=== PATIENT | male | born 1950 | race Caucasian/White ===

== ENCOUNTER → 2024-11-07 | Outpatient (CLI) | payer OTHER, MEDICARE, MEDICAID, SELFPAY ==
[2024-11-07 14:05] LABS: Basophils % (Auto) 0 % (0-2.5); Eosinophils # (Auto) 0.3 Thou/mm3 (0.0-0.5); Eosinophils % (Auto) 2 % (0-10); Hematocrit 28.1 % (41.0-53.0); Hemoglobin 8.9 g/dL (13.5-16.0); Immature Granulocytes % (Auto) 0 % (0-0); Immature Granulocytes Auto 0.06 Thou/mm3 (0.00-0.00); Lymphocytes # (Auto) 0.8 Thou/mm3 (1.0-4.8); Lymphocytes % (Auto) 5 % (10-50); Mean Corpuscular HGB Conc 31.7 g/dl (31.0-37.0); Mean Corpuscular Hemoglobin 25.3 pg (25.0-35.0); Mean Corpuscular Volume 80 fL (80-100); Monocytes # (Auto) 1.2 Thou/mm3 (0.0-0.8); Monocytes % (Auto) 8 % (0-12); Neutrophils # (Auto) 13.5 Thou/mm3 (1.8-7.7); Neutrophils % (Auto) 85 % (37-80); Nucleated Red Blood Cell % 0 /100 WBC (0); Platelet Count 288 Thou/mm3 (140-440); RDW Standard Deviation 45.9 fL (35.1-43.9); Red Blood Count 3.52 Miln/mm3 (4.50-5.90); White Blood Count 15.9 Thou/mm3 (3.8-10.6)
[2024-11-07 14:30] LABS: Alanine Aminotransferase < 7 U/L (10-49); Albumin, Serum 3.6 gm/dL (3.4-4.8); Albumin/Globulin Ratio 1.3 (1.2-2.2); Alkaline Phosphatase 91 U/L (46-116); Anion Gap 10 (7-16); Aspartate Amino Transferase 10 U/L (0-34); BUN/Creatinine Ratio 22 Ratio (12-20); Bilirubin,Total 0.2 mg/dL (0.3-1.2); Blood Urea Nitrogen 26 mg/dL (9-23); Calcium (Corrected) 9.3 mg/dL (8.5-10.1); Chloride 108 mMol/L (98-107); Creatinine (Component) 1.2 mg/dL (0.6-1.3); Globulin 2.8 gm/dL (2.3-3.5); Glucose 138 mg/dL (74-106); Osmolality,Calculated 291 (275-295); Potassium 4.2 mMol/L (3.4-5.1); Sodium 143 mMol/L (136-145); Total Protein 6.4 gm/dL (5.7-8.2); eGFR > 60 See Note
== END | disposition home or self-care (01) ==
PROVIDERS: Referring Provider Hospitalist; Visit Provider Hospitalist
DX: J18.9 Pneumonia, unspecified organism (principal); E11.22 Type 2 diabetes mellitus with diabetic chronic kidney disease; N18.9 Chronic kidney disease, unspecified; E11.319 Type 2 diabetes mellitus with unspecified diabetic retinopathy without macular edema
CPT/HCPCS: 36415; 80053; 85025

== ENCOUNTER 2024-12-22 17:33 | Emergency (ER) | payer MEDICARE, MEDICAID, SELFPAY ==
[2024-12-22] VITALS (7 sets, daily range): BP systolic 147–178; BP diastolic 65–84; PULSE 64–74; RESP 16–23; TEMP 36.6–37.1; O2SAT 92–99; BMI 31.2
--- NOTE | 2024-12-22 17:41 | XR_ITS ---
Examination: Duplex scan of the lower extremity, unilateral left Date and time of exam: December 22, 2024 1916 hours INDICATIONS: Left leg nonhealing wound in 3 months Technique: Duplex scan of the extremity veins using B-mode/grayscale imaging and Doppler spectral analysis and color flow Attention is directed to internal echogenicity, compression and augmentation involving these veins, color flow assessment, spectral analysis Findings: Major deep venous structures in the extremity demonstrate normal course and caliber. There is no evidence of deep vein thrombosis. No diagnostic visualization popliteal vein Normal color flow and spectral analysis Impression: No DVT demonstrated
--- NOTE | 2024-12-22 17:42 | PD.EDADULT ---
ED General RME/HPI General Chief complaint: Wound/Laceration Stated complaint: LEFT FOOT WOUND Time Seen by Provider: 12/22/24 17:40 Arrival date/time: 12/22/24 17:33 CC: Foot ulcer HPI patient presents to the ER via EMS from [facility] by the [facility] where the patient, as assessed by the physician, is concerned about an arterial clot in the left foot requesting CT angiogram rule out blood clot . Past medical history close left-sided weakness secondary to CVA CAD CKD BPH hyperlipidemia glaucoma hypertension diabetes type 2 and GERD. Related Data Home Medications ?Medication ?Instructions ?Recorded ?Confirmed aluminum-mag hydroxide-simethicone 20 ml PO [id number] PRN Heartburn 06/14/22 05/28/24 400 mg-400 mg-40 mg/5 mL oral susp (Mylanta Maximum Strength) bisacodyl 10 mg rectal suppository [address] Q48H PRN Constipation 06/14/22 05/28/24 cholecalciferol (vitamin D3) 25 25 mcg PO QDAY VIT D DEFICIENCY 06/14/22 05/28/24 mcg (1,000 unit) tablet finasteride 5 mg tablet 5 mg PO QDAY 06/14/22 05/28/24 labetalol 100 mg tablet 50 mg PO BID 06/14/22 05/28/24 latanoprost 0.005 % eye drops 1 drp ophthalmic (eye) HS 06/14/22 05/28/24 metformin 1,000 mg tablet 1,000 mg PO BID 06/14/22 05/28/24 pantoprazole 40 mg tablet,delayed 40 mg PO BIDAC 06/14/22 05/28/24 release sertraline 50 mg tablet 50 mg PO QDAY 06/14/22 05/28/24 tamsulosin 0.4 mg capsule 0.8 mg PO QDAY 06/14/22 05/28/24 timolol maleate 0.25 % eye drops 1 drp ophthalmic (eye) QDAY 06/14/22 05/28/24 trazodone 50 mg tablet 50 mg PO QHSPRN PRN INABILITY TO 06/14/22 05/28/24 REST/INSOMIA acetaminophen 325 mg tablet 650 mg PO Q4HR PRN ELEVATED 07/19/23 05/28/24 (Tylenol) TEMPERATURE acetaminophen 325 mg tablet 650 mg PO [id number] PRN PAIN 07/19/23 05/28/24 (Tylenol) atorvastatin 40 mg tablet 40 mg PO HS 07/19/23 05/28/24 gabapentin 100 mg capsule 100 mg PO TID 07/19/23 05/28/24 insulin human U-100 NPH-regulr 28 unit subcut BID 07/19/23 05/28/24 70-30 mix 100 unit/mL subcutaneous susp multivitamin with minerals 1 tab PO QDAY 07/19/23 05/28/24 (Multiple Vitamin-Minerals tablet) ondansetron HCl 4 mg tablet 4 mg PO Q6H PRN NAUSEA/EMESIS 07/19/23 05/28/24 sucralfate 1 gram tablet 1 g PO TID 07/19/23 05/28/24 aspirin 81 mg capsule,delayed 81 mg PO QDAY 05/04/24 05/28/24 release dextromethorphan-guaifenesin 10 10 ml PO Q4H PRN Cough 05/04/24 05/28/24 mg-100 mg/5 mL oral syrup ipratropium 0.5 mg-albuterol 3 mg 3 ml inhalation Q4H PRN SOB or 05/04/24 05/28/24 (2.5 mg base)/3 mL nebulization Wheezing soln hydrocodone 5 mg-acetaminophen 325 1 tab PO Q4H PRN Severe Pain 05/28/24 05/28/24 mg tablet (Scale Score 7-10) lisinopril 40 mg tablet 40 mg PO HS 05/28/24 05/28/24 magnesium hydroxide 400 mg/5 mL 30 ml PO Q24H PRN Constipation 05/28/24 05/28/24 oral suspension (Milk of Magnesia) triamcinolone acetonide 55 mcg 1 spray intranasal QDAY PRN 05/28/24 05/28/24 nasal spray aerosol (Nasacort Allergy Symptoms Allergy) Allergies Allergy/AdvReac Type Severity Reaction Status Date / Time No Known Allergies Allergy Verified 12/22/24 17:45 Past Medical History Past Medical History NEUROLOGIC: Positive Neurological Disorders, Cerebrovascular Accident and Transient Ischemic Attacks (TIA); Negative Dementia, Alzheimer's Disease, Brain Tumor, Meningitis, Seizures, Epilepsy, Multiple Sclerosis, Cerebral Palsy, Amyotrophic Lateral Sclerosis (ALS/Haley Gehrig's), Guillain-[place] Syndrome, Spina Bifida, Peripheral Neuropathy, Wilkes's Palsy, Subdural Hematoma, Migraine, Head Trauma, Spinal Cord Injury or Traumatic Brain Injury CARDIAC: Positive Cardiac Disorders, Atherosclerotic Heart Disease, Hypercholesterolemia and Hypertension; Negative Myocardial Infarction, Cardiac Arrhythmia, Atrial Fibrillation, Angina, Heart Murmur, Coronary Artery Disease, Peripheral Vascular Disease, Aneurysm, Congestive Heart Failure, Congenital Heart Disease, Rheumatic Fever, Cardiomyopathy, Edema, Pericarditis, Cellulitis, Deep Vein Thrombosis, Hypotension or Varicose Veins RESPIRATORY: Positive Pneumonia and Tuberculosis; Negative Chronic Obstructive Pulmonary Disease (COPD), Asthma, Bronchitis, Emphysema, Pulmonary Fibrosis, Cystic Fibrosis, Pulmonary Embolism, Pulmonary Edema or Sleep Apnea GASTROINTESTINAL: Positive Gastrointestinal Disorders, Gastroesophageal Reflux Disease and Obesity; Negative Hepatitis, Cirrhosis, Pancreatitis, Celiac Disease, Gall Bladder Disease, Gastrointestinal Bleed, Esophageal Varices, Loera's Esophagus, Colitis, Ulcerative Colitis, Diverticulitis, Diverticulosis, Ulcer, Colorectal Cancer, Irritable Bowel, Crohn's Disease, Obstructive Bowel, Hiatal Hernia or Hemorrhoids GENITOURINARY: Positive Genitourinary Disorders and Benign Prostatic Hyperplasia; Negative Renal Disease, Kidney Stones, Polycystic Kidney Disease, Neurogenic Bladder, Inguinal Hernia, Dialysis or Prostate Cancer REPRODUCTIVE: Negative Testicular Cancer MUSCULOSKELETAL: Negative Musculoskeletal Disorders, Muscular Dystrophy, Myasthenia Gravis, Marfan's Syndrome, Bone Cancer, Arthritis, Rheumatoid Arthritis, Osteoporosis, Degenerative Disk Disease, Gout, Scoliosis, Carpal Tunnel Syndrome, Fibromyalgia, Fractures, Degenerative Joint Disease, Osteomyelitis or Poliovirus ENT: Positive Glaucoma and Blind; Negative Cataracts, Retinal Detachment, Macular Degeneration, Ear Infection, Deafness, Head Trauma or Eye Prosthesis ENDOCRINE: Positive Endocrine Disorders and Diabetes Mellitus Type 2; Negative Diabetes Mellitus Type 1, Hypoglycemia, Lorri's Syndrome, Benedict's Disease, Hyperthyroidism, Hypothyroidism, Parathyroid Disease, Pituitary Disease, Systemic Lupus Erythematosus, Syndrome of Inappropriate Antidiuretic Hormone (SIADH), Adrenal Disease or Graves' Disease HEMATOLOGIC: Positive Blood Disorders and Anemia; Negative Leukemia, Hemophilia, Thalassemia, Sickle Cell Disease or Clotting Problems PSYCHO/SOCIAL: Positive Depression, Anxiety and Post Traumatic Stress Disorder; Negative Psychiatric Problems, Schizophrenia, Recreational Drug Use, Bipolar Disorder, Behavior Problems, Self-Mutilation, Attention Deficit Disorder, Attention Deficit Hyperactivity Disorder or Eating Disorder OTHER HISTORY: Positive Autoimmune Disease, Falls and MRSA; Negative Hospitalization, Down Syndrome, Autism, Developmental Delay, Shingles, Blood Transfusions, Blood Transfusion Reaction, Anesthesia Reactions, Organ Transplant, Chemotherapy, Radiation Therapy, Hyperbaric Therapy, VRSA, Vancomycin-Resistant Enterococci, Human Immunodeficiency Virus (HIV), Chicken Pox, Measles, Mumps, Rubella ([place] Measles), Pertussis, Clostridium Difficile, Colorectal Cancer, Lung Cancer, Prostate Cancer or Testicular Cancer Family History FAMILY HISTORY: Positive Family Cardiac Disorders; Negative Family Psychiatric Problems, Family Respiratory Disorders, Family Gastrointestinal Problems, Family Cancer, Family Surgery or Family Anesthesia Reaction Surgical History SURGICAL: Negative Cardiac Surgery, Open Heart Surgery, Coronary Artery Bypass Graft, Valve Replacement, Vascular Surgery, Coronary Stent, Cardiac Catheterization, Pacemaker, Angiogram, Auto Implanted Cardiovert Defib, Carotid Endarterectomy, Endocrine Surgery, Thyroidectomy, Ear Surgery, Tympanostomy Tube, Eye Surgery, Nose Surgery, Oral Surgery, Tonsillectomy, Adenoidectomy, Cochlear Implant, Corneal Transplant, Throat Surgery, Abdominal Surgery, Tracheostomy, Gastric Bypass Surgery, Gastrostomy, Bowel Surgery, Nephrectomy, Transurethral Resection, Joint Replacement, Amputation, Open Reduction Internal Fixation, Arthroscopy, Neurologic Surgery, Brain Shunt, Vasectomy or Organ Transplant Social History SMOKING STATUS: Never smoker SECOND HAND EXPOSURE: No ED Exam Narrative Physical exam: [General: Deconditioned, but appears not in any acute distress Head normocephalic HEENT: Eyes: Pupils are PERRLA EOMs are intact mouth pink dry membranes uvula is midline swallow symmetrical phonation is normal all the subsystems of HEENT are within acceptable limits Neck is supple nontender no JVD no edema Chest equal chest rise nontender to palpation Respiratory: Clear to auscultation no wheezes crackles or rubs CV: Rate rhythm is regular no murmurs rubs or clicks Abdomen is distended secondary to body habitus soft nontender no masses positive bowel sounds all 4 quadrants Back: No CVA tenderness no spinous process tenderness from cervical spine thoracic and lumbar spine Skin: Left foot: Eschar to the dorsum of the foot, the blade of the foot, and a calcaneus extending up to the insertion of the Achilles tendon. No surrounding erythema edema no open exudative lesions no bleeding. Otherwise skin is pale, intact no petechiae rash induration ulceration or crepitus Extremities: Left-sided weakness secondary to old CVA. Neuro: Awake alert oriented x3 Glascow coma 15 no focal deficits] Course Quality Measures none Orders Category Date Time Status CT Screening NOW Care 12/22/24 19:47 Completed Transfer to another facility [Transfer/Discharge] Stat Discharge 12/23/24 05:[address] angio LE LT Stat Exams 12/22/24 19:47 Completed US venous doppler LE LT Stat Exams 12/22/24 17:41 Completed CBC Stat Lab 12/22/24 18:35 Completed CMP [Comprehensive Metabolic Panel] Stat Lab 12/22/24 18:35 Completed Lactic Acid [Lactate (Lactic Acid)] Stat Lab 12/22/24 18:35 Completed PT [Prothrombin Time with INR] Stat Lab 12/22/24 18:35 Completed PTT [Partial Thromboplastin Time] Stat Lab 12/22/24 18:35 Completed Procalcitonin Stat Lab 12/22/24 18:35 Completed Vancomycin Inj 2,000 mg Med 12/23/24 01:15 Discontinued Sodium Chloride 0.9% 500 ml [Ns] 500 ml IV X1 Vancomycin/Ns 1 gm Ivpb 200 ml Med 12/23/24 04:15 Discontinued IV X1 cefTRIAXone/D5w 1gm IV premix [Rocephin/D5w 1gm IV Med 12/23/24 01:15 Discontinued premix] 1 gm in 50 ml IV X1 Vital Signs Vital signs: Vital Signs Temperature 98.7 F 12/22/24 17:44 Pulse Rate 65 12/22/24 17:44 Respiratory Rate 16 12/22/24 17:44 Blood Pressure 163/65 H 12/22/24 17:44 Pulse Oximetry (%) 94 L 12/22/24 17:44 Oxygen Delivery Method Room Air 12/22/24 17:44 Discharge Plan Plan Patient Disposition: [facility] Facility Pt Being Transferred to: [facility] Service Needed for Transfer: Vascular Surgery Prescriptions/Referrals Prescriptions/Med Rec: No Action hydrocodone-acetaminophen 5-325 mg Tablet 1 tab PO Q4H PRN (Reason: Severe Pain (Scale Score 7-10)) magnesium hydroxide [Milk of Magnesia] 400 mg/5 mL Suspension 30 ml PO Q24H PRN (Reason: Constipation) triamcinolone acetonide [Nasacort Allergy] 55 mcg Aerosol,Dazey 1 spray INTRANASAL QDAY PRN (Reason: Allergy Symptoms) Rx Instructions: administer into each nostril lisinopril 40 mg Tablet 40 mg PO HS bisacodyl 10 mg Suppository [address] Q48H PRN (Reason: Constipation) Rx Instructions: INSERT 1 SUPPOSITORY RECTALLY EVERY 48 HOURS NEEDED FOR NO BM finasteride 5 mg Tablet 5 mg PO QDAY cholecalciferol (vitamin D3) 25 mcg (1,000 unit) Tablet 25 mcg PO QDAY latanoprost 0.005 % Drops 1 drp OPHTHALMIC (EYE) HS Rx Instructions: BOTH EYES labetalol 100 mg Tablet 50 mg PO BID Rx Instructions: Hold if SBP <90 or HR <60 trazodone 50 mg Tablet 50 mg PO QHSPRN PRN (Reason: INABILITY TO REST/INSOMIA) Rx Instructions: GIVE 1-2 TABLETS QHS FOR INSOMIA PRN tamsulosin 0.4 mg Capsule 0.8 mg PO QDAY timolol maleate 0.25 % Drops 1 drp OPHTHALMIC (EYE) QDAY Rx Instructions: BOTH EYES pantoprazole 40 mg Tablet,Delayed Release (Dr/Ec) 40 mg PO BIDAC metformin 1,000 mg Tablet 1,000 mg PO BID sertraline 50 mg Tablet 50 mg PO QDAY alum-mag hydroxide-simeth [Mylanta Maximum Strength] 400-400-40 mg/5 mL Suspension 20 ml PO [id number] PRN (Reason: Heartburn) atorvastatin 40 mg Tablet 40 mg PO HS gabapentin 100 mg Capsule 100 mg PO TID insulin NPH and regular human 100 unit/mL (70-30) Suspension 28 unit SUBCUT BID Rx Instructions: Hold for blood glucose <130 Multiple Vitamin-Minerals Tablet 1 tab PO QDAY sucralfate 1 gram Tablet 1 g PO TID acetaminophen [Tylenol] 325 mg Tablet 650 mg PO Q4HR PRN (Reason: ELEVATED TEMPERATURE) acetaminophen [Tylenol] 325 mg Tablet 650 mg PO [id number] PRN (Reason: PAIN) ondansetron HCl 4 mg Tablet 4 mg PO Q6H PRN (Reason: NAUSEA/EMESIS) aspirin 81 mg Capsule,Delayed Release(Dr/Ec) 81 mg PO QDAY dextromethorphan-guaifenesin 10-100 mg/5 mL Syrup 10 ml PO Q4H PRN (Reason: Cough) ipratropium-albuterol 0.5 mg-3 mg(2.5 mg base)/3 mL Solution For Nebulization 3 ml INHALATION Q4H PRN (Reason: SOB or Wheezing) Referrals: No Primary/Family,Physician [Primary Care Provider] - In 1 week Problem List Clinical Impression: Arterial occlusion, lower extremity Patient/Caregiver Discharge Instructions Print Language: Zambian Stand Alone Forms: Kaci Award Info., Patient Portal Info Letter MDM Lab Interpretation Lab(s) interpretation(s): CBC shows leukocytosis of 12.1 anemia of 7.8 and 23.5 respectively no thrombocytopenia note with a hemoglobin of 7.8 review of the medical record show this is a baseline for his chronic but stable anemia. Coags within acceptable limits Sodium 134 glucose of 144, no other significant electrolyte imbalances BUN of 27 creatinine 1.3, no transaminitis or T. bili elevation Procalcitonin is 0.09 Lactic of 2.0 Medication Administration(s) Medication Administration History Discontinued Medications Ceftriaxone Sodium/Dextrose (Rocephin/D5w 1gm Iv Premix) 1 gm in 50 mls @ 100 mls/hr IV X1 ONE Stop: 12/23/24 01:44 Last Infusion: 12/23/24 03:05 Dose: Infused Documented By: Admin: 12/23/24 02:34 Dose: 100 mls/hr Documented By: JAUN Vancomycin HCl 2,000 mg/ (Sodium Chloride) 500 mls @ 150 mls/hr IV X1 ONE Stop: 12/23/24 04:34 Last Admin: 12/23/24 03:47 Dose: Not Given Documented By: Non-Admin Reason: Cancelled by Provider Vancomycin/Sodium Chloride (Vancomycin/Ns 1 Gm Ivpb) 200 mls @ 120 mls/hr IV X1 ONE Stop: 12/23/24 05:54 Last Admin: 12/23/24 04:44 Dose: 120 mls/hr Documented By: JAUN
--- NOTE | 2024-12-22 18:27 | PC.NURSE ---
PT BROUGHT IN BY AMBULANCE FROM [facility] FOR C/O BLOOD CLOT TO LEFT LEG. PT IS A/OX3, PT ANSWERING ALL QUESTIONS. DRESSING REMOVED AND PT PRESENTS WITH ESCHAR TO DORSAL, LATERAL AND HEEL OF LEFT FOOT. PA IN TO SEE PT AND WILL FOLLOW THROUGH WITH ORDER.
[2024-12-22 18:51] LABS: Basophils % (Auto) 0 % (0-2.5); Eosinophils # (Auto) 0.5 Thou/mm3 (0.0-0.5); Eosinophils % (Auto) 4 % (0-10); Hematocrit 23.5 % (41.0-53.0); Immature Granulocytes % (Auto) 1 % (0-0); Immature Granulocytes Auto 0.06 Thou/mm3 (0.00-0.00); Lymphocytes % (Auto) 17 % (10-50); Mean Corpuscular HGB Conc 33.2 g/dl (31.0-37.0); Mean Corpuscular Hemoglobin 25.6 pg (25.0-35.0); Mean Corpuscular Volume 77 fL (80-100); Monocytes # (Auto) 0.9 Thou/mm3 (0.0-0.8); Monocytes % (Auto) 8 % (0-12); Neutrophils # (Auto) 8.6 Thou/mm3 (1.8-7.7); Neutrophils % (Auto) 71 % (37-80); Nucleated Red Blood Cell % 0 /100 WBC (0); Platelet Count 319 Thou/mm3 (140-440); RDW Standard Deviation 39.4 fL (35.1-43.9); Red Blood Count 3.05 Miln/mm3 (4.50-5.90); White Blood Count 12.1 Thou/mm3 (3.8-10.6)
[2024-12-22 18:54] LABS: Hemoglobin 7.8 g/dL (13.5-16.0)
[2024-12-22 19:08] LABS: INR 1.1 (0.9-1.3); Partial Thromboplastin Time 29.8 Seconds (22.0-36.0); Prothrombin Time 12.1 Seconds (9.0-12.2)
[2024-12-22 19:28] LABS: Alanine Aminotransferase < 7 U/L (10-49); Albumin, Serum 3.7 gm/dL (3.4-4.8); Albumin/Globulin Ratio 1.2 (1.2-2.2); Alkaline Phosphatase 70 U/L (46-116); Anion Gap 10 (7-16); Aspartate Amino Transferase < 8 U/L (0-34); BUN/Creatinine Ratio 21 Ratio (12-20); Bilirubin,Total < 0.2 mg/dL (0.3-1.2); Blood Urea Nitrogen 27 mg/dL (9-23); Calcium 9.7 mg/dL (8.3-10.6); Calcium (Corrected) 9.9 mg/dL (8.5-10.1); Carbon Dioxide 25.4 mMol/L (20.0-31.0); Chloride 99 mMol/L (98-107); Creatinine (Component) 1.3 mg/dL (0.6-1.3); Estimated Creatinine Clearance 63.2 mL/min (>60); Globulin 3.2 gm/dL (2.3-3.5); Glucose 144 mg/dL (74-106); Osmolality,Calculated 276 (275-295); Potassium 4.4 mMol/L (3.4-5.1); Procalcitonin 0.09 ng/ml (0.0-0.49); Sodium 134 mMol/L (136-145); Total Protein 6.9 gm/dL (5.7-8.2); eGFR 57 See Note
--- NOTE | 2024-12-22 19:47 | XR_ITS ---
Examination: CTA left lower extremity with intravenous contrast 2-D reconstructions 3-D reconstructions, vascular Date and time of exam: December 22, 2024 1012 hours INDICATIONS: Nonhealing left foot wound CTDI: vol (mGy) 2 months DLP: (mGycm) 0.5 Technique: Multiple axial sections of the left lower extremity have been obtained. 2-D sagittal and coronal reconstructions. 3-D angiographic renderings, 3-D volume renderings, 3D post processing, vascular maximum intensity projections obtained. Contrast administered is 60 cc Isovue 370. Low dose protocols were performed. One or more of the following dose reduction techniques were used; automated exposure control, adjustment of the mA and/or KV according to patient size, use of iterative reconstruction technique. Findings: Heavy calcification anterior tibial posterior tibial main continuation trunk with no vessel opacification noted IMPRESSION: Severe obstructive arterial disease trifurcation arteries below the knee Consider arterial Doppler sonographic images left lower extremity follow-up
--- NOTE | 2024-12-22 20:14 | PC.NURSE ---
Pt resting quietly. VS stable. Denies pain.
--- NOTE | 2024-12-22 23:18 | PD.EDADDENDU ---
Emergency Room Addendum <Ana Rouse - Last Filed: 12/22/24 23:19> Addendum Narrative: I took over the care from Abdullahi Owusu NP at 11 PM on 12/22/2024, see his notes for complete H&P and ED course. I reviewed all diagnostic test results. My review of the US venous doppler of the left lower extremity report is negative for DVT. My review of the CT angio left lower extremity report is severe obstructive arterial disease trifurcation arteries below the knee. At this point, diagnoses include Treatment here included Significant improvement <Jatin Root MD - Last Filed: 12/23/24 05:10> Addendum Narrative: I took over the care from Abdullahi Owusu NP at 11 PM on 12/22/2024, see his notes for complete H&P and ED course. I was asked to review the left lower extremity CTA report. My review of the CT angio left lower extremity report is severe obstructive arterial disease below the knee. Pending transfer to another facility for vascular services. Jatin Root MD
--- NOTE | 2024-12-22 23:26 | PC.NURSE ---
[facility] FAXED PAPERWORK FOR POSSIBLE VASCULAR, LEFT MESSAGE
[2024-12-23] VITALS (7 sets, daily range): BP systolic 154–178; BP diastolic 64–77; PULSE 61–76; RESP 12–21; TEMP 36.7; O2SAT 89–96
--- NOTE | 2024-12-23 00:50 | PC.NURSE ---
[address] TO [facility]. LEFT MESSAGE.
--- NOTE | 2024-12-23 00:51 | PC.NURSE ---
[facility]
--- NOTE | 2024-12-23 02:30 | PC.NURSE ---
FROYLAN FROM THE [facility] CALLED AND DR. COOPER THEIR VASCULAR PROVIDER IS A CAPACITY AND CAN NOT ACCEPT THIS PT UNDER HIS CARE AT THIS TIME DUE TO HIM COVERING 5 DIFFERENT HOSPITALS.
[2024-12-23] MEDS: cefTRIAXone/D5w 1gm IV premix 1 GM/50 ML BAG IV (02:34)
--- NOTE | 2024-12-23 02:36 | PC.NURSE ---
dressing to L foot removed for Dr Root to assess. dressing then reapplied..
--- NOTE | 2024-12-23 02:55 | PC.NURSE ---
0246 [facility] CONTACTED AT THIS TIME, DR CHAVEZ SPEAKING WITH TF NURSE.
[2024-12-23] MEDS: VANCOMYCIN/NS 1 GM IVPB 200 ML IV (04:44)
--- NOTE | 2024-12-23 04:46 | PC.NURSE ---
pt resting quietly, sleeping off and on. pt denies pain and states he id comfortable.assisted pt to reposistion q2 hrs.
--- NOTE | 2024-12-23 06:32 | PC.NURSE ---
Report called to Ava ORTIZ at [facility]. pt taken by ambulance at 0636
== END 2024-12-23 06:25 | disposition short-term general hospital (02) ==
PROVIDERS: Registered Nurse General Practice; Emergency Provider Emergency Medicine
DX: I77.1 Stricture of artery (principal); E11.22 Type 2 diabetes mellitus with diabetic chronic kidney disease; I12.9 Hypertensive chronic kidney disease with stage 1 through stage 4 chronic kidney disease, or unspecified chronic kidney disease; N18.9 Chronic kidney disease, unspecified; N40.0 Benign prostatic hyperplasia without lower urinary tract symptoms; K21.9 Gastro-esophageal reflux disease without esophagitis; I25.10 Atherosclerotic heart disease of native coronary artery without angina pectoris; Z86.73 Personal history of transient ischemic attack (TIA), and cerebral infarction without residual deficits
CPT/HCPCS: 36415; 73706; 80053; 83605; 84145; 85025; 85610; 85730; 93971; 96365; 99285; A4649; J0696; J3370; Q9967

== ENCOUNTER 2025-02-18 10:57 | Inpatient (IN) | payer MEDICARE, MEDICAID, SELFPAY ==
[2025-02-18] VITALS (7 sets, daily range): BP systolic 125–146; BP diastolic 65–77; PULSE 74–107; RESP 17–18; TEMP 36.8–37.4; O2SAT 96–100; BMI 31.6
--- NOTE | 2025-02-18 11:27 | XR_ITS ---
Examination: Foot, left, 3 views Technique: AP, oblique, lateral views foot, 3 views Date and time of exam: February 18, 2025 1143 hours INDICATIONS: Nonhealing wounds foot this month. FINDINGS: Cortical bone destruction involving the entire fifth metatarsal especially distal and proximal Cortical bone destruction proximal aspect proximal phalanx fifth digit Severe osteopenia Heavy soft tissue vascular calcification 5 mm linear foreign body in the soft tissue adjacent to the proximal phalanx first digit IMPRESSION: Osteomyelitis fifth metatarsal and proximal phalanx fifth digit
--- NOTE | 2025-02-18 11:34 | XR_ITS ---
Examination: CTA right lower extremity with intravenous contrast 2-D reconstructions 3-D reconstructions, vascular Date and time of exam: February 18, 2025 1511 hours INDICATIONS: Right lower extremity pain nonhealing ulcerations CTDI: vol (mGy) 6.81 DLP: (mGycm) 764 Technique: Multiple axial sections of the right lower extremity have been obtained.. 2-D sagittal and coronal reconstructions. 3-D angiographic renderings, 3-D volume renderings, 3D post processing, vascular maximum intensity projections obtained. Contrast administered is 100 cc Isovue-370. Low dose protocols were performed. One or more of the following dose reduction techniques were used; automated exposure control, adjustment of the mA and/or KV according to patient size, use of iterative reconstruction technique. 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
[2025-02-18] MEDS: ceFAZolin/D5W 1 GM IVPB 1 GM/50 ML BAG IV (11:41)
[2025-02-18 11:47] LABS: Lactate (Lactic Acid) 3.1 mMol/L (0.4-2.0)
[2025-02-18 11:52] LABS: Basophils # (Auto) 0.0 Thou/mm3 (0.0-0.2); Basophils % (Auto) 0 % (0-2.5); Eosinophils # (Auto) 1.4 Thou/mm3 (0.0-0.5); Eosinophils % (Auto) 9 % (0-10); Hematocrit 28.7 % (41.0-53.0); Hemoglobin 9.0 g/dL (13.5-16.0); Immature Granulocytes Auto 0.08 Thou/mm3 (0.00-0.00); Lymphocytes # (Auto) 1.5 Thou/mm3 (1.0-4.8); Lymphocytes % (Auto) 9 % (10-50); Mean Corpuscular HGB Conc 31.4 g/dl (31.0-37.0); Mean Corpuscular Hemoglobin 24.8 pg (25.0-35.0); Mean Corpuscular Volume 79 fL (80-100); Monocytes # (Auto) 1.3 Thou/mm3 (0.0-0.8); Monocytes % (Auto) 8 % (0-12); Neutrophils # (Auto) 11.3 Thou/mm3 (1.8-7.7); Neutrophils % (Auto) 73 % (37-80); Nucleated Red Blood Cell # 0.00 Thou/mm3 (0.00-0.00); Nucleated Red Blood Cell % 0 /100 WBC (0); Platelet Count 350 Thou/mm3 (140-440); RDW Standard Deviation 44.1 fL (35.1-43.9); Red Blood Count 3.63 Miln/mm3 (4.50-5.90); White Blood Count 15.5 Thou/mm3 (3.8-10.6)
--- NOTE | 2025-02-18 12:05 | PD.EDWOUND ---
ED Wound/Laceration-RME/HPI General Chief Complaint: Wound/Laceration Stated Complaint: FOOT INFECTION Time Seen by Provider: 02/18/25 11:12 Arrival date/time: 02/18/25 10:57 Patient is a 74-year-old male who is coming from a assisted living facility. Sent here for acute on chronic left foot wounds. He has a history of chronic kidney disease, type 2 diabetes, hyperlipidemia, depression, prior CVA, and peripheral coronary artery disease. He was seen here in November and transferred to [facility] in [place], [place]. 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 Patient was seen by Dr. Court Pickett with vascular surgery and an angiogram was performed. Patient was found to have mild stenosis within the superficial femoral artery but was less than 40%. Popliteal artery was patent. Limitations: no limitations Related Data Home Medications ?Medication ?Instructions ?Recorded ?Confirmed aluminum-mag hydroxide-simethicone 20 ml PO [id number] PRN Heartburn 06/14/22 05/28/24 400 mg-400 mg-40 mg/5 mL oral susp (Mylanta Maximum Strength) bisacodyl 10 mg rectal suppository 10 mg MT Q48H PRN Constipation 06/14/22 05/28/24 cholecalciferol (vitamin D3) 25 25 mcg PO QDAY VIT D DEFICIENCY 06/14/22 05/28/24 mcg (1,000 unit) tablet finasteride 5 mg tablet 5 mg PO QDAY 06/14/22 05/28/24 labetalol 100 mg tablet 50 mg PO BID 06/14/22 05/28/24 latanoprost 0.005 % eye drops 1 drp ophthalmic (eye) HS 06/14/22 05/28/24 metformin 1,000 mg tablet 1,000 mg PO BID 06/14/22 05/28/24 pantoprazole 40 mg tablet,delayed 40 mg PO BIDAC 06/14/22 05/28/24 release sertraline 50 mg tablet 50 mg PO QDAY 06/14/22 05/28/24 tamsulosin 0.4 mg capsule 0.8 mg PO QDAY 06/14/22 05/28/24 timolol maleate 0.25 % eye drops 1 drp ophthalmic (eye) QDAY 06/14/22 05/28/24 trazodone 50 mg tablet 50 mg PO QHSPRN PRN INABILITY TO 06/14/22 05/28/24 REST/INSOMIA acetaminophen 325 mg tablet 650 mg PO Q4HR PRN ELEVATED 07/19/23 05/28/24 (Tylenol) TEMPERATURE acetaminophen 325 mg tablet 650 mg PO [id number] PRN PAIN 07/19/23 05/28/24 (Tylenol) atorvastatin 40 mg tablet 40 mg PO HS 07/19/23 05/28/24 gabapentin 100 mg capsule 100 mg PO TID 07/19/23 05/28/24 insulin human U-100 NPH-regulr 28 unit subcut BID 07/19/23 05/28/24 70-30 mix 100 unit/mL subcutaneous susp multivitamin with minerals 1 tab PO QDAY 07/19/23 05/28/24 (Multiple Vitamin-Minerals tablet) ondansetron HCl 4 mg tablet 4 mg PO Q6H PRN NAUSEA/EMESIS 07/19/23 05/28/24 sucralfate 1 gram tablet 1 g PO TID 07/19/23 05/28/24 aspirin 81 mg capsule,delayed 81 mg PO QDAY 05/04/24 05/28/24 release dextromethorphan-guaifenesin 10 10 ml PO Q4H PRN Cough 05/04/24 05/28/24 mg-100 mg/5 mL oral syrup ipratropium 0.5 mg-albuterol 3 mg 3 ml inhalation Q4H PRN SOB or 05/04/24 05/28/24 (2.5 mg base)/3 mL nebulization Wheezing soln hydrocodone 5 mg-acetaminophen 325 1 tab PO Q4H PRN Severe Pain 05/28/24 05/28/24 mg tablet (Scale Score 7-10) lisinopril 40 mg tablet 40 mg PO HS 05/28/24 05/28/24 magnesium hydroxide 400 mg/5 mL 30 ml PO Q24H PRN Constipation 05/28/24 05/28/24 oral suspension (Milk of Magnesia) triamcinolone acetonide 55 mcg 1 spray intranasal QDAY PRN 05/28/24 05/28/24 nasal spray aerosol (Nasacort Allergy Symptoms Allergy) Allergies Allergy/AdvReac Type Severity Reaction Status Date / Time No Known Allergies Allergy Verified 12/22/24 17:45 Review of Systems Review of Systems Systems Reviewed: All systems reviewed, normal except as documented ED Exam General Limitations: Present no limitations General appearance: Present alert and in no apparent distress Head Head exam: Present atraumatic Eye Eye exam: Present normal appearance, PERRL and EOMI ENT ENT exam: Present normal exam, normal oropharynx and mucous membranes moist Neck Neck exam: Present normal inspection, full ROM and trachea midline Chest Chest inspection: Present normal inspection and symmetric chest wall rise Respiratory Respiratory exam: Present normal lung sounds bilaterally Cardiovascular Cardiovascular exam: Present regular rate, normal rhythm and normal heart sounds Abdominal Exam Abdominal exam: Present soft and normal bowel sounds Extremities Exam Extremities exam: Present normal inspection Neurological Exam Neurological exam: Present alert and oriented X3 Psychiatric Psychiatric exam: Present normal affect and normal mood Skin Skin exam: Present other (significant wounds on the left foot involving the lateral aspect, posterior aspect, and dorsal aspect. ) Course Course Course Narrative: Patient's labs were obtained and he has a leukocytosis of 15.5 K, initial lactic acid is Numerous facilities were contacted regarding transfer to consider vascular or podiatry services without success. At approximately 23:45 PM, Dr Stein with general surgery was contacted. Dr. Stein states he is willing to see the patient in the morning to consider amputation. This was discussed with the patient who stated he understood that he would be evaluated in the morning by general surgery for possible amputation. [facility] who will evaluate the patient for admission Quality Measures none Orders Category Date Time Status CT Screening NOW Care 02/18/25 11:[address] Screening NOW Care 02/18/25 16:[address] Screening X1 Care 02/18/25 16:31 Completed Glucose [Bedside Blood Glucose] NOW Care 02/18/25 11:27 Active Insert IV NOW Care 02/18/25 11:45 Active Referral Wound Care Stat Cons 02/18/25 12:[address] angio LE LT Stat Exams 02/18/25 16:[address] angio LE RT Stat Exams 02/18/25 11:34 Completed US arterial duplex FANTASMA LE BI Stat Exams 02/18/25 23:34 Ordered US arterial duplex LE LT Stat Exams 02/18/25 23:34 Ordered XR foot comp LT min 3V Stat Exams 02/18/25 16:31 Completed XR foot comp RT min 3V Stat Exams 02/18/25 11:27 Taken Blood Culture (Lab) Stat Lab 02/18/25 11:43 Received CBC Stat Lab 02/18/25 11:40 Completed CMP [Comprehensive Metabolic Panel] Stat Lab 02/18/25 11:40 Completed CRP [C-Reactive Protein] Stat Lab 02/18/25 11:40 Completed Lactic Acid [Lactate (Lactic Acid)] Stat Lab 02/18/25 11:40 Completed Lactic Acid, 3 HR Stat Lab 02/18/25 15:56 Completed Wound Cult and GS, Anaer Stat Lab 02/18/25 11:40 Results Lidocaine 1% 20 ml [Xylocaine 1% 20 ML] Med 02/18/25 12:38 Discontinued 20 ml INFL X1 ONE Sodium Chloride 0.9% 500 ml [Ns] 500 ml Med 02/18/25 17:55 Discontinued IV 999 mls/hr ceFAZolin/D5W 1 GM IVPB [Ancef Ivpb] Med 02/18/25 11:29 Discontinued 1 gm in 50 ml IV X1 Vital Signs Vital signs: Vital Signs Temperature 98.2 F 02/18/25 10:58 Pulse Rate 107 H 02/18/25 10:58 Respiratory Rate 18 02/18/25 10:58 Blood Pressure 145/77 H 02/18/25 10:58 Pulse Oximetry (%) 96 02/18/25 10:58 Oxygen Delivery Method Room Air 02/18/25 10:58 Wound / Laceration MDM Narrative MDM Narrative:: 02/18/25 10:57 Patient is a 74-year-old male who is coming from a assisted living facility. He has a history of chronic kidney disease, type 2 diabetes, hyperlipidemia, depression, prior CVA, and peripheral coronary artery disease. He was seen here in November and transferred to [facility] in [place], [place]. 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 Patient was seen by Dr. Court Pickett with vascular surgery and an angiogram was performed. Patient was found to have mild stenosis within the superficial femoral artery but was less than 40%. Popliteal artery was patent. On exam, patient has significant wounds on the left foot involving the lateral aspect, posterior aspect, and dorsal aspect. No pulses were appreciated. Cap refill is greater than 4 seconds. Wound culture was obtained. X-ray was obtained which revealed diffuse osteomyelitis. I believe assessing the bilateral legs for arterial involvement was prudent at this time as patient has had known arterial vascular disease involving the right leg. Unfortunately we obtained studies of the right leg only and not the affected leg. Due to hospital protocols, I am unable to obtain CT of the left leg. I do believe transfer is warranted as we do not have the vascular intervention or podiatry available at this hospital. Patient may benefit from transfer where studies and appropriate surgical interventions can occur. Patient has a leukocytosis of 15.5 K, hemoglobin is 9.0, hematocrit is 28.7. Creatinine is 1.1. Glucose is 197. Metabolic panel is essentially unremarkable. CRP is 11.6. Lactic acid is 1.5 Patient received a dose of Ancef 1 g here. Patient data External records reviewed:: [facility] previous records Clinical information provided by:: patient and EMS Social determinants that could affect healthcare access:: mental health Patient has the following chronic illnesses:: Hyperlipidemia, hypertension, diabetes, peripheral artery disease, developmentally delayed How is presenting disease/condition affected by chronic disease/condition?: exacerbated by Evaluation data The following diagnostics were reviewed and interpreted by me:: lab results (Cytosis at 15.5 K, anemia with a hemoglobin 9.0 and hematocrit of 28.7. Hyperglycemia at 197, CMP is otherwise unremarkable. CRP is elevated 11.6) and radiology exam(s) (Osteomyelitis fifth metatarsal and proximal phalanx fifth digit) Lab and/or radiology exams considered but not ordered:: N/A Interpretation Summary: Osteomyelitis fifth metatarsal and proximal phalanx fifth digit Medications / Prescriptions Medications or Prescriptions considered but not ordered:: N/A Medication administrations:: Medication Administration History Discontinued Medications Cefazolin Sodium/Dextrose (Ancef Ivpb) 1 gm in 50 mls @ 100 mls/hr IV X1 ONE Stop: 02/18/25 11:58 Last Infusion: 02/18/25 12:14 Dose: Infused Documented By: Admin: 02/18/25 11:41 Dose: 100 mls/hr Documented By: IKER Sodium Chloride (Ns) 500 mls @ 999 mls/hr IV .Q31M ONE Stop: 02/18/25 18:25 Last Infusion: 02/18/25 18:59 Dose: Infused Documented By: Admin: 02/18/25 18:28 Dose: 999 mls/hr Documented By: BRITTA Lidocaine HCl (Lidocaine Hcl 1% 20 Ml Vial) 20 ml INFL X1 ONE Stop: 02/18/25 12:39 See above Consultations Consultation(s) initiated? (list below): No Diagnosis Wound Differential Diagnosis: abscess and avulsion of skin Most likely diagnosis given after review of the tests above:: Osteomyelitis fifth metatarsal and proximal phalanx fifth digit Admission Indicated Admission indicated?: indicated Admission Request Was there a request for admission?: Yes Admission Attestation Admission request attestation: Discussed case with [] from Hospitalist service regarding admission. Discussed patients ED course, exam findings, labs, and radiology results. The Hospitalist [agrees,declines] to accept the patient for admission. Disposition Plan Disposition Plan: Admit Discharge Plan Plan Patient Disposition: Admit Acute Care w/in Hospital Patient condition on transfer: Stable Prescriptions/Referrals Prescriptions/Med Rec: No Action hydrocodone-acetaminophen 5-325 mg Tablet 1 tab PO Q4H PRN (Reason: Severe Pain (Scale Score 7-10)) magnesium hydroxide [Milk of Magnesia] 400 mg/5 mL Suspension 30 ml PO Q24H PRN (Reason: Constipation) triamcinolone acetonide [Nasacort Allergy] 55 mcg Aerosol,Tyler 1 spray INTRANASAL QDAY PRN (Reason: Allergy Symptoms) Rx Instructions: administer into each nostril lisinopril 40 mg Tablet 40 mg PO HS bisacodyl 10 mg Suppository 10 mg MT Q48H PRN (Reason: Constipation) Rx Instructions: INSERT 1 SUPPOSITORY RECTALLY EVERY 48 HOURS NEEDED FOR NO BM finasteride 5 mg Tablet 5 mg PO QDAY cholecalciferol (vitamin D3) 25 mcg (1,000 unit) Tablet 25 mcg PO QDAY latanoprost 0.005 % Drops 1 drp OPHTHALMIC (EYE) HS Rx Instructions: BOTH EYES labetalol 100 mg Tablet 50 mg PO BID Rx Instructions: Hold if SBP <90 or HR <60 trazodone 50 mg Tablet 50 mg PO QHSPRN PRN (Reason: INABILITY TO REST/INSOMIA) Rx Instructions: GIVE 1-2 TABLETS QHS FOR INSOMIA PRN tamsulosin 0.4 mg Capsule 0.8 mg PO QDAY timolol maleate 0.25 % Drops 1 drp OPHTHALMIC (EYE) QDAY Rx Instructions: BOTH EYES pantoprazole 40 mg Tablet,Delayed Release (Dr/Ec) 40 mg PO BIDAC metformin 1,000 mg Tablet 1,000 mg PO BID sertraline 50 mg Tablet 50 mg PO QDAY alum-mag hydroxide-simeth [Mylanta Maximum Strength] 400-400-40 mg/5 mL Suspension 20 ml PO [id number] PRN (Reason: Heartburn) atorvastatin 40 mg Tablet 40 mg PO HS gabapentin 100 mg Capsule 100 mg PO TID insulin NPH and regular human 100 unit/mL (70-30) Suspension 28 unit SUBCUT BID Rx Instructions: Hold for blood glucose <130 Multiple Vitamin-Minerals Tablet 1 tab PO QDAY sucralfate 1 gram Tablet 1 g PO TID acetaminophen [Tylenol] 325 mg Tablet 650 mg PO Q4HR PRN (Reason: ELEVATED TEMPERATURE) acetaminophen [Tylenol] 325 mg Tablet 650 mg PO [id number] PRN (Reason: PAIN) ondansetron HCl 4 mg Tablet 4 mg PO Q6H PRN (Reason: NAUSEA/EMESIS) aspirin 81 mg Capsule,Delayed Release(Dr/Ec) 81 mg PO QDAY dextromethorphan-guaifenesin 10-100 mg/5 mL Syrup 10 ml PO Q4H PRN (Reason: Cough) ipratropium-albuterol 0.5 mg-3 mg(2.5 mg base)/3 mL Solution For Nebulization 3 ml INHALATION Q4H PRN (Reason: SOB or Wheezing) Referrals: Korina Howell MD [Primary Care Provider] - In 1 week Problem List Clinical Impression: Acute osteomyelitis of toe, Peripheral arterial disease Patient/Caregiver Discharge Instructions Print Language: Guatemalan Stand Alone Forms: [facility] Award Info., Patient Portal Info Letter
[2025-02-18 12:21] LABS: Alanine Aminotransferase < 7 U/L (10-49); Albumin, Serum 3.8 gm/dL (3.4-4.8); Albumin/Globulin Ratio 1.1 (1.2-2.2); Alkaline Phosphatase 92 U/L (46-116); Anion Gap 12 (7-16); Aspartate Amino Transferase < 8 U/L (0-34); BUN/Creatinine Ratio 21 Ratio (12-20); Bilirubin,Total 0.2 mg/dL (0.3-1.2); Blood Urea Nitrogen 23 mg/dL (9-23); C-Reactive Protein 11.6 mg/dL (0.0-0.9); Calcium 9.2 mg/dL (8.3-10.6); Calcium (Corrected) 9.4 mg/dL (8.5-10.1); Carbon Dioxide 27.5 mMol/L (20.0-31.0); Chloride 98 mMol/L (98-107); Creatinine (Component) 1.1 mg/dL (0.6-1.3); Estimated Creatinine Clearance 75.1 mL/min (>60); Globulin 3.6 gm/dL (2.3-3.5); Glucose 197 mg/dL (74-106); Osmolality,Calculated 282 (275-295); Potassium 4.4 mMol/L (3.4-5.1); Sodium 137 mMol/L (136-145); Total Protein 7.4 gm/dL (5.7-8.2); eGFR > 60 See Note
[2025-02-18 14:46] LABS: Reflex Lactate? Y
[2025-02-18 16:04] LABS: Lactic Acid, 3 HR 1.5 mMol/L (0.4-2.0)
--- NOTE | 2025-02-18 16:31 | XR_ITS ---
Examination: CTA left lower extremity with intravenous contrast 2-D reconstructions 3-D reconstructions, vascular Date and time of exam: February 19, 2025 1358 hours INDICATIONS: Nonhealing ulcers left foot this month CTDI: vol (mGy) 8.01 DLP: (mGycm) 577 Technique: Multiple axial CT images left lower extremity post intravenous ministration 100 cc [id number] 2-D sagittal and coronal reconstructions. 3-D angiographic renderings, 3-D volume renderings, 3D post processing, vascular maximum intensity projections obtained.. One or more of the following dose reduction techniques were used; automated exposure control, adjustment of the mA and/or KV according to patient size, use of iterative reconstruction technique. Findings: Left common femoral artery calcified but intact Left superficial femoral artery 50% stenosis in the midportion image 201 Opacification is very poor involving the distal arteries on this study 90% plus stenosis distal left superficial femoral artery at its junction with the popliteal artery Multiple proximal occlusions of the left anterior tibial posterior tibial artery with no significant filling of the main distal continuation trunk IMPRESSION: Contrast bolus timing error, severely reduced opacification of the arterial vessels 50% stenosis mid left superficial femoral artery 90% stenosis distal left superficial femoral artery at its junction with the popliteal artery Severe multiple short segment stenoses of the left anterior tibial and left posterior tibial arteries
[2025-02-18] MEDS: SODIUM CHLORIDE 0.9% 500 ML 500 ML 999 ML IV (18:28)
--- NOTE | 2025-02-18 19:57 | PC.NURSE ---
pt removed 20g iv. bleeding at site. pressure applied with a gauze. iv cath intact. cms intact.
--- NOTE | 2025-02-18 20:16 | PC.NURSE ---
[facility]
--- NOTE | 2025-02-18 20:18 | PC.NURSE ---
left foot dressing was saturated. dressing was removed and replaced.
--- NOTE | 2025-02-18 20:55 | PC.NURSE ---
[facility] CALLED , THERE IN [place] AT [facility] TIME, I CAN CALL THEM BACK IN 4 HOURS
--- NOTE | 2025-02-18 21:05 | PC.NURSE ---
FAXED INFORMATION TO [facility].
--- NOTE | 2025-02-18 23:32 | PC.NURSE ---
[facility] NO PODIATRY.
--- NOTE | 2025-02-18 23:46 | PC.NURSE ---
FAXED PT INFORMATION AND TALKED TO TRANSFER CENTER FROM [facility].
[2025-02-19] VITALS (7 sets, daily range): BP systolic 138–165; BP diastolic 58–79; PULSE 68–98; RESP 17–18; TEMP 36.4–37.4; O2SAT 94–96; BMI 23.3
--- NOTE | 2025-02-19 00:15 | PC.NURSE ---
PT HAD A BOWEL MOVEMENT AND WAS CLEANED AND DRESSED. SHEETS WERE CHANGED. FOOT DRESSING WAS CHANGED
--- NOTE | 2025-02-19 00:41 | ESHP_ITS ---
<Statement entered by James Lanza MD - 02/19/25 03:25> I have personally seen and examined the patient. I agree with the resident's assessment and plan as documented below. James Lanza DO PGY-2 Internal Medicine - GME Documentation for date of: 02/19/25 HPI History of Present Illness History of present illness: 74 year old male coming from a assisted living facility with history of CKD, T2DM, hyperlipidemia, depression, CVA, CAD who presents with a acute on chronic left foot wound. Patient is AOx3 but did not want to answer questions to the interview because he is nervous. He indicates that his left foot has been slowly getting worse over the last months and he was brought in by nursing staff. He was seen here in November and transferred to [facility] in [place], [place]. 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 Patient was seen by Dr. Court Pickett with vascular surgery and an angiogram was performed. Patient was found to have mild stenosis within the superficial femoral artery but was less than 40%. Popliteal artery was patent. Med hx: PAD, acute osteomyelitis of toe, CKD, T2DM, hyperlipidemia, depression, CVA, peripheral CAD Sx Hx:Right foot multiple toes amputation Allergies: NKA Medications:pending med rec Family Hx: Unable to obtain Soc Hx: Unable to obtain All 12 systems reviewed and found to be negative unless specified in the HPI ED Course: Patient's labs were obtained and he has a leukocytosis of 15.5 K, initial lactic acid is 3.1 -> 1.5. Numerous facilities were contacted regarding transfer to consider vascular or podiatry services without success. At approximately 23:45 PM, Dr Stein with general surgery was contacted. Dr. Stein states he is willing to see the patient in the morning to consider amputation. This was discussed with the patient who stated he understood that he would be evaluated in the morning by general surgery for possible amputation. Patient admitted for acute osteomyelitis of left foot, PAD Exam Vital Signs Temp Pulse Resp BP Pulse Ox O2 Del Method 98.4 F 71 18 165/65 H 99 Room Air 02/19/25 00:37 02/19/25 00:37 02/19/25 00:37 02/19/25 00:37 02/18/25 19:49 02/18/25 19:49 Narrative Exam GENERAL:?Agitated, not amenable to conversation. AOx3 HEENT: Normocephalic, atraumatic and nontender.? Pupils are equal and reactive to light and accommodation.? Oral mucosa are moist. NECK: Supple without adenopathy. Traquea midline. Nontender, carotid pulse 2+ bilaterally without bruits, no JVD.? CHEST: Heart rate and rythm normal, no murmurs, gallops auscultated. S1 & 2 normal insensity. Nontender on palpation, no deformity and no crepitus. LUNGS: Nasal cannula. Lung sounds are clear.? No wheezing, rales or ronchi.? No intercostal subcostal retraction. Room air ABDOMEN: Soft,symmetric , nontender, no guarding or rebound tenderness. No abnormal masses palpated.? No pulsatile masses or bruits.? Bowel sounds are normoactive in all 4 quadrants. No Mcclellan EXTREMITIES: Nontender.? No pitting edema.? No cyanosis.? Patient is able to move all 4 extremities sans decapitated right foot. Bilateral pedal and popliteal pulses felt. SKIN: No rashes noted. NEURO: Sensation intact in lower extremities. Wound Wound description lt. heel: Wound description: black eschar along lateral left foot, multiple ulcerating wounds on dorsum as well. Results: Labs 02/19/25 00:45 02/18/25 11:40 Labs: Short CBC 02/18/25 Range/Units 11:40 WBC 15.5 H (3.8-10.6) Thou/mm3 Hgb 9.0 L (13.5-16.0) g/dL Hct 28.7 L (41.0-53.0) % Plt Count 350 (140-440) Thou/mm3 BMP 02/18/25 11:40 Sodium 137 Potassium 4.4 Chloride 98 Carbon Dioxide 27.5 BUN 23 Creatinine 1.1 Glucose 197 H Calcium 9.2 Liver Function 02/18/25 Range/Units 11:40 Total Bilirubin 0.2 L (0.3-1.2) mg/dL AST < 8 (0-34) U/L ALT < 7 L (10-49) U/L Alkaline Phosphatase 92 (46-116) U/L Albumin 3.8 (3.4-4.8) gm/dL Quality Measures Quality Measures none Advance care planning discussed with:: other (pending SNF documents) Medications Home Medications and Allergies Home Medications ?Medication ?Instructions ?Recorded ?Confirmed ?Type aluminum-mag hydroxide-simethicone 20 ml PO [id number] NE N Heartburn 06/14/22 02/19/25 History 400 mg-400 mg-40 mg/5 mL oral susp (Mylanta Maximum Strength) cholecalciferol (vitamin D3) 25 25 mcg PO QDAY VIT D D EFICIENCY 06/14/22 02/19/25 History mcg (1,000 unit) tablet finasteride 5 mg tablet 5 mg PO QDAY 06/14/22 History labetalol 100 mg tablet 50 mg PO BID 06/14/22 History latanoprost 0.005 % eye drops 1 drp ophthalmic (eye) H S 06/14/22 02/19/25 History metformin 1,000 mg tablet 1,000 mg PO BID 06/14/22 History pantoprazole 40 mg tablet,delayed 40 mg PO TID 02/19/25 History release sertraline 50 mg tablet 50 mg PO QDAY 06/14/2202/19 History tamsulosin 0.4 mg capsule 0.8 mg PO QDAY 06/14/2201/29 History timolol maleate 0.25 % eye drops 1 drp ophthalmic (eye ) QDAY 06/14/22 02/19/25 History trazodone 50 mg tablet 50 mg PO QHSPRN PRN INABILIT Y TO 06/14/22 02/19/25 History REST/INSOMIA acetaminophen 325 mg tablet 650 mg PO Q4HR PRN ELEVATE D 07/19/23 02/19/25 History (Tylenol) TEMPERATURE atorvastatin 40 mg tablet 40 mg PO HS 07/19/23 5 History gabapentin 100 mg capsule 200 mg PO TID 07/19/2302/19 History insulin human U-100 NPH-regulr 15 unit subcut BID 07/0102/19/25 History 70-30 mix 100 unit/mL subcutaneous susp multivitamin with minerals 1 tab PO QDAY 07/19/2301/29 History (Multiple Vitamin-Minerals tablet) ondansetron HCl 4 mg tablet 4 mg PO Q6H PRN NAUSEA/JESUS SIS 07/19/23 02/19/25 History dextromethorphan-guaifenesin 10 10 ml PO Q4H PRN Cough 05/04/24 02/19/25 History mg-100 mg/5 mL oral syrup hydrocodone 5 mg-acetaminophen 325 1 tab PO Q4H PRN Se torey Pain 05/28/24 02/19/25 History mg tablet (Scale Score 7-10) lisinopril 40 mg tablet 40 mg PO QDAY 05/28/2402/19 History magnesium hydroxide 400 mg/5 mL 30 ml PO Q24H PRN Cons tipation 05/28/24 02/19/25 History oral suspension (Milk of Magnesia) triamcinolone acetonide 55 mcg 1 spray intranasal QDAY PRN 05/28/24 02/19/25 History nasal spray aerosol (Nasacort Allergy Symptoms Allergy) aspirin 81 mg tablet 81 mg PO QDAY 02/19/2502/19 History ferrous sulfate 325 mg (65 mg 325 mg PO QDAY 02/19/25 02/19/25 History iron) tablet (Feosol) sucralfate 1 gram tablet (Carafate) 1 g PO TID 5 02/19/25 History Allergies Allergy/AdvReac Type Severity Reaction Status Date / Time No Known Allergies Allergy Verified 12/22/24 17:45 Visit Medications Acetaminophen (Acetaminophen 325 Mg Tablet) 650 mg PO Q6H PRN PRN Reason: PAIN SCALE 1-3 (mild Stop: 03/21/25 00:20 Hydrocodone Bitart/Acetaminophen (Hydrocodone/Apap 5/325 Tablet) 1 tab PO Q4HR PRN PRN Reason: PAIN SCALE 4-6 (Moderate Stop: 02/24/25 00:31 Dextrose (Dextrose 50%-Water Inj 50 Ml Syringe) 25 ml IV Q15MIN PRN PRN Reason: BG 50-70 responsive npo pt Stop: 03/21/25 00:31 Dextrose (Dextrose 50%-Water Inj 50 Ml Syringe) 50 ml IV Q15MIN PRN PRN Reason: BG <50 OR BG <70 & pt unresponsive Stop: 03/21/25 00:31 Glucagon (Glucagon Inj 1 Mg Vial) 1 mg IM Q15MIN PRN PRN Reason: BG <70, and no IV access Heparin Sodium (Porcine) (Heparin Sod Inj 5000 Unit/Ml Vial) 5,000 unit SC Q12HR [facility] Stop: 03/05/25 08:59 Lactated Ringer's (Lactated Ringers) 1,000 mls @ 75 mls/hr IV .[id number] [facility] Stop: 03/21/25 00:29 Ceftriaxone Sodium 2 gm/ (Sodium Chloride) 50 mls @ 100 mls/hr IV QDAY [facility] Stop: 02/26/25 00:37 Insulin Human Lispro (Insulin Lispro (Admelog) 1 Unit/0.01 Ml Unit) 0 unit SC Q6H BRADEN; Protocol Stop: 03/21/25 00:44 Morphine Sulfate (Morphine Sulf Inj 10 Mg/Ml Vial) 1 mg IVP Q6H PRN PRN Reason: PAIN SCALE 7-10 (Severe Stop: 02/24/25 00:31 Ondansetron HCl (Ondansetron Inj 2 Mg/Ml Inj 2 Ml) 4 mg IVP Q6H PRN; Protocol PRN Reason: NAUSEA OR VOMITING Stop: 03/21/25 00:20 Pharmacy Consult (Vancomycin Pharmacy To Dose 1 Each Each) 1 each IV QDAY [facility] Stop: 03/21/25 08:59 Sennosides (Senna Tablet) 1 tab PO QDAY PRN; Protocol PRN Reason: constipation Stop: 03/21/25 00:20 Tamsulosin HCl (Tamsulosin Hcl 0.4 Mg Capsule) 0.4 mg PO QDAY [facility] Stop: 03/21/25 08:59 Discontinued Medications Cefazolin Sodium/Dextrose (Ancef Ivpb) 1 gm in 50 mls @ 100 mls/hr IV X1 ONE Stop: 02/18/25 11:58 Last Infusion: 02/18/25 12:14 Dose: Infused Sodium Chloride (Ns) 500 mls @ 999 mls/hr IV .Q31M ONE Stop: 02/18/25 18:25 Last Infusion: 02/18/25 18:59 Dose: Infused Lidocaine HCl (Lidocaine Hcl 1% 20 Ml Vial) 20 ml INFL X1 ONE Stop: 02/18/25 12:39 Assessment & Plan Plan 74 year old male coming from a assisted living facility with history of CKD, T2DM, hyperlipidemia, depression, CVA, peripheral CAD who presents with a acute on chronic left foot wound. Left foot has weeping non-healing ulcerations on the dorsum of the foot with black eschar spanning the entire lateral foot from heel to pinkie toe. #Left foot osteomyelitis #Left foot gangrene Surgery consulted, plan for left foot amputation tomorrow per Dr. Stein. Ceftriaxone 2g IV Vancomyocin 1g IV NPO #Diabetes Hold metformin Sliding scale insulin #Hypertension #Hyperlipidemia Hold home meds for chornic conditions until after surgery Health maintenance Lines: PIV Diet: NPO Bowel: Senna GI Prophylaxis: Zofran DVT Prophylaxis: Heparin (hold for surgery) Disposition: Left foot osteomyelitis per surgery rec left foot amputation in the morning COde; Full code Patient seen and evaluated with Dr. Donaldson and Dr. Lanza. Note written by Uziel Almodovar PGY-1 Attending Provider Attestation/Addendum I attest that I was physically present for the evaluation, physical examination, lab and imaging review of the patient with the residents. I discussed the case with the residents and agree with the findings and plans of care as documented above. Patient is a 74 years old male with past medical history of CKD, diabetes mellitus, hyperlipidemia, depression, CVA, CAD who presented to the ED with complaint of left foot wound. Patient has a chronic left foot and which has been getting worse and has become discolored. In the ED, he was found to have leukocytosis, elevated lactic acid. Foot x-ray shows osteomyelitis of fifth metatarsal and proximal phalanx of fifth digit. Lower extremity CTA was obtained, showed 70% stenosis of distal right superficial femoral artery and several multiple occlusion of right anterior tibial posterior tibial and main continuation trunk. Attempts were made to transfer the patient to [facility] for vascular surgery/podiatry service. General surgery was later contacted by ED, patient will be evaluated in the morning for possible need of amputation. We will admit the patient for management of left foot gangrene and osteomyelitis. We will start him on broad-spectrum IV antibiotics with Rocephin IV vancomycin. Cultures are obtained. We will keep patient n.p.o. for possible procedure tomorrow. Started on sliding scale for diabetes. Analgesics regimen on board. Carroll Donaldson MD
[2025-02-19 00:58] LABS: Platelet Count 278 Thou/mm3 (140-440)
[2025-02-19] MEDS: cefTRIAXone 2 GM in SODIUM CHLORIDE 0.9% (Popper) 50 ML IV (01:25)
[2025-02-19] MEDS: RINGERS LACTATED 1000 ML 1,000 ML 75 ML IV ×2 (01:25→21:47)
[2025-02-19] MEDS: INSULIN LISPRO (AdmeLOG) 1 UNIT/0.01 ML UNIT SC (01:26)
--- NOTE | 2025-02-19 01:45 | PC.NURSE ---
REPORT WAS GIVEN TO MICHALEA ORTIZ. MICHAELA REQUESTED TO PULL DUGLASO BECAUSE THEY DONT HAVE IT UP ON THE UNIT
[2025-02-19] MEDS: VANCOMYCIN/NS 1 GM IVPB 200 ML IV ×2 (02:19→04:14)
[2025-02-19 06:12] LABS: Collection Type, Urine Clean Catch
[2025-02-19 06:36] LABS: Bilirubin,Urine Negative (Negative); Blood,Urine Negative (Negative); Clarity,Urine Clear (Clear/Hazy); Color,Urine Yellow (Lt Yel-Yel); Glucose, Urine Negative (Negative); Hyaline Casts,Urine < 1 /hpf (0-1); Ketones,Urine Negative (Negative); Leukocyte Esterase,Urine Negative (Negative); Nitrite,Urine Negative (Negative); PH,Urine 5.5 (5.0-7.0); Protein,Urine 1+ (Neg - Trace); RBC,Urine 2 /hpf (0-3); Specific Gravity,Urine 1.041 (1.001-1.035); Squamous Epithelial Cell,Urine < 1 /hpf (0-5); Urobilinogen,Urine Negative mg/dL (0.0-1.0); WBC,Urine 5 /hpf (0-5)
[2025-02-19 06:44] LABS: Glucose Estimated Average 163 mg/dL (80-131); Hemoglobin A1C 7.3 % Hgb (4.8-6.0)
[2025-02-19 06:48] LABS: Anion Gap 10 (7-16); BUN/Creatinine Ratio 20 Ratio (12-20); Blood Urea Nitrogen 20 mg/dL (9-23); Calcium 8.7 mg/dL (8.3-10.6); Carbon Dioxide 25.7 mMol/L (20.0-31.0); Chloride 102 mMol/L (98-107); Creatinine (Component) 1.0 mg/dL (0.6-1.3); Estimated Creatinine Clearance 72.1 mL/min (>60); Glucose 141 mg/dL (74-106); Osmolality,Calculated 280 (275-295); Phosphorous 3.2 mg/dL (2.4-5.1); Potassium 4.0 mMol/L (3.4-5.1); Sodium 138 mMol/L (136-145); eGFR > 60 See Note
[2025-02-19 06:50] LABS: Magnesium 0.9 mg/dL (1.6-2.6)
--- NOTE | 2025-02-19 08:15 | PD.SURCONS ---
HPI Consult details Consult date: 02/19/25 Reason for consultation narrative: Left foot gangrene and osteomyelitis History of present illness: 74 year old male with history of CKD, T2DM, hyperlipidemia, depression, CVA with left-sided hemiparesis, CAD was admitted with left foot pain. Patient is alert and awake but does not want to answer questions. He indicates that his left foot has been slowly getting worse over the last months and he was brought in by nursing staff. According to the H&P he was seen here in November, CT revealed severe obstructive PAD and transferred to [facility]. 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 Patient was seen by Dr. Court Pickett with vascular surgery and an angiogram was performed. Patient was found to have mild stenosis within the superficial femoral artery but was less than 40%. Popliteal artery was patent. Upon presentation x-ray of the left foot revealed osteomyelitis, however CTA was performed on his right lower extremity. Review of Systems Review of Systems ROS Unobtainable: unobtainable due to mental status Past Medical History Surgical History OTHER SURGICAL HX: Right forefoot amputation Meds Home Medications and Allergies Home Medications ?Medication ?Instructions ?Recorded ?Confirmed ?Type aluminum-mag hydroxide-simethicone 20 ml PO [id number] PRN Heartburn 06/14/22 02/19/25 History 400 mg-400 mg-40 mg/5 mL oral susp (Mylanta Maximum Strength) cholecalciferol (vitamin D3) 25 25 mcg PO QDAY VIT D DEFICIENCY 06/14/22 02/19/25 History mcg (1,000 unit) tablet finasteride 5 mg tablet 5 mg PO QDAY 06/14/22 02/19/25 History labetalol 100 mg tablet 50 mg PO BID 06/14/22 02/19/25 History latanoprost 0.005 % eye drops 1 drp ophthalmic (eye) HS 06/14/22 02/19/25 History metformin 1,000 mg tablet 1,000 mg PO BID 06/14/22 02/19/25 History pantoprazole 40 mg tablet,delayed 40 mg PO TID 06/14/22 02/19/25 History release sertraline 50 mg tablet 50 mg PO QDAY 06/14/22 02/19/25 History tamsulosin 0.4 mg capsule 0.8 mg PO QDAY 06/14/22 02/19/25 History timolol maleate 0.25 % eye drops 1 drp ophthalmic (eye) QDAY 06/14/22 02/19/25 History trazodone 50 mg tablet 50 mg PO QHSPRN PRN INABILITY TO 06/14/22 02/19/25 History REST/INSOMIA acetaminophen 325 mg tablet 650 mg PO Q4HR PRN ELEVATED 07/19/23 02/19/25 History (Tylenol) TEMPERATURE atorvastatin 40 mg tablet 40 mg PO HS 07/19/23 02/19/25 History gabapentin 100 mg capsule 200 mg PO TID 07/19/23 02/19/25 History insulin human U-100 NPH-regulr 15 unit subcut BID 07/19/23 02/19/25 History 70-30 mix 100 unit/mL subcutaneous susp multivitamin with minerals 1 tab PO QDAY 07/19/23 02/19/25 History (Multiple Vitamin-Minerals tablet) ondansetron HCl 4 mg tablet 4 mg PO Q6H PRN NAUSEA/EMESIS 07/19/23 02/19/25 History dextromethorphan-guaifenesin 10 10 ml PO Q4H PRN Cough 05/04/24 02/19/25 History mg-100 mg/5 mL oral syrup hydrocodone 5 mg-acetaminophen 325 1 tab PO Q4H PRN Severe Pain 05/28/24 02/19/25 History mg tablet (Scale Score 7-10) lisinopril 40 mg tablet 40 mg PO QDAY 05/28/24 02/19/25 History magnesium hydroxide 400 mg/5 mL 30 ml PO Q24H PRN Constipation 05/28/24 02/19/25 History oral suspension (Milk of Magnesia) triamcinolone acetonide 55 mcg 1 spray intranasal QDAY PRN 05/28/24 02/19/25 History nasal spray aerosol (Nasacort Allergy Symptoms Allergy) aspirin 81 mg tablet 81 mg PO QDAY 02/19/25 02/19/25 History ferrous sulfate 325 mg (65 mg 325 mg PO QDAY 02/19/25 02/19/25 History iron) tablet (Feosol) sucralfate 1 gram tablet (Carafate) 1 g PO TID 02/19/25 02/19/25 History Allergies Allergy/AdvReac Type Severity Reaction Status Date / Time No Known Allergies Allergy Verified 12/22/24 17:45 Exam Vital Signs Temp Pulse Resp BP Pulse Ox O2 Del Method 98.1 F 80 17 138/70 H 94 L Room Air 02/19/25 08:00 02/19/25 08:00 02/19/25 08:00 02/19/25 08:00 02/19/25 08:00 02/19/25 08:00 Constitutional Constitutional: no acute distress Routine Extremities Exam Comments: He has right forefoot amputation that is healed well. He has open wounds on the dorsal aspect of the left foot with visible tendons and gangrene of the lateral aspect of the left foot. He does not have palpable dorsalis pedis or posterior tibial pulses Assessment & Plan Problem List (1) Atherosclerosis of left lower extremity with gangrene: Status: Acute Plan Patient will require left below the knee amputation. However, he is not sure at this time whether he wants to proceed and he like to think about it. If he decides to proceed with the operation, I will be able to perform his surgery tomorrow. (1) Atherosclerosis of left lower extremity with gangrene Qualifiers: Peripheral atherosclerosis artery type: [place] artery Qualified Code(s): I70.262 - Atherosclerosis of [place] arteries of extremities with gangrene, left leg
--- NOTE | 2025-02-19 10:36 | PC.SS ---
PUBLIC RELATIONS STUDIES DIRECTOR attempted phone call to pt. penelope Kelley but did not answer, PUBLIC RELATIONS STUDIES DIRECTOR left voicemail.
--- NOTE | 2025-02-19 10:43 | PC.NURSE ---
call to pharmacy, there is no more Magnesium 4 gms on the floor
[2025-02-19] MEDS: HEPARIN SOD INJ 5000 UNIT/ML VIAL SC (10:58)
[2025-02-19] MEDS: TAMSULOSIN HCL 0.4 MG CAPSULE PO (10:58)
[2025-02-19] MEDS: CEFEPIME INJ 2 GM in SODIUM CHLORIDE 0.9% (Popper) 50 ML IV ×3 (10:58→21:39)
[2025-02-19 11:36] LABS: Basophils # (Auto) 0.0 Thou/mm3 (0.0-0.2); Basophils % (Auto) 0 % (0-2.5); Eosinophils # (Auto) 1.3 Thou/mm3 (0.0-0.5); Eosinophils % (Auto) 11 % (0-10); Hematocrit 27.0 % (41.0-53.0); Immature Granulocytes Auto 0.05 Thou/mm3 (0.00-0.00); Lymphocytes # (Auto) 1.4 Thou/mm3 (1.0-4.8); Lymphocytes % (Auto) 12 % (10-50); Mean Corpuscular HGB Conc 30.7 g/dl (31.0-37.0); Mean Corpuscular Hemoglobin 24.7 pg (25.0-35.0); Mean Corpuscular Volume 80 fL (80-100); Monocytes # (Auto) 0.9 Thou/mm3 (0.0-0.8); Monocytes % (Auto) 7 % (0-12); Neutrophils # (Auto) 8.5 Thou/mm3 (1.8-7.7); Neutrophils % (Auto) 70 % (37-80); Nucleated Red Blood Cell # 0.00 Thou/mm3 (0.00-0.00); Nucleated Red Blood Cell % 0 /100 WBC (0); Platelet Count 297 Thou/mm3 (140-440); RDW Standard Deviation 45.6 fL (35.1-43.9); Red Blood Count 3.36 Miln/mm3 (4.50-5.90); White Blood Count 12.1 Thou/mm3 (3.8-10.6)
[2025-02-19 11:37] LABS: Hemoglobin 8.3 g/dL (13.5-16.0)
--- NOTE | 2025-02-19 11:52 | PC.SS ---
Addendum entered by LANCE Borden 02/24/25 10:35: Pt. has been at [facility] since April 2024 per [facility] staff. Original Note: Patient is 74 year old male presenting to the hospital from [facility] for Necrotic left foot. SAS ADMINISTRATOR made contact with patient at bedside, pt. was not alert and oriented. SAS ADMINISTRATOR spoke to [facility] to confirm demographics. Pt. has been at [facility] since April 2025. Pt. is not able to ambulate dependently and required Riky lift and wheelchair. Next of kin is Warren Álvarez ph:[phone]. Pt. PCP is Dr. Howell. Next of Kin: Warren Álvarez [phone] PCP: DR. Howell d/c: [facility]
[2025-02-19] MEDS: Magnesium Sulfate 4 GM Ivpb 4 GM/50 ML BAG IV (15:16)
--- NOTE | 2025-02-19 15:39 | PC.SS ---
Rounding note: Pt. is still deciding on surgery, pt. pending another scan on leg.
--- NOTE | 2025-02-19 20:54 | ESPR_ITS ---
<Statement entered by Lisandro Vasquez MD - 02/20/25 14:49> I have reviewed the note and agree with the resident's assessment & plan with exceptions as below. I have personally reviewed labs, imaging, home meds/prior records, examined the patient, formulated and discussed management plan with the IM team. Patient examined at bedside today. Patient reports that he is still making up his decision if he wants to get below the knee amputation as it was recommended by the general surgeon, Dr Stein. Patient's initial wound culture shows GNR, will continue with broad-spectrum antibiotics including cefepime IV 2 g every 8 hours, and pharmacy to dose IV vancomycin as patient did have MRSA screen positive. Will wait on further decision and will follow-up with cultures. Continue analgesia and IV antibiotics. Repeat hematology and chemistry in the a.m. Surgery on consult, appreciate recommendations. Lisandro Vasquez, PGY-2 Internal Medicine Documentation for date of: 02/19/25 Subjective Subjective Interval history: After discussion of his condition and the risks and benefits of performing a below-knee amputation of the left lower extremity as indicated in the setting of marked necrosis and osteomyelitis, patient consents to amputation. Patient states that he doesn't feel much in his lower legs and doesnt feel any pain in his left foot. Exam Vital Signs Temp Pulse Resp BP Pulse Ox O2 Del Method 98.5 F 98 18 141/58 H 96 Room Air 02/19/25 16:00 02/19/25 16:00 02/19/25 16:00 02/19/25 16:00 02/19/25 16:02/19/25 16:00 Narrative Exam Narrative Exam GENERAL:?Agitated, not amenable to conversation. AOx3 HEENT: Normocephalic, atraumatic and nontender.? Pupils are equal and reactive to light and accommodation.? Oral mucosa are moist. NECK: Supple without adenopathy. Traquea midline. Nontender, carotid pulse 2+ bilaterally without bruits, no JVD.? CHEST: Heart rate and rythm normal, no murmurs, gallops auscultated. S1 & 2 normal insensity. Nontender on palpation, no deformity and no crepitus. LUNGS: Nasal cannula. Lung sounds are clear.? No wheezing, rales or ronchi.? No intercostal subcostal retraction. Room air ABDOMEN: Soft,symmetric , nontender, no guarding or rebound tenderness. No abnormal masses palpated.? No pulsatile masses or bruits.? Bowel sounds are normoactive in all 4 quadrants. No Mcclellan EXTREMITIES: Rt toes amputated. Black eschar on the lateral edge of Lt foot and weeping ulcer on the dorsum of the foot. Nontender.? No pitting edema.? No cyanosis.? Patient is able to move all 4 extremities. Bilateral pedal and popliteal pulses felt. SKIN: No rashes noted. NEURO: Sensation intact in lower extremities. Objective Labs 02/20/25 04:39 02/20/25 04:39 Labs: Laboratory Results - last 24 hr 02/19/25 02/19/25 02/19/25 00:45 04:20 05:40 WBC 12.1 H RBC 3.36 L Hgb 8.3 L Hct 27.0 L MCV 80 MCH 24.7 L MCHC 30.7 L RDW Std Deviation 45.6 H Plt Count 278 D 297 Neut % (Auto) 70 Lymph % (Auto) 12 Wilkin % (Auto) 7 Eos % (Auto) 11 H Baso % (Auto) 0 Neut # (Auto) 8.5 H Lymph # (Auto) 1.4 Wilkin # (Auto) 0.9 H Eos # (Auto) 1.3 H Baso # (Auto) 0.0 Immature Gran # (Auto) 0.05 H Absolute Nucleated RBC 0.00 Immature Gran % 0 Nucleated RBC % 0 Sodium 138 Potassium 4.0 Chloride 102 Carbon Dioxide 25.7 Anion Gap 10 BUN 20 Creatinine 1.0 Estim Creat Clear Calc 72.1 eGFR > 60 BUN/Creatinine Ratio 20 Glucose [address] Glu mg/dL 163 H Hemoglobin A1c 7.3 H Calculated Osmolality 280 Calcium 8.7 Phosphorus 3.2 Magnesium 0.9 L* Ur Collection Type Clean Catch Urine Color Yellow Urine Clarity Clear Urine pH 5.5 Ur Specific [place] 1.041 H Urine Protein 1+ A Urine Glucose (UA) Negative Urine Ketones Negative Urine Blood Negative Urine Nitrite Negative Urine Bilirubin Negative Urine Urobilinogen (Auto) Negative Ur Leukocyte Esterase Negative Urine RBC 2 Urine WBC 5 Ur Squamous Epith Cells < 1 Urine Bacteria None Hyaline Casts < 1 Quality Measures Quality Measures none Advance care planning discussed with:: patient Assessment & Plan Assessment Current Active Medications: Generic Name Dose Route Start Last Admin Trade Name Harvey PRN Reason Stop Dose Admin Acetaminophen 650 mg 02/19/25 00:21 Acetaminophen 325 Mg Tablet PO 03/21/25 00:20 Q6H PRN PAIN SCALE 1-3 (mild Hydrocodone Bitart/Acetaminophen 1 tab 02/19/25 00:32 Hydrocodone/Apap 5/325 Tablet PO 02/24/25 00:31 Q4HR PRN PAIN SCALE 4-6 (Moderate Dextrose 25 ml 02/19/25 00:32 Dextrose 50%-Water Inj 50 Ml Syringe IV 03/21/25 00:31 Q15MIN PRN BG 50-70 responsive npo pt Dextrose 50 ml 02/19/25 00:32 Dextrose 50%-Water Inj 50 Ml Syringe IV 03/21/25 00:31 Q15MIN PRN BG <50 OR BG <70 & pt unresponsive Glucagon 1 mg 02/19/25 00:32 Glucagon Inj 1 Mg Vial IM Q15MIN PRN BG <70, and no IV access Heparin Sodium (Porcine) 5,000 unit 02/19/25 09:00 02/19/25 10:58 Heparin Sod Inj 5000 Unit/Ml Vial SC 03/05/25 08:59 5,000 unit Q12HR BRADEN Administration Lactated Ringer's 1,000 mls @ 75 mls/hr 02/19/25 00:30 02/19/25 01:25 Lactated Ringers IV 03/21/25 00:29 75 mls/hr .[id number] BRADEN Administration Vancomycin HCl 200 mls @ 120 mls/hr 02/19/25 22:00 Vancomycin/Water 1gm Ivpb IV 02/26/25 21:59 BID@1000,2200 BRADEN Cefepime HCl 2 gm/ Sodium 50 mls @ 100 mls/hr 02/19/25 10:40 02/19/25 15:43 Chloride IV 02/26/25 10:39 100 mls/hr Q8HR BRADEN Administration Insulin Human Lispro 0 unit 02/19/25 00:45 02/19/25 19:27 Insulin Lispro (Admelog) 1 Unit/0.01 Ml Unit SC 03/21/25 00:44 Not Given Q6H [facility] Protocol Morphine Sulfate 1 mg 02/19/25 00:32 Morphine Sulf Inj 10 Mg/Ml Vial IVP 02/24/25 00:31 Q6H PRN PAIN SCALE 7-10 (Severe Ondansetron HCl 4 mg 02/19/25 00:21 Ondansetron Inj 2 Mg/Ml Inj 2 Ml IVP 03/21/25 00:20 Q6H PRN NAUSEA OR VOMITING Protocol Pharmacy Consult 1 each 02/19/25 09:00 Vancomycin Pharmacy To Dose 1 Each Each IV 03/21/25 08:59 QDAY PRN CONSULT Sennosides 1 tab 02/19/25 00:21 Senna Tablet PO 03/21/25 00:20 QDAY PRN constipation Protocol Tamsulosin HCl 0.4 mg 02/19/25 09:00 02/19/25 10:58 Tamsulosin Hcl 0.4 Mg Capsule PO 03/21/25 08:59 0.4 mg QDAY BRADEN Administration Plan 74 year old male coming from a assisted living facility with history of CKD, T2DM, hyperlipidemia, depression, CVA, peripheral CAD who presents with a acute on chronic left foot wound. Left foot has weeping non-healing ulcerations on the dorsum of the foot with black eschar spanning the entire lateral foot from heel to pinkie toe. #Left foot osteomyelitis #Left foot gangrene Wound ctx positive for gram negative rods in 2/2 samples. Surgery consulted, plan for left foot amputation tomorrow per Dr. Stein. Patient consented to the operation. Cefepime IV 2g Q8h Vancomyocin 1g IV NPO #Diabetes Hold metformin Sliding scale insulin #Hypertension #Hyperlipidemia Hold home meds for chornic conditions until after surgery Health maintenance Lines: PIV Diet: NPO Bowel: Senna GI Prophylaxis: Zofran DVT Prophylaxis: Heparin (hold for surgery) Disposition: Left foot osteomyelitis per surgery rec left foot amputation in the morning Code status: Full code This case was discussed with my attending physician, Dr. Jones, and senior resident Dr Vasquez. Kathleen Wilson DO PGY I Attending Provider Attestation/Addendum I have discussed and was present for the essential components of the history, physical examination, diagnosis, and treatment plan with the resident. I agree with the patient's care as documented by the resident and amended herein by me. Omid Jones DO. Although this document has been carefully reviewed, there may still be some phonetic and other typographical errors. These errors are purely grammatical due to imperfections in the software program and should not be construed in any way to compromise the substance of the patient's medical care during this visit. Patient seen and evaluated this AM. No acute events overnight, vital signs stable, patient afebrile, significant labs included WBC of 15, hemoglobin of 9. The patient's foot wound is malodorous from gangrene. Patient was still undecided in the a.m. about whether he wanted surgery or not which would entail a left BKA however in the afternoon I did revisit the conversation with the patient and let him know the risks of not having the surgery performed and he agreed to have the BKA done at that time. Will let Dr. Stein and continue broad-spectrum antibiotics to include vancomycin and cefepime at this time.
[2025-02-19] MEDS: VANCOMYCIN/WATER 1GM IVPB 200 ML IV (21:45)
--- NOTE | 2025-02-19 23:34 | XR_ITS ---
Examination: Arterial duplex lower extremity study. Date and time of exam: February 19, 2025 1233 hours INDICATIONS: Nonhealing wounds left foot several months no pulse in the left foot today Findings: Duplex sonographic imaging of the lower extremity arteries using B-mode/Garg scale imaging and Doppler spectral analysis and color flow. Ankle brachial indices have been recorded. Right common femoral artery demonstrates triphasic flow. Right superficial femoral artery demonstrates biphasic flow. Right popliteal artery demonstrates triphasic flow. Right posterior tibial artery demonstrated monophasic flow. Right ankle/brachial index is 0.6. Left common femoral artery demonstrates triphasic flow. Left superficial femoral artery demonstrates monophasic flow. Left popliteal artery demonstrates monophasic flow. Left posterior tibial artery demonstrated monophasic flow. Left ankle/brachial index is 0.4. Impression: Severe bilateral peripheral obstructive arterial disease
[2025-02-20] VITALS (14 sets, daily range): BP systolic 110–165; BP diastolic 49–89; PULSE 54–107; RESP 11–98; TEMP 36.3–37.2; O2SAT 94–100
[2025-02-20 05:42] LABS: INR 1.2 (0.9-1.3); Partial Thromboplastin Time 34.6 Seconds (22.0-36.0); Prothrombin Time 12.5 Seconds (9.0-12.2)
[2025-02-20 05:43] LABS: Basophils # (Auto) 0.0 Thou/mm3 (0.0-0.2); Basophils % (Auto) 0 % (0-2.5); Eosinophils # (Auto) 0.9 Thou/mm3 (0.0-0.5); Eosinophils % (Auto) 11 % (0-10); Hematocrit 25.9 % (41.0-53.0); Immature Granulocytes Auto 0.04 Thou/mm3 (0.00-0.00); Lymphocytes # (Auto) 0.8 Thou/mm3 (1.0-4.8); Lymphocytes % (Auto) 10 % (10-50); Mean Corpuscular HGB Conc 32.4 g/dl (31.0-37.0); Mean Corpuscular Hemoglobin 25.1 pg (25.0-35.0); Mean Corpuscular Volume 78 fL (80-100); Monocytes # (Auto) 0.8 Thou/mm3 (0.0-0.8); Monocytes % (Auto) 9 % (0-12); Neutrophils # (Auto) 5.9 Thou/mm3 (1.8-7.7); Neutrophils % (Auto) 70 % (37-80); Nucleated Red Blood Cell # 0.00 Thou/mm3 (0.00-0.00); Nucleated Red Blood Cell % 0 /100 WBC (0); Platelet Count 309 Thou/mm3 (140-440); RDW Standard Deviation 42.6 fL (35.1-43.9); Red Blood Count 3.34 Miln/mm3 (4.50-5.90); White Blood Count 8.5 Thou/mm3 (3.8-10.6)
[2025-02-20] MEDS: CEFEPIME INJ 2 GM in SODIUM CHLORIDE 0.9% (Popper) 50 ML IV ×3 (05:46→22:01)
[2025-02-20 05:52] LABS: Hemoglobin 8.4 g/dL (13.5-16.0)
--- NOTE | 2025-02-20 06:02 | ESPR_ITS ---
<Statement entered by Juan José Katz MD - 02/20/25 20:44> In summary: No history of CKD, T2DM, HLD, depression, CVA, CAD, PAD/with stent of femoral artery admitted for chronic left foot wound finding of osteomyelitis and gangrene requiring BKA with general surgery. Continue on ANTIBIOTICS. I?ve reviewed the note and agree with the resident's assessment and plan, with the exceptions outlined above. I personally went over the labs, imaging, home medications, and prior records, and examined the patient. The case was also reviewed with the attending physician. Please note: this document was transcribed using voice recognition technology; minor inaccuracies may be present. Juan José Katz DO PGY II Documentation for date of: 02/20/25 Subjective Subjective Interval history: Patient was seen and examined at bedside. No acute events took place overnight. He is states that he has diminished sensation in his lower legs and does not feel the wounds on his left foot. Patient is consenting to BKA as recommended by surgeon. He is n.p.o. and on anticipation of the surgery later today. Exam Vital Signs Temp Pulse Resp BP Pulse Ox O2 Del Method 98.3 F 81 18 145/89 H 98 Room Air 02/20/25 04:00 02/20/25 04:00 02/20/25 04:00 02/20/25 04:00 02/20/25 04:00 02/20/25 04:00 Narrative Exam Narrative Exam GENERAL:?Agitated, not amenable to conversation. AOx3 HEENT: Normocephalic, atraumatic and nontender.? Pupils are equal and reactive to light and accommodation.? Oral mucosa are moist. NECK: Supple without adenopathy. Traquea midline. Nontender, carotid pulse 2+ bilaterally without bruits, no JVD.? CHEST: Heart rate and rythm normal, no murmurs, gallops auscultated. S1 & 2 normal insensity. Nontender on palpation, no deformity and no crepitus. LUNGS: Nasal cannula. Lung sounds are clear.? No wheezing, rales or ronchi.? No intercostal subcostal retraction. Room air ABDOMEN: Soft,symmetric , nontender, no guarding or rebound tenderness. No abnormal masses palpated.? No pulsatile masses or bruits.? Bowel sounds are normoactive in all 4 quadrants. No Mcclellan EXTREMITIES: Rt forefoot amputated. Gangrene of the lateral aspect of Lt foot and weeping ulcer on the dorsum of the foot with visible tendons. Nontender.? No pitting edema.? No cyanosis.? Patient is able to move all 4 extremities. He does not have palpable dorsalis pedis or posterior tibial pulses SKIN: No rashes noted. NEURO: Sensation intact in lower extremities. Objective Labs 02/20/25 04:39 02/20/25 04:39 Labs: Laboratory Results - last 24 hr 02/19/25 02/19/25 02/20/25 04:20 05:40 04:39 WBC 12.1 H 8.5 RBC 3.36 L 3.34 L Hgb 8.3 L 8.4 L Hct 27.0 L 25.9 L MCV 80 78 L MCH 24.7 L 25.1 MCHC 30.7 L 32.4 RDW Std Deviation 45.6 H 42.6 Plt Count 297 309 Neut % (Auto) 70 70 Lymph % (Auto) 12 10 [place] % (Auto) 7 9 Eos % (Auto) 11 H 11 H Baso % (Auto) 0 0 Neut # (Auto) 8.5 H 5.9 Lymph # (Auto) 1.4 0.8 L [place] # (Auto) 0.9 H 0.8 Eos # (Auto) 1.3 H 0.9 H Baso # (Auto) 0.0 0.0 Immature Gran # (Auto) 0.05 H 0.04 H Absolute Nucleated RBC 0.00 0.00 Immature Gran % 0 1 H Nucleated RBC % 0 0 PT 12.5 H INR 1.2 APTT 34.6 Sodium 138 Potassium 4.0 Chloride 102 Carbon Dioxide 25.7 Anion Gap 10 BUN 20 Creatinine 1.0 Estim Creat Clear Calc 72.1 eGFR > 60 BUN/Creatinine Ratio 20 Glucose [address] Glu mg/dL 163 H Hemoglobin A1c 7.3 H Calculated Osmolality 280 Calcium 8.7 Phosphorus 3.2 Magnesium 0.9 L* Ur Collection Type Clean Catch Urine Color Yellow Urine Clarity Clear Urine pH 5.5 Ur Specific [place] 1.041 H Urine Protein 1+ A Urine Glucose (UA) Negative Urine Ketones Negative Urine Blood Negative Urine Nitrite Negative Urine Bilirubin Negative Urine Urobilinogen (Auto) Negative Ur Leukocyte Esterase Negative Urine RBC 2 Urine WBC 5 Ur Squamous Epith Cells < 1 Urine Bacteria None Hyaline Casts < 1 Quality Measures Quality Measures none Advance care planning discussed with:: patient Assessment & Plan Assessment Current Active Medications: Generic Name Dose Route Start Last Admin Trade Name Freq PRN Reason Stop Dose Admin Acetaminophen 650 mg 02/19/25 00:21 Acetaminophen 325 Mg Tablet PO 03/21/25 00:20 Q6H PRN PAIN SCALE 1-3 (mild Hydrocodone Bitart/Acetaminophen 1 tab 02/19/25 00:32 Hydrocodone/Apap 5/325 Tablet PO 02/24/25 00:31 Q4HR PRN PAIN SCALE 4-6 (Moderate Dextrose 25 ml 02/19/25 00:32 Dextrose 50%-Water Inj 50 Ml Syringe IV 03/21/25 00:31 Q15MIN PRN BG 50-70 responsive npo pt Dextrose 50 ml 02/19/25 00:32 Dextrose 50%-Water Inj 50 Ml Syringe IV 03/21/25 00:31 Q15MIN PRN BG <50 OR BG <70 & pt unresponsive Glucagon 1 mg 02/19/25 00:32 Glucagon Inj 1 Mg Vial IM Q15MIN PRN BG <70, and no IV access Heparin Sodium (Porcine) 5,000 unit 02/19/25 09:00 02/19/25 10:58 Heparin Sod Inj 5000 Unit/Ml Vial SC 03/05/25 08:59 5,000 unit Q12HR BRADEN Administration Lactated Ringer's 1,000 mls @ 75 mls/hr 02/19/25 00:30 02/19/25 21:47 Lactated Ringers IV 03/21/25 00:29 75 mls/hr .[id number] BRADEN Administration Vancomycin HCl 200 mls @ 120 mls/hr 02/19/25 22:00 02/19/25 21:45 Vancomycin/Water 1gm Ivpb IV 02/26/25 21:59 120 mls/hr BID@1000,2200 BRADEN Administration Cefepime HCl 2 gm/ Sodium 50 mls @ 100 mls/hr 02/19/25 10:40 02/20/25 05:46 Chloride IV 02/26/25 10:39 100 mls/hr Q8HR BRADEN Administration Insulin Human Lispro 0 unit 02/19/25 00:45 02/20/25 05:49 Insulin Lispro (Admelog) 1 Unit/0.01 Ml Unit SC 03/21/25 00:44 Not Given Q6H [facility] Protocol Morphine Sulfate 1 mg 02/19/25 00:32 Morphine Sulf Inj 10 Mg/Ml Vial IVP 02/24/25 00:31 Q6H PRN PAIN SCALE 7-10 (Severe Ondansetron HCl 4 mg 02/19/25 00:21 Ondansetron Inj 2 Mg/Ml Inj 2 Ml IVP 03/21/25 00:20 Q6H PRN NAUSEA OR VOMITING Protocol Pharmacy Consult 1 each 02/19/25 09:00 Vancomycin Pharmacy To Dose 1 Each Each IV 03/21/25 08:59 QDAY PRN CONSULT Sennosides 1 tab 02/19/25 00:21 Senna Tablet PO 03/21/25 00:20 QDAY PRN constipation Protocol Tamsulosin HCl 0.4 mg 02/19/25 09:00 02/19/25 10:58 Tamsulosin Hcl 0.4 Mg Capsule PO 03/21/25 08:59 0.4 mg QDAY BRADEN Administration Plan 74 year old male coming from a assisted living facility with history of CKD, T2DM, hyperlipidemia, depression, CVA, CAD, PAD s/p stent in femoral a who presents with a acute on chronic left foot wound. Left foot has weeping non- healing ulcerations on the dorsum of the foot with black eschar spanning the entire lateral foot from heel to pinkie toe. #Left foot osteomyelitis #Left foot gangrene Wound ctx positive for gram negative rods Morganella and Klebsiella. MRSA nasal swab positive. BCx negative after 48h. Plan for left foot amputation today per Dr. Stein. Patient consented to the operation. Cefepime IV 2g Q8h Vancomyocin 1.25g IV NPO #Diabetes Hold metformin Sliding scale insulin #Hypertension #Hyperlipidemia Hold home meds for chornic conditions until after surgery Health maintenance Lines: PIV Diet: NPO Bowel: Senna GI Prophylaxis: Zofran DVT Prophylaxis: Heparin (hold for surgery) Disposition: Left foot osteomyelitis per surgery rec left foot amputation in the morning Code status: Full code This case was discussed with my attending physician, Dr. Jones, and senior resident Dr Vasquez. Kathleen Wilson, DO PGY I Attending Provider Attestation/Addendum I have discussed and was present for the essential components of the history, physical examination, diagnosis, and treatment plan with the resident. I agree with the patient's care as documented by the resident and amended herein by me. Omid Jones DO. Although this document has been carefully reviewed, there may still be some phonetic and other typographical errors. These errors are purely grammatical due to imperfections in the software program and should not be construed in any way to compromise the substance of the patient's medical care during this visit. Patient seen and evaluated this AM. Patient now status post left BKA, doing well, no subjective complaints, will continue broad-spectrum antibiotics for now, appreciate specialist recommendations, likely discharge to SNF in 1 to 2 days
[2025-02-20 06:13] LABS: Alanine Aminotransferase < 7 U/L (10-49); Albumin, Serum 3.2 gm/dL (3.4-4.8); Albumin/Globulin Ratio 0.9 (1.2-2.2); Alkaline Phosphatase 78 U/L (46-116); Anion Gap 13 (7-16); Aspartate Amino Transferase < 8 U/L (0-34); BUN/Creatinine Ratio 15 Ratio (12-20); Bilirubin,Total 0.2 mg/dL (0.3-1.2); Blood Urea Nitrogen 16 mg/dL (9-23); Calcium 8.8 mg/dL (8.3-10.6); Calcium (Corrected) 9.4 mg/dL (8.5-10.1); Carbon Dioxide 24.7 mMol/L (20.0-31.0); Chloride 102 mMol/L (98-107); Creatinine (Component) 1.1 mg/dL (0.6-1.3); Estimated Creatinine Clearance 65.6 mL/min (>60); Globulin 3.4 gm/dL (2.3-3.5); Glucose 193 mg/dL (74-106); Magnesium 1.2 mg/dL (1.6-2.6); Osmolality,Calculated 285 (275-295); Phosphorous 3.2 mg/dL (2.4-5.1); Potassium 3.8 mMol/L (3.4-5.1); Sodium 140 mMol/L (136-145); Total Protein 6.6 gm/dL (5.7-8.2); eGFR > 60 See Note
[2025-02-20] MEDS: Magnesium Sulfate 4 GM Ivpb 4 GM/50 ML BAG IV (09:07)
[2025-02-20] MEDS: VANCOMYCIN/D5W 1,250 MG IVPB 250 ML 120 MG IV (10:40)
--- NOTE | 2025-02-20 13:04 | PC.NURSE ---
Patient transferred to surgery via bed in stable condition.
--- NOTE | 2025-02-20 14:25 | PC.SS ---
rounding note: Pt. had surgery today.
--- NOTE | 2025-02-20 14:43 | PD.EVENT ---
Documentation for date of: 02/20/25 Event Note Event Note: Patient has elected to proceed with left below the knee amputation. Risks include but not limited to infection, bleeding, injury to surround neurovascular structures, possible stump infection and or necrosis, possible need for future amputation, pneumonia, blood clot, heart attack, stroke and discussed with the patient who was witnessed by his nurse. Benefits and alternatives explained to him, all his questions answered, he agreed and consented to proceed with the operation.
--- NOTE | 2025-02-20 14:44 | PD.SUROPNT ---
Date of Procedure 02/20/25 Pre Op Diagnosis Atherosclerosis of left lower extremity with gangrene left foot Post Op Diagnosis Atherosclerosis of left lower extremity with gangrene left foot Procedure Left below the knee amputation Findings Gangrene on the lateral aspect of left foot with multiple open wounds and exposed tendons. Posterior tibial and peroneal arteries were completely occluded Anesthesia GETA and regional (Popliteal nerve block) Pathology / specimen Other (Left foot and distal leg) Estimated Blood Loss 100 Condition Stable Disposition PACU Surgeon Mo Stein MD Surgical Staff Operation Date: 02/20/25 14:45 Case Staff CURRENCY MACHINE OPERATOR: Wilman Angeles RNdealer relationship manager: Minor Hernandez
--- NOTE | 2025-02-20 15:17 | SUR.PHASEI ---
1442: Pt received in Pacu via hospital bed. Report from Anderson ORTIZ and Cortez ROGERS. Pt obtunded. Oral airway in place. Resp even, unlabored. VS stable. Dressing to left leg dry, clean, intact. 1455: Pt responsive with eye opening. Oral airway dc'd. Resp even, unlabored. VS stable. 1515: Pt resting with no complaints voiced. Resp even, unlabored. VS stable. Dressing remains dry, clean, intact.
--- NOTE | 2025-02-20 15:41 | SUR.PHASEI ---
1535: Pt resting with no complaints voiced. VS stable. Dressing remains dry, clean, intact. Report to Tanvir RN. Pt transferred to Rm 366 in stable cndition
--- NOTE | 2025-02-20 15:44 | PC.NURSE ---
Patient to room via bed from PACU in stable condition. Dressing to LLE intact.
[2025-02-20] MEDS: INSULIN LISPRO (AdmeLOG) 1 UNIT/0.01 ML UNIT SC ×2 (17:15→21:58)
[2025-02-20] MEDS: DOCUSATE SOD 100 MG CAPSULE PO (22:00)
[2025-02-20] MEDS: ASCORBIC ACID 250 MG TABLET 500 MG PO (22:01)
[2025-02-21] VITALS (8 sets, daily range): BP systolic 107–154; BP diastolic 52–76; PULSE 57–93; RESP 16–97; TEMP 36.2–36.4; O2SAT 92–97
[2025-02-21] MEDS: CEFEPIME INJ 2 GM in SODIUM CHLORIDE 0.9% (Popper) 50 ML IV ×3 (05:22→21:26)
--- NOTE | 2025-02-21 05:57 | PD.SURPROG ---
Documentation for date of: 02/21/25 Subjective Subjective Narrative: Pt is seen and examined. He is resting comfprtably Exam Vital Signs Temp Pulse Resp BP Pulse Ox O2 Del Method O2 Flow Rate 97.4 F 70 16 154/59 H 92 L Room Air 2 02/21/25 04:00 02/21/25 04:00 02/21/25 04:00 02/21/25 04:00 02/21/25 04:00 02/21/25 04:00 02/20/25 15:30 Constitutional Constitutional: no acute distress Routine Extremities Exam Comments: Left BKA amputation stump with dressing clean, dry and intact Assessment & Plan Assessment Additional comments: POD#! s/p left BKA Plan Keep dressings intact, will remove on POD#3 PROCEDURES: Procedures Left below the knee amputation
[2025-02-21 06:23] LABS: Basophils # (Auto) 0.0 Thou/mm3 (0.0-0.2); Basophils % (Auto) 0 % (0-2.5); Eosinophils # (Auto) 0.0 Thou/mm3 (0.0-0.5); Eosinophils % (Auto) 0 % (0-10); Hematocrit 22.0 % (41.0-53.0); Immature Granulocytes Auto 0.08 Thou/mm3 (0.00-0.00); Lymphocytes # (Auto) 0.6 Thou/mm3 (1.0-4.8); Lymphocytes % (Auto) 6 % (10-50); Mean Corpuscular HGB Conc 31.8 g/dl (31.0-37.0); Mean Corpuscular Hemoglobin 24.4 pg (25.0-35.0); Mean Corpuscular Volume 77 fL (80-100); Monocytes # (Auto) 0.9 Thou/mm3 (0.0-0.8); Monocytes % (Auto) 10 % (0-12); Neutrophils # (Auto) 8.2 Thou/mm3 (1.8-7.7); Neutrophils % (Auto) 84 % (37-80); Nucleated Red Blood Cell # 0.00 Thou/mm3 (0.00-0.00); Nucleated Red Blood Cell % 0 /100 WBC (0); Platelet Count 312 Thou/mm3 (140-440); RDW Standard Deviation 42.1 fL (35.1-43.9); Red Blood Count 2.87 Miln/mm3 (4.50-5.90); White Blood Count 9.7 Thou/mm3 (3.8-10.6)
[2025-02-21 06:58] LABS: Hemoglobin 7.0 g/dL (13.5-16.0)
[2025-02-21 07:06] LABS: Alanine Aminotransferase < 7 U/L (10-49); Albumin, Serum 3.2 gm/dL (3.4-4.8); Albumin/Globulin Ratio 1.0 (1.2-2.2); Alkaline Phosphatase 71 U/L (46-116); Anion Gap 9 (7-16); Aspartate Amino Transferase < 8 U/L (0-34); BUN/Creatinine Ratio 14 Ratio (12-20); Bilirubin,Total < 0.2 mg/dL (0.3-1.2); Blood Urea Nitrogen 17 mg/dL (9-23); Calcium 8.5 mg/dL (8.3-10.6); Calcium (Corrected) 9.1 mg/dL (8.5-10.1); Carbon Dioxide 25.1 mMol/L (20.0-31.0); Chloride 106 mMol/L (98-107); Creatinine (Component) 1.2 mg/dL (0.6-1.3); Estimated Creatinine Clearance 60.1 mL/min (>60); Globulin 3.1 gm/dL (2.3-3.5); Glucose 254 mg/dL (74-106); Magnesium 1.6 mg/dL (1.6-2.6); Osmolality,Calculated 289 (275-295); Phosphorous 2.9 mg/dL (2.4-5.1); Potassium 4.4 mMol/L (3.4-5.1); Sodium 140 mMol/L (136-145); Total Protein 6.3 gm/dL (5.7-8.2); eGFR > 60 See Note
[2025-02-21] MEDS: INSULIN LISPRO (AdmeLOG) 1 UNIT/0.01 ML UNIT SC ×3 (07:33→17:26)
[2025-02-21] MEDS: TAMSULOSIN HCL 0.4 MG CAPSULE PO (09:38)
[2025-02-21] MEDS: DOCUSATE SOD 100 MG CAPSULE PO ×2 (09:38→20:02)
[2025-02-21] MEDS: ZINC SULFATE 220 MG CAPSULE PO (09:38)
[2025-02-21] MEDS: ASCORBIC ACID 250 MG TABLET 500 MG PO ×2 (09:38→20:02)
[2025-02-21 10:11] LABS: Vancomycin,Trough 17.2 mcg/mL (5.0-10.0)
[2025-02-21] MEDS: VANCOMYCIN/WATER 1250 MG IVPB 250 ML 120 MG IV (11:15)
--- NOTE | 2025-02-21 14:36 | PC.SS ---
Rounding note:Pt. is still pending another surgery, possible d/c in 3-4 days.
--- NOTE | 2025-02-21 17:59 | ESPR_ITS ---
<Statement entered by Juan José Katz MD - 02/21/25 18:14> Summary: Admitted for left foot osteomyelitis, POD 1 uncomplicated left BKA. Continued on pain control and IV ANTIBIOTICS. I?ve reviewed the note and agree with the resident's assessment and plan, with the exceptions outlined above. I personally went over the labs, imaging, home medications, and prior records, and examined the patient. The case was also reviewed with the attending physician. Please note: this document was transcribed using voice recognition technology; minor inaccuracies may be present. Juan José Katz DO PGY II Documentation for date of: 02/21/25 Subjective Subjective Interval history: Patient was seen and examined at bedside. No acute events took place overnight. Patient underwent left foot and distal leg amputation yesterday. In the aftermath of surgery, patient has been afebrile, diet has already been advanced, and patient tolerates intake well. Blood glucose was 254 this morning and the nurse gave lispro 2 units per insulin sliding scale protocol. Exam Vital Signs Temp Pulse Resp BP Pulse Ox O2 Del Method O2 Flow Rate 97.4 F 57 L 16 122/63 97 Room Air 2 02/21/25 16:00 02/21/25 16:49 02/21/25 16:49 02/21/25 16:00 02/21/25 16:49 02/21/25 16:00 02/20/25 15:30 Narrative Exam Narrative Exam GENERAL:?Agitated, not amenable to conversation. AOx3 HEENT: Normocephalic, atraumatic and nontender.? Pupils are equal and reactive to light and accommodation.? Oral mucosa are moist. NECK: Supple without adenopathy. Traquea midline. Nontender, carotid pulse 2+ bilaterally without bruits, no JVD.? CHEST: Heart rate and rythm normal, no murmurs, gallops auscultated. S1 & 2 normal insensity. Nontender on palpation, no deformity and no crepitus. LUNGS: Nasal cannula. Lung sounds are clear.? No wheezing, rales or ronchi.? No intercostal subcostal retraction. Room air ABDOMEN: Soft,symmetric , nontender, no guarding or rebound tenderness. No abnormal masses palpated.? No pulsatile masses or bruits.? Bowel sounds are normoactive in all 4 quadrants. No Mcclellan EXTREMITIES: Rt forefoot amputated. Lt BKA. Nontender.? No pitting edema.? No cyanosis.? Patient is able to move all 4 extremities. SKIN: No rashes noted. NEURO: Sensation intact in lower extremities. Objective Labs 02/22/25 05:16 02/22/25 05:16 Labs: Laboratory Results - last 24 hr 02/21/25 02/21/25 05:52 09:32 WBC 9.7 RBC 2.87 L Hgb 7.0 L Hct 22.0 L MCV 77 L MCH 24.4 L MCHC 31.8 RDW Std Deviation 42.1 Plt Count 312 Neut % (Auto) 84 H Lymph % (Auto) 6 L [place] % (Auto) 10 Eos % (Auto) 0 Baso % (Auto) 0 Neut # (Auto) 8.2 H Lymph # (Auto) 0.6 L [place] # (Auto) 0.9 H Eos # (Auto) 0.0 Baso # (Auto) 0.0 Immature Gran # (Auto) 0.08 H Absolute Nucleated RBC 0.00 Immature Gran % 1 H Nucleated RBC % 0 Sodium 140 Potassium 4.4 D Chloride 106 Carbon Dioxide 25.1 Anion Gap 9 BUN 17 Creatinine 1.2 Estim Creat Clear Calc 60.1 L eGFR > 60 BUN/Creatinine Ratio 14 Glucose 254 H D Calculated Osmolality 289 Calcium 8.5 Corrected Calcium 9.1 Phosphorus 2.9 Magnesium 1.6 Total Bilirubin < 0.2 L AST < 8 ALT < 7 L Alkaline Phosphatase 71 Total Protein 6.3 Albumin 3.2 L Globulin 3.1 Albumin/Globulin Ratio 1.0 L Vancomycin Trough 17.2 H Quality Measures Quality Measures none Advance care planning discussed with:: patient Assessment & Plan Assessment Current Active Medications: Generic Name Dose Route Start Last Admin Trade Name Freq PRN Reason Stop Dose Admin Acetaminophen 650 mg 02/19/25 00:21 Acetaminophen 325 Mg Tablet PO 03/21/25 00:20 Q6H PRN PAIN SCALE 1-3 (mild Hydrocodone Bitart/Acetaminophen 1 tab 02/19/25 00:32 Hydrocodone/Apap 5/325 Tablet PO 02/24/25 00:31 Q4HR PRN PAIN SCALE 4-6 (Moderate Albuterol/Ipratropium 3 ml 02/20/25 13:17 Albuterol/Ipratropium (Duoneb) Rt Crystal 3 Ml Nebu INH 03/22/25 13:16 Q4HRRT PRN WHEEZING Ascorbic Acid 500 mg 02/20/25 21:00 02/21/25 09:38 Ascorbic Acid 250 Mg Tablet PO 03/22/25 20:59 500 mg BID BRADEN Administration Dextrose 25 ml 02/19/25 00:32 Dextrose 50%-Water Inj 50 Ml Syringe IV 03/21/25 00:31 Q15MIN PRN BG 50-70 responsive npo pt Dextrose 50 ml 02/19/25 00:32 Dextrose 50%-Water Inj 50 Ml Syringe IV 03/21/25 00:31 Q15MIN PRN BG <50 OR BG <70 & pt unresponsive Docusate Sodium 100 mg 02/20/25 21:00 02/21/25 09:38 Docusate Sod 100 Mg Capsule PO 03/22/25 20:59 100 mg BID BRADEN Administration Protocol Glucagon 1 mg 02/19/25 00:32 Glucagon Inj 1 Mg Vial IM Q15MIN PRN BG <70, and no IV access Cefepime HCl 2 gm/ Sodium 50 mls @ 100 mls/hr 02/19/25 10:40 02/21/25 13:59 Chloride IV 02/26/25 10:39 100 mls/hr Q8HR BRADEN Administration Vancomycin HCl 250 mls @ 120 mls/hr 02/21/25 10:45 02/21/25 11:15 Vancomycin/Water 1250 Mg Ivpb IV 02/28/25 10:44 120 mls/hr QDAY@1000 BRADEN Administration Insulin Human Lispro 0 unit 02/20/25 21:00 02/21/25 17:26 Insulin Lispro (Admelog) 1 Unit/0.01 Ml Unit SC 03/22/25 20:59 1 unit ACHS BRADEN Administration Protocol Morphine Sulfate 1 mg 02/19/25 00:32 Morphine Sulf Inj 10 Mg/Ml Vial IVP 02/24/25 00:31 Q6H PRN PAIN SCALE 7-10 (Severe Pharmacy Consult 1 each 02/19/25 09:00 Vancomycin Pharmacy To Dose 1 Each Each IV 03/21/25 08:59 QDAY PRN CONSULT Sennosides 1 tab 02/19/25 00:21 Senna Tablet PO 03/21/25 00:20 QDAY PRN constipation Protocol Tamsulosin HCl 0.4 mg 02/19/25 09:00 02/21/25 09:38 Tamsulosin Hcl 0.4 Mg Capsule PO 03/21/25 08:59 0.4 mg QDAY BRADEN Administration Zinc Sulfate 220 mg 02/21/25 09:00 02/21/25 09:38 Zinc Sulfate 220 Mg Capsule PO 03/23/25 08:59 220 mg QDAY BRADEN Administration Plan 74 year old male coming from a assisted living facility with history of CKD, T2DM, hyperlipidemia, depression, CVA, CAD, PAD s/p stent in femoral a who was brought in for gangrenous foot with a nonhealing deep dorsal ulcer. #Left foot osteomyelitis #Left foot gangrene #POD 1 uncomplicated left BKA Wound ctx positive for gram negative rods Morganella and Klebsiella. MRSA nasal swab positive. BCx negative after 48h. Surgery, Dr Stein on board. Plan: Cefepime IV 2g Q8h Vancomyocin 1.25g IV per surgery, keep dressings intact, will remove on POD 3 #Diabetes Hold metformin Sliding scale insulin weight based basal and bolus insulin regiment #Hypertension #Hyperlipidemia Hold home meds for chornic conditions until after surgery Health maintenance Lines: PIV Diet: NPO Bowel: Senna GI Prophylaxis: Zofran DVT Prophylaxis: Heparin (hold for surgery) Disposition: Left foot osteomyelitis per surgery rec left foot amputation in the morning Code status: Full code This case was discussed with my attending physician, Dr. Jones, and senior resident Dr Vasquez. Kathleen Wilson DO PGY I Attending Provider Attestation/Addendum I have discussed and was present for the essential components of the history, physical examination, diagnosis, and treatment plan with the resident. I agree with the patient's care as documented by the resident and amended herein by me. Omid Jones DO. Although this document has been carefully reviewed, there may still be some phonetic and other typographical errors. These errors are purely grammatical due to imperfections in the software program and should not be construed in any way to compromise the substance of the patient's medical care during this visit.
[2025-02-21] MEDS: INSULIN GLARGINE (Lantus) 5 UNIT/0.05 ML (PER 5 UNITS) 10 UNIT SC (20:05)
[2025-02-22] VITALS (8 sets, daily range): BP systolic 117–166; BP diastolic 70–85; PULSE 62–93; RESP 16–94; TEMP 36.6–36.8; O2SAT 92–100; BMI 23.6
[2025-02-22] MEDS: CEFEPIME INJ 2 GM in SODIUM CHLORIDE 0.9% (Popper) 50 ML IV ×3 (05:00→21:24)
[2025-02-22 05:36] LABS: Basophils # (Auto) 0.0 Thou/mm3 (0.0-0.2); Basophils % (Auto) 0 % (0-2.5); Eosinophils # (Auto) 0.7 Thou/mm3 (0.0-0.5); Eosinophils % (Auto) 6 % (0-10); Hematocrit 23.5 % (41.0-53.0); Immature Granulocytes Auto 0.08 Thou/mm3 (0.00-0.00); Lymphocytes # (Auto) 1.4 Thou/mm3 (1.0-4.8); Lymphocytes % (Auto) 12 % (10-50); Mean Corpuscular HGB Conc 32.8 g/dl (31.0-37.0); Mean Corpuscular Hemoglobin 25.0 pg (25.0-35.0); Mean Corpuscular Volume 76 fL (80-100); Monocytes # (Auto) 1.2 Thou/mm3 (0.0-0.8); Monocytes % (Auto) 11 % (0-12); Neutrophils # (Auto) 8.1 Thou/mm3 (1.8-7.7); Neutrophils % (Auto) 70 % (37-80); Nucleated Red Blood Cell # 0.00 Thou/mm3 (0.00-0.00); Nucleated Red Blood Cell % 0 /100 WBC (0); Platelet Count 330 Thou/mm3 (140-440); RDW Standard Deviation 42.5 fL (35.1-43.9); Red Blood Count 3.08 Miln/mm3 (4.50-5.90); White Blood Count 11.5 Thou/mm3 (3.8-10.6)
[2025-02-22 06:07] LABS: Hemoglobin 7.7 g/dL (13.5-16.0)
[2025-02-22 06:36] LABS: Alanine Aminotransferase < 7 U/L (10-49); Albumin, Serum 3.4 gm/dL (3.4-4.8); Albumin/Globulin Ratio 1.1 (1.2-2.2); Alkaline Phosphatase 74 U/L (46-116); Anion Gap 11 (7-16); Aspartate Amino Transferase 12 U/L (0-34); BUN/Creatinine Ratio 14 Ratio (12-20); Bilirubin,Total 0.2 mg/dL (0.3-1.2); Blood Urea Nitrogen 17 mg/dL (9-23); Calcium 8.6 mg/dL (8.3-10.6); Calcium (Corrected) 9.1 mg/dL (8.5-10.1); Carbon Dioxide 24.9 mMol/L (20.0-31.0); Chloride 106 mMol/L (98-107); Creatinine (Component) 1.2 mg/dL (0.6-1.3); Estimated Creatinine Clearance 60.1 mL/min (>60); Globulin 3.1 gm/dL (2.3-3.5); Glucose 121 mg/dL (74-106); Magnesium 1.7 mg/dL (1.6-2.6); Osmolality,Calculated 285 (275-295); Phosphorous 2.2 mg/dL (2.4-5.1); Potassium 3.4 mMol/L (3.4-5.1); Sodium 142 mMol/L (136-145); Total Protein 6.5 gm/dL (5.7-8.2); eGFR > 60 See Note
[2025-02-22] MEDS: ZINC SULFATE 220 MG CAPSULE PO (08:02)
[2025-02-22] MEDS: ASCORBIC ACID 250 MG TABLET 500 MG PO ×2 (08:02→20:26)
[2025-02-22] MEDS: DOCUSATE SOD 100 MG CAPSULE PO ×2 (08:02→20:26)
[2025-02-22] MEDS: TAMSULOSIN HCL 0.4 MG CAPSULE PO (08:02)
[2025-02-22] MEDS: VANCOMYCIN/WATER 1250 MG IVPB 250 ML 120 MG IV (09:12)
--- NOTE | 2025-02-22 11:52 | PD.RESPRO ---
Documentation for date of: 02/22/25 Subjective Subjective Interval history: Patient was seen and examined at bedside. No acute events took place overnight. Patient is recovering well in the aftermath of left BKA surgery. He has been afebrile, no N/V/D. Patient with previous history of CVA with residual dysphagia. Patient was noted to be coughing after breakfast, swallowing capacity was assessed. blood glucose was 124 this morning after starting the patient on basal insulin glargine at bedtime yesterday, in addition to meal based sliding insulin scale. Exam Vital Signs Temp Pulse Resp BP Pulse Ox O2 Del Method O2 Flow Rate 97.9 F 68 18 117/83 96 Room Air 2 02/22/25 11:44 02/22/25 11:44 02/22/25 11:44 02/22/25 11:44 02/22/25 11:44 02/22/25 11:44 02/20/25 15:30 Narrative Exam Narrative Exam GENERAL: Pt is not amenable to conversation. AOx1. HEENT: Normocephalic, atraumatic and nontender.? Pupils are equal and reactive to light and accommodation.? Oral mucosa are moist. NECK: Supple without adenopathy. Traquea midline. Nontender, carotid pulse 2+ bilaterally without bruits, no JVD.? CHEST: Heart rate and rythm normal, no murmurs, gallops auscultated. S1 & 2 normal insensity. Nontender on palpation, no deformity and no crepitus. LUNGS: Nasal cannula. Lung sounds are clear.? No wheezing, rales or ronchi.? No intercostal subcostal retraction. Room air ABDOMEN: Soft,symmetric , nontender, no guarding or rebound tenderness. No abnormal masses palpated.? No pulsatile masses or bruits.? Bowel sounds are normoactive in all 4 quadrants. No Mcclellan EXTREMITIES: Rt forefoot amputated. Lt BKA. Nontender.? No pitting edema.? No cyanosis.? Patient is able to move all 4 extremities. SKIN: No rashes noted. NEURO: Sensation intact in lower extremities. Objective Labs 02/22/25 05:16 02/22/25 05:16 Labs: Laboratory Results - last 24 hr 02/22/25 05:16 WBC 11.5 H RBC 3.08 L Hgb 7.7 L Hct 23.5 L MCV 76 L MCH 25.0 MCHC 32.8 RDW Std Deviation 42.5 Plt Count 330 Neut % (Auto) 70 Lymph % (Auto) 12 [place] % (Auto) 11 Eos % (Auto) 6 Baso % (Auto) 0 Neut # (Auto) 8.1 H Lymph # (Auto) 1.4 [place] # (Auto) 1.2 H Eos # (Auto) 0.7 H Baso # (Auto) 0.0 Immature Gran # (Auto) 0.08 H Absolute Nucleated RBC 0.00 Immature Gran % 1 H Nucleated RBC % 0 Sodium 142 Potassium 3.4 D Chloride 106 Carbon Dioxide 24.9 Anion Gap 11 BUN 17 Creatinine 1.2 Estim Creat Clear Calc 60.1 L eGFR > 60 BUN/Creatinine Ratio 14 Glucose 121 H D Calculated Osmolality 285 Calcium 8.6 Corrected Calcium 9.1 Phosphorus 2.2 L Magnesium 1.7 Total Bilirubin 0.2 L AST 12 ALT < 7 L Alkaline Phosphatase 74 Total Protein 6.5 Albumin 3.4 Globulin 3.1 Albumin/Globulin Ratio 1.1 L Quality Measures Quality Measures none Advance care planning discussed with:: patient Assessment & Plan Assessment Current Active Medications: Generic Name Dose Route Start Last Admin Trade Name Freq PRN Reason Stop Dose Admin Acetaminophen 650 mg 02/19/25 00:21 Acetaminophen 325 Mg Tablet PO 03/21/25 00:20 Q6H PRN PAIN SCALE 1-3 (mild Hydrocodone Bitart/Acetaminophen 1 tab 02/19/25 00:32 Hydrocodone/Apap 5/325 Tablet PO 02/24/25 00:31 Q4HR PRN PAIN SCALE 4-6 (Moderate Albuterol/Ipratropium 3 ml 02/20/25 13:17 Albuterol/Ipratropium (Duoneb) Rt Crystal 3 Ml Nebu INH 03/22/25 13:16 Q4HRRT PRN WHEEZING Ascorbic Acid 500 mg 02/20/25 21:00 02/22/25 08:02 Ascorbic Acid 250 Mg Tablet PO 03/22/25 20:59 500 mg BID BRADEN Administration Dextrose 25 ml 02/19/25 00:32 Dextrose 50%-Water Inj 50 Ml Syringe IV 03/21/25 00:31 Q15MIN PRN BG 50-70 responsive npo pt Dextrose 50 ml 02/19/25 00:32 Dextrose 50%-Water Inj 50 Ml Syringe IV 03/21/25 00:31 Q15MIN PRN BG <50 OR BG <70 & pt unresponsive Docusate Sodium 100 mg 02/20/25 21:00 02/22/25 08:02 Docusate Sod 100 Mg Capsule PO 03/22/25 20:59 100 mg BID BRADEN Administration Protocol Glucagon 1 mg 02/19/25 00:32 Glucagon Inj 1 Mg Vial IM Q15MIN PRN BG <70, and no IV access Cefepime HCl 2 gm/ Sodium 50 mls @ 100 mls/hr 02/19/25 10:40 02/22/25 05:00 Chloride IV 02/26/25 10:39 100 mls/hr Q8HR BRADEN Administration Vancomycin HCl 250 mls @ 120 mls/hr 02/21/25 10:45 02/22/25 09:12 Vancomycin/Water 1250 Mg Ivpb IV 02/28/25 10:44 120 mls/hr QDAY@1000 BRADEN Administration Insulin Glargine 10 unit 02/22/25 21:00 Insulin Glargine (Lantus) 5 Unit/0.05 Ml (Per 5 Units) SC 03/24/25 20:59 HS [facility] Insulin Human Lispro 0 unit 02/22/25 07:30 02/22/25 11:19 Insulin Lispro (Admelog) 1 Unit/0.01 Ml Unit SC 03/24/25 07:29 Not Given AC [facility] Protocol Morphine Sulfate 1 mg 02/19/25 00:32 Morphine Sulf Inj 10 Mg/Ml Vial IVP 02/24/25 00:31 Q6H PRN PAIN SCALE 7-10 (Severe Pharmacy Consult 1 each 02/19/25 09:00 Vancomycin Pharmacy To Dose 1 Each Each IV 03/21/25 08:59 QDAY PRN CONSULT Sennosides 1 tab 02/19/25 00:21 Senna Tablet PO 03/21/25 00:20 QDAY PRN constipation Protocol Tamsulosin HCl 0.4 mg 02/19/25 09:00 02/22/25 08:02 Tamsulosin Hcl 0.4 Mg Capsule PO 03/21/25 08:59 0.4 mg QDAY BRADEN Administration Zinc Sulfate 220 mg 02/21/25 09:00 02/22/25 08:02 Zinc Sulfate 220 Mg Capsule PO 03/23/25 08:59 220 mg QDAY BRADEN Administration Plan 74 year old male coming from a assisted living facility with history of CKD, T2DM, hyperlipidemia, depression, CVA, CAD, PAD s/p stent in femoral a who was brought in for gangrenous foot with a nonhealing deep dorsal ulcer. #Left foot osteomyelitis #Left foot gangrene #POD 1 uncomplicated left BKA Wound ctx positive for gram negative rods Morganella and Klebsiella. Hgb stable at 7.7 (02/22) MRSA nasal swab positive. BCx negative after 48h. Surgery, Dr Stein on board. Plan: Cefepime IV 2g Q8h Vancomyocin 1.25g IV per surgery, keep dressings intact, will remove on POD 3 #Diabetes Hold metformin Sliding scale insulin AC Inslun glargine 10u HS weight based basal and bolus insulin regiment #Dysphagia #h/o CVA Patient is oriented to himself only. -ordered speech/swallow eval Patient placed on dysphagia 2 diet. #Hypertension #Hyperlipidemia Hold home meds for chornic conditions until after surgery Health maintenance Lines: PIV Diet: NPO Bowel: Senna GI Prophylaxis: Zofran DVT Prophylaxis: Heparin (hold for surgery) Disposition: Left foot osteomyelitis per surgery rec left foot amputation in the morning Code status: Full code This case was discussed with my attending physician, Dr. Jones. Kathleen Wlison DO PGY I Attending Provider Attestation/Addendum I have discussed and was present for the essential components of the history, physical examination, diagnosis, and treatment plan with the resident. I agree with the patient's care as documented by the resident and amended herein by me. Omid Jones DO. Although this document has been carefully reviewed, there may still be some phonetic and other typographical errors. These errors are purely grammatical due to imperfections in the software program and should not be construed in any way to compromise the substance of the patient's medical care during this visit. Patient seen and evaluated this AM. No acute events overnight, vital signs stable, patient afebrile, hemoglobin stable 7.7. BMP largely unremarkable. Postop day due today, will remove dressing on postop day 3, will continue antibiotics for now however may de-escalate tomorrow pending further surgical recommendations. Will start dysphagia diet per speech therapy recommendations and continue Lantus and sliding scale insulin for the patient's hyperglycemia which she is normoglycemic today. Will continue monitor closely Noa
--- NOTE | 2025-02-22 15:43 | PC.NURSE ---
Xuan Sure in place. Patient removing IV's. Will continue to monitor patient.
[2025-02-22] MEDS: INSULIN LISPRO (AdmeLOG) 1 UNIT/0.01 ML UNIT SC (17:35)
[2025-02-22] MEDS: INSULIN GLARGINE (Lantus) 5 UNIT/0.05 ML (PER 5 UNITS) 10 UNIT SC (20:26)
[2025-02-23] VITALS (9 sets, daily range): BP systolic 108–164; BP diastolic 54–93; PULSE 51–86; RESP 16–95; TEMP 36.2–36.6; O2SAT 94–99
[2025-02-23] MEDS: CEFEPIME INJ 2 GM in SODIUM CHLORIDE 0.9% (Popper) 50 ML IV ×3 (05:03→21:52)
[2025-02-23 06:02] LABS: Basophils # (Auto) 0.0 Thou/mm3 (0.0-0.2); Basophils % (Auto) 0 % (0-2.5); Eosinophils # (Auto) 0.8 Thou/mm3 (0.0-0.5); Eosinophils % (Auto) 5 % (0-10); Hematocrit 25.9 % (41.0-53.0); Immature Granulocytes Auto 0.12 Thou/mm3 (0.00-0.00); Lymphocytes # (Auto) 1.4 Thou/mm3 (1.0-4.8); Lymphocytes % (Auto) 10 % (10-50); Mean Corpuscular HGB Conc 31.3 g/dl (31.0-37.0); Mean Corpuscular Hemoglobin 24.5 pg (25.0-35.0); Mean Corpuscular Volume 79 fL (80-100); Monocytes # (Auto) 1.1 Thou/mm3 (0.0-0.8); Monocytes % (Auto) 7 % (0-12); Neutrophils # (Auto) 11.1 Thou/mm3 (1.8-7.7); Neutrophils % (Auto) 76 % (37-80); Nucleated Red Blood Cell # 0.00 Thou/mm3 (0.00-0.00); Nucleated Red Blood Cell % 0 /100 WBC (0); Platelet Count 366 Thou/mm3 (140-440); RDW Standard Deviation 43.5 fL (35.1-43.9); Red Blood Count 3.30 Miln/mm3 (4.50-5.90); White Blood Count 14.5 Thou/mm3 (3.8-10.6)
[2025-02-23 06:19] LABS: Hemoglobin 8.1 g/dL (13.5-16.0)
[2025-02-23 06:28] LABS: Alanine Aminotransferase < 7 U/L (10-49); Albumin, Serum 3.5 gm/dL (3.4-4.8); Albumin/Globulin Ratio 1.1 (1.2-2.2); Alkaline Phosphatase 81 U/L (46-116); Anion Gap 11 (7-16); Aspartate Amino Transferase 11 U/L (0-34); BUN/Creatinine Ratio 16 Ratio (12-20); Bilirubin,Total 0.2 mg/dL (0.3-1.2); Blood Urea Nitrogen 16 mg/dL (9-23); Calcium 9.4 mg/dL (8.3-10.6); Calcium (Corrected) 9.8 mg/dL (8.5-10.1); Carbon Dioxide 24.0 mMol/L (20.0-31.0); Chloride 104 mMol/L (98-107); Creatinine (Component) 1.0 mg/dL (0.6-1.3); Estimated Creatinine Clearance 70.1 mL/min (>60); Globulin 3.3 gm/dL (2.3-3.5); Glucose 165 mg/dL (74-106); Magnesium 1.6 mg/dL (1.6-2.6); Osmolality,Calculated 282 (275-295); Phosphorous 2.6 mg/dL (2.4-5.1); Potassium 3.5 mMol/L (3.4-5.1); Sodium 139 mMol/L (136-145); Total Protein 6.8 gm/dL (5.7-8.2); eGFR > 60 See Note
[2025-02-23] MEDS: INSULIN LISPRO (AdmeLOG) 1 UNIT/0.01 ML UNIT SC ×2 (07:18→11:36)
[2025-02-23] MEDS: TAMSULOSIN HCL 0.4 MG CAPSULE PO (08:28)
[2025-02-23] MEDS: ASCORBIC ACID 250 MG TABLET 500 MG PO ×2 (08:28→20:07)
[2025-02-23] MEDS: ZINC SULFATE 220 MG CAPSULE PO (08:28)
[2025-02-23] MEDS: DOCUSATE SOD 100 MG CAPSULE PO ×2 (08:28→20:08)
[2025-02-23] MEDS: VANCOMYCIN/WATER 1250 MG IVPB 250 ML 120 MG IV (11:44)
--- NOTE | 2025-02-23 13:09 | PD.RESPRO ---
Documentation for date of: 02/23/25 Subjective Subjective Interval history: Patient was seen and examined at bedside. No acute events took place overnight. Patient is recovering well in the aftermath of left BKA surgery. He has been afebrile, no N/V/D. Patient with previous history of CVA with residual dysphagia, and his meds have been crushed before giving them to him. patient is minimally conversant, ANO x 1, knows the state but cannot identify the city nor the place he is at. According to nurse, patient had pulled out his lines twice in the evening of yesterday and overnight. As a result, the nurse had to tape the IV line onto his arm. Exam Vital Signs Temp Pulse Resp BP Pulse Ox O2 Del Method O2 Flow Rate 97.5 F 60 16 159/58 H 98 Room Air 2 02/23/25 12:00 02/23/25 12:00 02/23/25 12:02/23/25 12:02/23/25 12:00 02/23/25 12:00 02/20/25 15:30 Narrative Exam Narrative Exam GENERAL: Pt is not amenable to conversation. AOx1. HEENT: Normocephalic, atraumatic and nontender.? Pupils are equal and reactive to light and accommodation.? Oral mucosa are moist. NECK: Supple without adenopathy. Traquea midline. Nontender, carotid pulse 2+ bilaterally without bruits, no JVD.? CHEST: Heart rate and rythm normal, no murmurs, gallops auscultated. S1 & 2 normal insensity. Nontender on palpation, no deformity and no crepitus. LUNGS: Nasal cannula. Lung sounds are clear.? No wheezing, rales or ronchi.? No intercostal subcostal retraction. Room air ABDOMEN: Soft,symmetric , nontender, no guarding or rebound tenderness. No abnormal masses palpated.? No pulsatile masses or bruits.? Bowel sounds are normoactive in all 4 quadrants. No Mcclellan EXTREMITIES: Rt forefoot amputated. Lt BKA. Nontender.? No pitting edema.? No cyanosis.? Patient is able to move all 4 extremities. SKIN: No rashes noted. NEURO: Sensation intact in lower extremities. Objective Labs 02/23/25 04:26 02/23/25 04:26 Labs: Laboratory Results - last 24 hr 02/23/25 04:26 WBC 14.5 H RBC 3.30 L Hgb 8.1 L Hct 25.9 L MCV 79 L MCH 24.5 L MCHC 31.3 RDW Std Deviation 43.5 Plt Count 366 D Neut % (Auto) 76 Lymph % (Auto) 10 [place] % (Auto) 7 Eos % (Auto) 5 Baso % (Auto) 0 Neut # (Auto) 11.1 H Lymph # (Auto) 1.4 [place] # (Auto) 1.1 H Eos # (Auto) 0.8 H Baso # (Auto) 0.0 Immature Gran # (Auto) 0.12 H Absolute Nucleated RBC 0.00 Immature Gran % 1 H Nucleated RBC % 0 Sodium 139 Potassium 3.5 Chloride 104 Carbon Dioxide 24.0 Anion Gap 11 BUN 16 Creatinine 1.0 Estim Creat Clear Calc 70.1 eGFR > 60 BUN/Creatinine Ratio 16 Glucose 165 H Calculated Osmolality 282 Calcium 9.4 Corrected Calcium 9.8 Phosphorus 2.6 Magnesium 1.6 Total Bilirubin 0.2 L AST 11 ALT < 7 L Alkaline Phosphatase 81 Total Protein 6.8 Albumin 3.5 Globulin 3.3 Albumin/Globulin Ratio 1.1 L Quality Measures Quality Measures none Advance care planning discussed with:: patient Assessment & Plan Assessment Current Active Medications: Generic Name Dose Route Start Last Admin Trade Name Freq PRN Reason Stop Dose Admin Acetaminophen 650 mg 02/19/25 00:21 Acetaminophen 325 Mg Tablet PO 03/21/25 00:20 Q6H PRN PAIN SCALE 1-3 (mild Hydrocodone Bitart/Acetaminophen 1 tab 02/19/25 00:32 Hydrocodone/Apap 5/325 Tablet PO 02/24/25 00:31 Q4HR PRN PAIN SCALE 4-6 (Moderate Albuterol/Ipratropium 3 ml 02/20/25 13:17 Albuterol/Ipratropium (Duoneb) Rt Crystal 3 Ml Nebu INH 03/22/25 13:16 Q4HRRT PRN WHEEZING Ascorbic Acid 500 mg 02/20/25 21:00 02/23/25 08:28 Ascorbic Acid 250 Mg Tablet PO 03/22/25 20:59 500 mg BID BRADEN Administration Dextrose 25 ml 02/19/25 00:32 Dextrose 50%-Water Inj 50 Ml Syringe IV 03/21/25 00:31 Q15MIN PRN BG 50-70 responsive npo pt Dextrose 50 ml 02/19/25 00:32 Dextrose 50%-Water Inj 50 Ml Syringe IV 03/21/25 00:31 Q15MIN PRN BG <50 OR BG <70 & pt unresponsive Docusate Sodium 100 mg 02/20/25 21:00 02/23/25 08:28 Docusate Sod 100 Mg Capsule PO 03/22/25 20:59 100 mg BID BRADEN Administration Protocol Glucagon 1 mg 02/19/25 00:32 Glucagon Inj 1 Mg Vial IM Q15MIN PRN BG <70, and no IV access Cefepime HCl 2 gm/ Sodium 50 mls @ 100 mls/hr 02/19/25 10:40 02/23/25 05:33 Chloride IV 02/26/25 10:39 Infused Q8HR BRADEN Infusion Vancomycin HCl 250 mls @ 120 mls/hr 02/21/25 10:45 02/23/25 11:44 Vancomycin/Water 1250 Mg Ivpb IV 02/28/25 10:44 120 mls/hr QDAY@1000 BRADEN Administration Protocol Insulin Glargine 10 unit 02/22/25 21:00 02/22/25 20:26 Insulin Glargine (Lantus) 5 Unit/0.05 Ml (Per 5 Units) SC 03/24/25 20:59 10 unit HS BRADEN Administration Insulin Human Lispro 0 unit 02/22/25 07:30 02/23/25 11:36 Insulin Lispro (Admelog) 1 Unit/0.01 Ml Unit SC 03/24/25 07:29 2 unit AC BRADEN Administration Protocol Lisinopril 40 mg 02/23/25 09:00 02/23/25 08:27 Lisinopril 20 Mg Tablet PO 03/25/25 08:59 40 mg QDAY BRADEN Administration Morphine Sulfate 1 mg 02/19/25 00:32 Morphine Sulf Inj 10 Mg/Ml Vial IVP 02/24/25 00:31 Q6H PRN PAIN SCALE 7-10 (Severe Pharmacy Consult 1 each 02/19/25 09:00 Vancomycin Pharmacy To Dose 1 Each Each IV 03/21/25 08:59 QDAY PRN CONSULT Sennosides 1 tab 02/19/25 00:21 Senna Tablet PO 03/21/25 00:20 QDAY PRN constipation Protocol Tamsulosin HCl 0.4 mg 02/19/25 09:00 02/23/25 08:28 Tamsulosin Hcl 0.4 Mg Capsule PO 03/21/25 08:59 0.4 mg QDAY BRADEN Administration Zinc Sulfate 220 mg 02/21/25 09:00 02/23/25 08:28 Zinc Sulfate 220 Mg Capsule PO 03/23/25 08:59 220 mg QDAY BRADEN Administration Plan 74 year old male coming from a assisted living facility with history of CKD, T2DM, hyperlipidemia, depression, CVA, CAD, PAD s/p stent in femoral a who was brought in for gangrenous foot with a nonhealing deep dorsal ulcer. Pt underwent Lt below knee amputation [id number], POD#3. #Left foot osteomyelitis #Left foot gangrene #POD 1 uncomplicated left BKA Wound ctx positive for gram negative rods Morganella and Klebsiella. Hgb stablizing 7.7, 8.1 (02/23) Elevated WBC 14.5 could be attributed to benign leukocytosis post major surgery. Patient has been afebrile and without pain, excluding possibility of infection. MRSA nasal swab positive. BCx negative after 48h. Surgery, Dr Stein on board. Plan: Cefepime IV 2g Q8h Vancomyocin 1.25g IV per surgery, keep dressings intact, will remove on POD 4 #Diabetes Hold metformin Sliding scale insulin AC Inslun glargine 10u HS weight based basal and bolus insulin regiment #Dysphagia #h/o CVA Patient is oriented to himself only. -ordered speech/swallow eval Patient placed on dysphagia 2 diet. #Hypertension BP has been 150-164/70-85 during the past 24h Pt started on lisinopril PO 40mg Qday #Hyperlipidemia Hold home meds for chornic conditions until after surgery Health maintenance Lines: PIV Diet: NPO Bowel: Senna GI Prophylaxis: Zofran DVT Prophylaxis: Heparin (hold for surgery) Disposition: Left foot osteomyelitis per surgery rec left foot amputation in the morning Code status: Full code This case was discussed with my attending physician, Dr. Jones. Kathleen Wilson, DO PGY I Attending Provider Attestation/Addendum I have discussed and was present for the essential components of the history, physical examination, diagnosis, and treatment plan with the resident. I agree with the patient's care as documented by the resident and amended herein by me. Omid Jones DO. Although this document has been carefully reviewed, there may still be some phonetic and other typographical errors. These errors are purely grammatical due to imperfections in the software program and should not be construed in any way to compromise the substance of the patient's medical care during this visit. Patient seen and evaluated this AM. In Short, patient is 74-year-old male coming from assisted living facility with significant past medical history of DM2 HLD, CKD depression, for past CVA CAD who presented with a left foot wound likely secondary to diabetes and severe PAD. Patient has been evaluated by vascular surgery in the past however on this admission it was recommended by general surgery for a left BKA due to osteomyelitis and gangrene that was extensive. Patient now postop day 3 from left BKA, per surgery recommendations, antibiotics can be discontinued. Dressing change will occur tomorrow. Likely discharge in 1 to 2 days to SNF most likely pending specialist recommendations.
[2025-02-23] MEDS: INSULIN GLARGINE (Lantus) 5 UNIT/0.05 ML (PER 5 UNITS) 10 UNIT SC (20:07)
[2025-02-24] VITALS (7 sets, daily range): BP systolic 133–152; BP diastolic 60–88; PULSE 61–113; RESP 17–25; TEMP 35.9–36.2; O2SAT 93–99
[2025-02-24] MEDS: CEFEPIME INJ 2 GM in SODIUM CHLORIDE 0.9% (Popper) 50 ML IV ×2 (05:19→14:27)
[2025-02-24 05:54] LABS: Basophils # (Auto) 0.0 Thou/mm3 (0.0-0.2); Basophils % (Auto) 0 % (0-2.5); Eosinophils # (Auto) 1.3 Thou/mm3 (0.0-0.5); Eosinophils % (Auto) 11 % (0-10); Hematocrit 24.7 % (41.0-53.0); Immature Granulocytes Auto 0.17 Thou/mm3 (0.00-0.00); Lymphocytes # (Auto) 2.0 Thou/mm3 (1.0-4.8); Lymphocytes % (Auto) 16 % (10-50); Mean Corpuscular HGB Conc 32.4 g/dl (31.0-37.0); Mean Corpuscular Hemoglobin 24.6 pg (25.0-35.0); Mean Corpuscular Volume 76 fL (80-100); Monocytes # (Auto) 1.2 Thou/mm3 (0.0-0.8); Monocytes % (Auto) 10 % (0-12); Neutrophils # (Auto) 7.6 Thou/mm3 (1.8-7.7); Neutrophils % (Auto) 62 % (37-80); Nucleated Red Blood Cell # 0.00 Thou/mm3 (0.00-0.00); Nucleated Red Blood Cell % 0 /100 WBC (0); Platelet Count 334 Thou/mm3 (140-440); RDW Standard Deviation 42.1 fL (35.1-43.9); Red Blood Count 3.25 Miln/mm3 (4.50-5.90); White Blood Count 12.2 Thou/mm3 (3.8-10.6)
[2025-02-24 06:10] LABS: Hemoglobin 8.0 g/dL (13.5-16.0)
[2025-02-24 06:29] LABS: Alanine Aminotransferase < 7 U/L (10-49); Albumin, Serum 3.2 gm/dL (3.4-4.8); Albumin/Globulin Ratio 1.0 (1.2-2.2); Alkaline Phosphatase 72 U/L (46-116); Anion Gap 12 (7-16); Aspartate Amino Transferase < 8 U/L (0-34); BUN/Creatinine Ratio 19 Ratio (12-20); Bilirubin,Total 0.2 mg/dL (0.3-1.2); Blood Urea Nitrogen 21 mg/dL (9-23); Calcium 8.5 mg/dL (8.3-10.6); Calcium (Corrected) 9.1 mg/dL (8.5-10.1); Carbon Dioxide 23.5 mMol/L (20.0-31.0); Chloride 105 mMol/L (98-107); Creatinine (Component) 1.1 mg/dL (0.6-1.3); Estimated Creatinine Clearance 63.7 mL/min (>60); Globulin 3.1 gm/dL (2.3-3.5); Glucose 222 mg/dL (74-106); Magnesium 1.3 mg/dL (1.6-2.6); Osmolality,Calculated 289 (275-295); Phosphorous 2.6 mg/dL (2.4-5.1); Potassium 3.5 mMol/L (3.4-5.1); Sodium 140 mMol/L (136-145); Total Protein 6.3 gm/dL (5.7-8.2); eGFR > 60 See Note
[2025-02-24] MEDS: ZINC SULFATE 220 MG CAPSULE PO (08:57)
[2025-02-24] MEDS: TAMSULOSIN HCL 0.4 MG CAPSULE PO (08:57)
[2025-02-24] MEDS: INSULIN LISPRO (AdmeLOG) 1 UNIT/0.01 ML UNIT SC ×2 (08:58→12:05)
[2025-02-24] MEDS: DOCUSATE SOD 100 MG CAPSULE PO (08:58)
[2025-02-24] MEDS: ASCORBIC ACID 250 MG TABLET 500 MG PO (08:58)
[2025-02-24] MEDS: Magnesium Sulfate 4 GM Ivpb 4 GM/50 ML BAG IV (09:02)
[2025-02-24 10:19] LABS: Vancomycin,Trough 19.4 mcg/mL (5.0-10.0)
--- NOTE | 2025-02-24 11:58 | PD.SURPROG ---
Documentation for date of: 02/24/25 Subjective Subjective Narrative: Patient seen and examined. He is resting comfortably, pain is controlled Exam Vital Signs Temp Pulse Resp BP Pulse Ox O2 Del Method O2 Flow Rate 97.2 F 76 20 133/88 H 98 Room Air 2 02/24/25 08:00 02/24/25 08:57 02/24/25 08:00 02/24/25 08:57 02/24/25 08:00 02/24/25 08:00 02/20/25 15:30 Constitutional Constitutional: no acute distress Routine Extremities Exam Comments: Left BKA stump is clean, dry and intact without drainage or bleeding Assessment & Plan Assessment Additional comments: Status post left BKA Plan Patient can be discharged when stump protector was applied. Follow-up with Dr Stein in 3 weeks PROCEDURES: Procedures Left below the knee amputation
[2025-02-24] MEDS: VANCOMYCIN/WATER 1250 MG IVPB 250 ML 120 MG IV (12:02)
--- NOTE | 2025-02-24 15:59 | PC.SS ---
SS update: bedside nurse informed STRAIGHTENING PRESS OPERATOR HELPER that patient has received knee protector, STRAIGHTENING PRESS OPERATOR HELPER informed bedside nurse that d/c is for today. Doctor spoke to STRAIGHTENING PRESS OPERATOR HELPER and stated patient is ready for d/c. STRAIGHTENING PRESS OPERATOR HELPER spoke to [facility] [place], staff confirmed patient arrival, STRAIGHTENING PRESS OPERATOR HELPER will follow up with ETA.
--- NOTE | 2025-02-24 16:20 | PC.SS ---
SS update: BOARD CERTIFIED ORTHODONTIST coordinated transportation for patient ETA is 1800. BOARD CERTIFIED ORTHODONTIST informed staff at [facility]. BOARD CERTIFIED ORTHODONTIST informed bedside nurse.
--- NOTE | 2025-02-24 16:27 | PC.NURSE ---
Attempted to call report to SNF nurse, left message.
--- NOTE | 2025-02-24 16:54 | PC.NURSE ---
Called in report to Usha at [facility] nurse Christi.
--- NOTE | 2025-02-24 20:13 | ESDS_ITS ---
Planned Discharge Date 02/24/25 DS: Providers Provider Date of admission: 02/19/25 00:17 Primary care physician: Korina Howell MD Admitting Provider: Carroll Donaldson MD Attending Provider on Admission: Carroll Donaldson MD Consults: 02/18/25 12:03 Referral Wound Care Stat Comment: 02/18/25 23:47 Consult to General Surgery Stat Comment: Left foot osteomyelitis necrotic tissue Consulting Provider: Mo Stein 02/22/25 08:28 Referral Speech Therapy Routine Comment: Attending Provider on DC: Ignacio Feliz MD Discharging Provider: Ignacio Feliz MD DS: Diagnosis Problem List Completed Was Problem List Reviewed/Reconciled?: Yes Hospital Course Hospital Course Hospital course: Bryan Álvarez is a 74-year-old male coming from an assisted living facility with history of CKD, T2DM, hyperlipidemia, depression, CVA, CAD, PAD status post stent in femoral artery who was brought in on 02/18/2025 for gangrenous foot with a nonhealing deep dorsal ulcer. Patient had been assessed by vascular surgery before, but on this admission General Surgery recommended below-knee amputation for extensive osteomyelitis and gangrene of the left foot. Patient presented with leukocytosis 15.5 on the day of admission and wound cultures were positive for gram-negative rods Morganella and Klebsiella. Patient was placed on cefepime 2 g every 8 hours and vancomycin 1.25 g daily from presentation until 3 days after the surgery. WBC peaked to 14.5 on postop day 3 and trended down to 12.2 the following day. Patient has been afebrile and has not felt pain at the site of the surgery. In the context of dysphagia secondary to prior CVA, patient has been placed on mechanically altered diet. To control bleeding diathesis post-operatively and in the setting of operative blood loss anemia and low hemoglobin, patient has been unsuitable for anticoagulant therapy, eg, DVT prophylaxis. However, Pt is being discharged with daily aspirin 81mg to be taken orally. At the point of discharge, Patient is medically stable and deemed safe to return to his/her previous state of living. Imaging: CTA R LE: 70% stenosis distal right superficial femoral artery. Severe multiple occlusions of the right anterior tibial posterior tibial and main continuation trunk. CTA L LE: 50% stenosis mid left superficial femoral artery, 90% stenosis distal left superficial femoral artery at its junction with the popliteal artery. Foot x-ray left: Severe obstructive disease trifurcation arteries below. Osteomyelitis fifth metatarsal and proximal phalanx fifth digit. US arterial duplex: Severe bilateral peripheral obstructive arterial disease Admission diagnoses: #Left foot osteomyelitis #Left foot gangrene #Uncomplicated left BKA #Diabetes #Dysphagia #h/o CVA #Hypertension #Hyperlipidemia Discharge instructions: * Follow-up with PCP within 1-2 weeks of discharge. * Follow-up with general surgery, Dr. Stein, within 3 weeks of discharge. * Continue taking ASPIRIN 81 mg daily. * Continue taking medications as prescribed below. * Return to Emergency Room if symptoms persist, worsen, or new symptoms develop. This case was discussed with my attending physician, Dr. Feliz. Kathleen Wilson, DO PGY I Time Spent with Patient Time attestation: Total time spent providing and/or coordinating discharge services: Time spent: Greater than 30 minutes Exam Vital Signs Temp Pulse Resp BP Pulse Ox O2 Del Method O2 Flow Rate 97.2 F 113 H 25 H 140/73 H 93 L Room Air 2 02/24/25 16:00 02/24/25 16:43 02/24/25 16:43 02/24/25 16:00 02/24/25 16:43 02/24/25 16:00 02/20/25 15:30 Narrative Exam GENERAL: Pt is not amenable to conversation. AOx1. HEENT: Normocephalic, atraumatic and nontender.? Pupils are equal and reactive to light and accommodation.? Oral mucosa are moist. NECK: Supple without adenopathy. Traquea midline. Nontender, carotid pulse 2+ bilaterally without bruits, no JVD.? CHEST: Heart rate and rythm normal, no murmurs, gallops auscultated. S1 & 2 normal insensity. Nontender on palpation, no deformity and no crepitus. LUNGS: Nasal cannula. Lung sounds are clear.? No wheezing, rales or ronchi.? No intercostal subcostal retraction. Room air ABDOMEN: Soft,symmetric , nontender, no guarding or rebound tenderness. No abnormal masses palpated.? No pulsatile masses or bruits.? Bowel sounds are normoactive in all 4 quadrants. No Mcclellan EXTREMITIES: Rt forefoot amputated. Lt BKA. Nontender.? No pitting edema.? No cyanosis.? Patient is able to move all 4 extremities. SKIN: No rashes noted. NEURO: Sensation intact in lower extremities. Left BKA stump is clean, dry and intact without drainage or bleeding Discharge Plan Plan Patient Disposition: Xfer Skilled Nsg Fac (SNF) Patient condition on transfer: Stable Care Plan Goals: * Follow-up with PCP within 1-2 weeks of discharge. * Follow-up with general surgery, Dr. Stein, within 3 weeks of discharge. * Continue taking ASPIRIN 81 mg daily. * Continue taking medications as prescribed below. * Return to Emergency Room if symptoms persist, worsen, or new symptoms develop. Prescriptions/Referrals Prescriptions/Med Rec: Continued hydrocodone-acetaminophen 5-325 mg Tablet 1 tab PO Q4H PRN (Reason: Severe Pain (Scale Score 7-10)) magnesium hydroxide [Milk of Magnesia] 400 mg/5 mL Suspension 30 ml PO Q24H PRN (Reason: Constipation) triamcinolone acetonide [Nasacort Allergy] 55 mcg Aerosol,Ophiem 1 spray INTRANASAL QDAY PRN (Reason: Allergy Symptoms) Rx Instructions: administer into each nostril lisinopril 40 mg Tablet 40 mg PO QDAY aspirin 81 mg tablet 81 mg PO QDAY ferrous sulfate [Feosol] 325 mg (65 mg iron) tablet 325 mg PO QDAY sucralfate [Carafate] 1 gram tablet 1 g PO TID finasteride 5 mg Tablet 5 mg PO QDAY cholecalciferol (vitamin D3) 25 mcg (1,000 unit) Tablet 25 mcg PO QDAY latanoprost 0.005 % Drops 1 drp OPHTHALMIC (EYE) HS Rx Instructions: BOTH EYES labetalol 100 mg Tablet 50 mg PO BID Rx Instructions: Hold if SBP <90 or HR <60 trazodone 50 mg Tablet 50 mg PO QHSPRN PRN (Reason: INABILITY TO REST/INSOMIA) Rx Instructions: GIVE 1-2 TABLETS QHS FOR INSOMIA PRN tamsulosin 0.4 mg Capsule 0.8 mg PO QDAY timolol maleate 0.25 % Drops 1 drp OPHTHALMIC (EYE) QDAY Rx Instructions: BOTH EYES pantoprazole 40 mg Tablet,Delayed Release (Dr/Ec) 40 mg PO TID metformin 1,000 mg Tablet 1,000 mg PO BID sertraline 50 mg Tablet 50 mg PO QDAY alum-mag hydroxide-simeth [Mylanta Maximum Strength] 400-400-40 mg/5 mL Suspension 20 ml PO [id number] PRN (Reason: Heartburn) atorvastatin 40 mg Tablet 40 mg PO HS gabapentin 100 mg Capsule 200 mg PO TID insulin NPH and regular human 100 unit/mL (70-30) Suspension 15 unit SUBCUT BID Rx Instructions: Hold for blood glucose <130 Multiple Vitamin-Minerals Tablet 1 tab PO QDAY acetaminophen [Tylenol] 325 mg Tablet 650 mg PO Q4HR PRN (Reason: ELEVATED TEMPERATURE) ondansetron HCl 4 mg Tablet 4 mg PO Q6H PRN (Reason: NAUSEA/EMESIS) dextromethorphan-guaifenesin 10-100 mg/5 mL Syrup 10 ml PO Q4H PRN (Reason: Cough) Referrals: Korina Howell MD [Primary Care Provider] - Patient/Caregiver Discharge Instructions Education Materials: A1C, Amputation What to Expect After, Preventing Surgical Site Infections, Diabetes Care Ch, Diabetes Coping Ch Print Language: Mongolian Stand Alone Forms: Kaci Award Info., Patient Portal Info Letter Discharge Order Discharge Orders: Discharge (Routine); Ordered 02/24/25 Ordered By: Juan José Katz Quality Discharge Quality Measures none MD Attestestation MD Attestation I discussed with and supervised the resident physician who took care of this patient. I agree with the assessment and discharge plan as above. Follow-up with PCP as scheduled. Return to the emergency room for recurrent symptoms.
== END 2025-02-24 17:15 | disposition skilled nursing facility (03) | DRG 240 ==
LOC: SERX 23:57 → SERHOLD 02-19 01:32 → S3NX 02-19 01:54
PROVIDERS: Physician Assistant Medical; Surgery; Admitting Provider Student in an Organized Health Care Education/Training Program; Emergency Provider Emergency Medicine; PCP Hospitalist; Visit Provider Internal Medicine
PROC: (CPT 27880; principal; 2025-02-20 14:30)
DX: E11.52 Type 2 diabetes mellitus with diabetic peripheral angiopathy with gangrene (principal); I69.354 Hemiplegia and hemiparesis following cerebral infarction affecting left non-dominant side; I70.262 Atherosclerosis of native arteries of extremities with gangrene, left leg; M86.172 Other acute osteomyelitis, left ankle and foot; E11.621 Type 2 diabetes mellitus with foot ulcer; E11.69 Type 2 diabetes mellitus with other specified complication; E78.5 Hyperlipidemia, unspecified; N18.9 Chronic kidney disease, unspecified; I12.9 Hypertensive chronic kidney disease with stage 1 through stage 4 chronic kidney disease, or unspecified chronic kidney disease; F32.A Depression, unspecified; Z79.84 Long term (current) use of oral hypoglycemic drugs; E11.22 Type 2 diabetes mellitus with diabetic chronic kidney disease; L97.529 Non-pressure chronic ulcer of other part of left foot with unspecified severity; E11.65 Type 2 diabetes mellitus with hyperglycemia; I25.10 Atherosclerotic heart disease of native coronary artery without angina pectoris; D69.9 Hemorrhagic condition, unspecified; I69.391 Dysphagia following cerebral infarction; Z89.421 Acquired absence of other right toe(s); E55.9 Vitamin D deficiency, unspecified; Z79.4 Long term (current) use of insulin; Z79.82 Long term (current) use of aspirin; Z79.899 Other long term (current) drug therapy; B96.1 Klebsiella pneumoniae [K. pneumoniae] as the cause of diseases classified elsewhere
CPT/HCPCS: 36415; 73630; 73706; 80048; 80053; 80202; 81001; 83036; 83605; 83735; 84100; 85025; 85049; 85610; 85730; 86140; 86850; 86900; 86901; 87040; 87070; 87075; 87077; 87081; 87186; 87205; 92526; 92610; 93922; 94664; 99285; A4217; A4649; J0689; J0692; J0696; J1100; J1644; J1815; J2371; J2704; J2765; J2795; J3010; J3370; J3372; J3373; J3475; J7050; J7120; J7999; Q9967; A9270

== ENCOUNTER 2025-04-08 12:16 | Inpatient (IN) | payer MEDICARE, MEDICAID, SELFPAY ==
[2025-04-08] VITALS (9 sets, daily range): BP systolic 92–151; BP diastolic 58–75; PULSE 56–69; RESP 14–95; TEMP 35.9–36.9; O2SAT 97–100; BMI 23.3
--- NOTE | 2025-04-08 12:24 | XR_ITS ---
Examination: AP chest single view Technique one AP portable upright chest single view Date and time: April 08, 2025 1256 hours, comparison May 29, 2024 INDICATIONS: Sepsis alert today with fever FINDINGS: Left base pneumonia Normal heart size Severe osteopenia No pulmonary edema IMPRESSION: Left base pneumonia
--- NOTE | 2025-04-08 12:24 | EKG_ITS ---
[facility] Test Date: 2025-04-08 Pat Name: XIOMARA ZUÑIGA Department: Room: - Gender: Male Mine Expert: : [id number] Requested By: Abdullahi Wiggins Order Number: [id number] Reading MD: Abdullahi Wiggisn Measurements Intervals [place] Rate: 70 P: -62 MS: 210 QRS: -59 QRSD: 136 T: -21 QT: 419 QTc: 452 Interpretive Statements SINUS RHYTHM WITH FIRST DEGREE AV BLOCK LEFT AXIS DEVIATION [QRS AXIS < -30] RIGHT BUNDLE BRANCH BLOCK [120+ ms QRS DURATION, UPRIGHT V1, 40+ ms S IN I/aVL/V4/V5/V6] Compared to ECG 05/26/2024 21:53:08 First degree AV block now present Left-axis deviation now present Left anterior fascicular block no longer present /store/S0/[id number]
--- NOTE | 2025-04-08 12:25 | PD.EDADULT ---
ED General RME/HPI General Chief complaint: Altered Mental Status Stated complaint: AMS Time Seen by Provider: 04/08/25 12:23 Arrival date/time: 04/08/25 12:16 CC: Increased altered mental status fever HPI patient presents to the ER via EMS who reported soft pressure of 107/60, with a heart rate in the mid 90s. [facility] rehab by the [place] reported fever of 101.5 last night. Patient is a full code with baseline altered mentation. Staff report increased lethargy. Related Data Home Medications ?Medication ?Instructions ?Recorded ?Confirmed aluminum-mag hydroxide-simethicone 20 ml PO [id number] PRN Heartburn 06/14/22 04/08/25 400 mg-400 mg-40 mg/5 mL oral susp (Mylanta Maximum Strength) cholecalciferol (vitamin D3) 25 25 mcg PO QDAY VIT D DEFICIENCY 06/14/22 04/08/25 mcg (1,000 unit) tablet finasteride 5 mg tablet 5 mg PO QDAY 06/14/22 04/08/25 labetalol 100 mg tablet 50 mg PO BID 06/14/22 04/08/25 Held on 04/10/25. Instructions: Resume on 04/17/25. Resume only when you are seen by PCP; you may not need it if it's only for hypertension latanoprost 0.005 % eye drops 1 drp ophthalmic (eye) HS 06/14/22 04/08/25 metformin 1,000 mg tablet 1,000 mg PO BID 06/14/22 04/08/25 pantoprazole 40 mg tablet,delayed 40 mg PO TID 06/14/22 04/08/25 release sertraline 50 mg tablet 50 mg PO QDAY 06/14/22 04/08/25 tamsulosin 0.4 mg capsule 0.8 mg PO QDAY 06/14/22 04/08/25 timolol maleate 0.25 % eye drops 1 drp ophthalmic (eye) QDAY 06/14/22 04/08/25 trazodone 50 mg tablet 50 mg PO QHSPRN PRN INABILITY TO 06/14/22 04/08/25 REST/INSOMIA acetaminophen 325 mg tablet 650 mg PO Q4HR PRN ELEVATED 07/19/23 04/08/25 (Tylenol) TEMPERATURE atorvastatin 40 mg tablet 40 mg PO HS 07/19/23 04/08/25 gabapentin 100 mg capsule 200 mg PO TID 07/19/23 04/08/25 insulin human U-100 NPH-regulr 15 unit subcut BID 07/19/23 04/08/25 70-30 mix 100 unit/mL subcutaneous susp multivitamin with minerals 1 tab PO QDAY 07/19/23 04/08/25 (Multiple Vitamin-Minerals tablet) ondansetron HCl 4 mg tablet 4 mg PO Q6H PRN NAUSEA/EMESIS 07/19/23 04/08/25 hydrocodone 5 mg-acetaminophen 325 1 tab PO Q4H PRN Severe Pain 05/28/24 04/08/25 mg tablet (Scale Score 7-10) lisinopril 40 mg tablet 40 mg PO QDAY 05/28/24 04/08/25 magnesium hydroxide 400 mg/5 mL 30 ml PO Q24H PRN Constipation 05/28/24 04/08/25 oral suspension (Milk of Magnesia) triamcinolone acetonide 55 mcg 1 spray intranasal QDAY PRN 05/28/24 04/08/25 nasal spray aerosol (Nasacort Allergy Symptoms Allergy) aspirin 81 mg tablet 81 mg PO QDAY 02/19/25 04/08/25 ferrous sulfate 325 mg (65 mg 325 mg PO QDAY 02/19/25 04/08/25 iron) tablet (Feosol) sucralfate 1 gram tablet (Carafate) 1 g PO TID 02/19/25 04/08/25 benzonatate 100 mg capsule 100 mg PO TID PRN cough 04/08/25 04/08/25 bisacodyl 10 mg rectal suppository 10 mg MS Q48H PRN constipation 04/08/25 04/08/25 (Dulcolax (bisacodyl)) cyanocobalamin (vitamin B-12) 1,000 mcg PO QDAY 04/08/25 04/08/25 1,000 mcg capsule pecqmoal-[id number] 1 applic topical BID 04/08/25 04/08/25 petrolatum topical cream (Cetaphil Moisturizing topical cream) guaifenesin 100 mg/5 mL oral 200 mg PO Q4H PRN cough 04/08/25 04/08/25 liquid (Adult Tussin Chest Congestion) ipratropium 0.5 mg-albuterol 3 mg 3 ml inhalation Q4H PRN shortness 04/08/25 04/08/25 (2.5 mg base)/3 mL nebulization of breath or wheezing soln Previous Rx's ?Medication ?Instructions ?Recorded amlodipine 5 mg tablet 5 mg PO QDAY 1 month #30 tabs 04/10/25 nitrofurantoin 100 mg PO BID 5 days #10 caps 04/10/25 monohydrate/macrocrystals 100 mg capsule Allergies Allergy/AdvReac Type Severity Reaction Status Date / Time No Known Allergies Allergy Verified 02/20/25 15:08 Review of Systems Review of Systems ROS Unobtainable: unobtainable due to mental status Past Medical History Past Medical History NEUROLOGIC: Positive Neurological Disorders, Cerebrovascular Accident and Transient Ischemic Attacks (TIA); Negative Dementia, Alzheimer's Disease, Brain Tumor, Meningitis, Seizures, Epilepsy, Multiple Sclerosis, Cerebral Palsy, Amyotrophic Lateral Sclerosis (ALS/Haley Gehrig's), Guillain-Piketon Syndrome, Spina Bifida, Peripheral Neuropathy, Wilkes's Palsy, Subdural Hematoma, Migraine, Head Trauma, Spinal Cord Injury or Traumatic Brain Injury CARDIAC: Positive Atherosclerotic Heart Disease, Hypercholesterolemia and Hypertension; Negative Cardiac Disorders, Myocardial Infarction, Cardiac Arrhythmia, Atrial Fibrillation, Angina, Heart Murmur, Coronary Artery Disease, Peripheral Vascular Disease, Aneurysm, Congestive Heart Failure, Congenital Heart Disease, Rheumatic Fever, Cardiomyopathy, Edema, Pericarditis, Cellulitis, Deep Vein Thrombosis, Hypotension or Varicose Veins RESPIRATORY: Positive Pneumonia and Tuberculosis; Negative Chronic Obstructive Pulmonary Disease (COPD), Asthma, Bronchitis, Emphysema, Pulmonary Fibrosis, Cystic Fibrosis, Pulmonary Embolism, Pulmonary Edema or Sleep Apnea GASTROINTESTINAL: Positive Gastrointestinal Disorders, Gastroesophageal Reflux Disease and Obesity; Negative Hepatitis, Cirrhosis, Pancreatitis, Celiac Disease, Gall Bladder Disease, Gastrointestinal Bleed, Esophageal Varices, Loera's Esophagus, Colitis, Ulcerative Colitis, Diverticulitis, Diverticulosis, Ulcer, Colorectal Cancer, Irritable Bowel, Crohn's Disease, Obstructive Bowel, Hiatal Hernia or Hemorrhoids GENITOURINARY: Positive Genitourinary Disorders, Renal Disease and Benign Prostatic Hyperplasia; Negative Kidney Stones, Polycystic Kidney Disease, Neurogenic Bladder, Inguinal Hernia, Dialysis or Prostate Cancer REPRODUCTIVE: Negative Testicular Cancer MUSCULOSKELETAL: Negative Musculoskeletal Disorders, Muscular Dystrophy, Myasthenia Gravis, Marfan's Syndrome, Bone Cancer, Arthritis, Rheumatoid Arthritis, Osteoporosis, Degenerative Disk Disease, Gout, Scoliosis, Carpal Tunnel Syndrome, Fibromyalgia, Fractures, Degenerative Joint Disease, Osteomyelitis or Poliovirus ENT: Positive Glaucoma and Blind; Negative Cataracts, Retinal Detachment, Macular Degeneration, Ear Infection, Deafness, Head Trauma or Eye Prosthesis ENDOCRINE: Positive Endocrine Disorders and Diabetes Mellitus Type 2; Negative Diabetes Mellitus Type 1, Hypoglycemia, Lorri's Syndrome, Thurston's Disease, Hyperthyroidism, Hypothyroidism, Parathyroid Disease, Pituitary Disease, Systemic Lupus Erythematosus, Syndrome of Inappropriate Antidiuretic Hormone (SIADH), Adrenal Disease or Graves' Disease HEMATOLOGIC: Positive Blood Disorders and Anemia; Negative Leukemia, Hemophilia, Thalassemia, Sickle Cell Disease or Clotting Problems PSYCHO/SOCIAL: Positive Depression, Anxiety and Post Traumatic Stress Disorder; Negative Psychiatric Problems, Schizophrenia, Recreational Drug Use, Bipolar Disorder, Behavior Problems, Self-Mutilation, Attention Deficit Disorder, Attention Deficit Hyperactivity Disorder or Eating Disorder OTHER HISTORY: Positive Autoimmune Disease, Falls and MRSA; Negative Hospitalization, Down Syndrome, Autism, Developmental Delay, Shingles, Blood Transfusions, Anesthesia Reactions, Organ Transplant, Chemotherapy, Radiation Therapy, Hyperbaric Therapy, VRSA, Vancomycin-Resistant Enterococci, Human Immunodeficiency Virus (HIV), Chicken Pox, Measles, Mumps, Rubella (Sen[place]alese Measles), Pertussis, Clostridium Difficile, Colorectal Cancer, Lung Cancer, Prostate Cancer or Testicular Cancer Family History FAMILY HISTORY: Positive Family Cardiac Disorders; Negative Family Psychiatric Problems, Family Respiratory Disorders, Family Gastrointestinal Problems, Family Cancer, Family Surgery or Family Anesthesia Reaction Surgical History SURGICAL: Negative Cardiac Surgery, Open Heart Surgery, Coronary Artery Bypass Graft, Valve Replacement, Vascular Surgery, Coronary Stent, Cardiac Catheterization, Pacemaker, Angiogram, Auto Implanted Cardiovert Defib, Carotid Endarterectomy, Endocrine Surgery, Thyroidectomy, Ear Surgery, Tympanostomy Tube, Eye Surgery, Nose Surgery, Oral Surgery, Tonsillectomy, Adenoidectomy, Cochlear Implant, Corneal Transplant, Throat Surgery, Abdominal Surgery, Tracheostomy, Gastric Bypass Surgery, Gastrostomy, Bowel Surgery, Nephrectomy, Transurethral Resection, Joint Replacement, Amputation, Open Reduction Internal Fixation, Arthroscopy, Neurologic Surgery, Brain Shunt, Vasectomy or Organ Transplant Social History SMOKING STATUS: Never smoker SECOND HAND EXPOSURE: No ED Exam Narrative Physical exam: [General: Obese not in cot no acute distress Head normocephalic HEENT: Within acceptable limits Neck is supple nontender Chest equal chest rise nontender to palpation Respiratory: Clear to auscultation no wheezes crackles or rubs CV: Rate rhythm is regular no murmurs rubs or clicks Abdomen is distended secondary to body habitus soft nontender no masses positive bowel sounds all 4 quadrants Back: No CVA tenderness no spinous process tenderness from cervical spine thoracic and lumbar spine Skin: Intact no petechiae rash induration ulceration or crepitus Extremities: Moving all extremity against resistance cap refill less than 2 seconds neurosensory intact Neuro: Awake alert oriented x3 Glascow coma 15 no focal deficits] Course Course Course Narrative: Laboratory results show 17,000 leukocytosis with the patient also has renal insufficiency even though it is listed as a chronic diagnosis from the facility where he came. However when he review his BUN and creatinine compared to old ones this is a significant change and I am concerned whether his dehydration versus a chronic kidney disease issue that has not been addressed. At this time patient's case discussed with resident for Dr. Donaldson attending. Will admit the patient for DENICE influenza A positive and pneumonia. Quality Measures none Orders Category Date Time Status Admit to Inpatient Status Routine Admission 04/08/25 15:55 Active Patient Condition Routine Admission 04/08/25 15:55 Ordered Bedside COVID-19 Antigen Test NOW Care 04/08/25 12:28 Completed Bedside Influenza A&B Antigen Test NOW Care 04/08/25 12:28 Completed Body Technician/Painter Q4H START 00 Care 04/08/25 12:24 Completed Continuous Pulse Oximetry STAT Care 04/08/25 12:24 Completed EKG (ED ONLY) *Do not use* NOW Care 04/08/25 12:24 Completed In and Out Catheter X1PRN Care 04/08/25 12:24 Completed Insert IV NOW Care 04/08/25 12:24 Completed Miscellaneous Nursing Order NOW Care 04/08/25 15:58 Completed NPO STAT Care 04/08/25 12:24 Completed Notify provider NEEDED Care 04/08/25 15:55 Completed Nurse Swallow Screen X1 Care 04/08/25 16:01 Completed Strict Intake and Output Routine Care 04/08/25 12:24 Ordered Diet Dysphagia 1- Pureed Diet 04/08/25 Dinner Completed EKG (ED Only) Stat Exams 04/08/25 12:24 Draft XR chest 1V SEPSIS PROTOCOL Stat Exams 04/08/25 12:24 Completed B-Type Natriuretic Peptide Stat Lab 04/08/25 12:55 Completed Blood Culture (Lab) Stat Lab 04/08/25 12:59 Results CBC AM DRAW Lab 04/09/25 04:32 Completed CBC AM DRAW Lab 04/10/25 04:30 Completed CBC Stat Lab 04/08/25 12:55 Completed Comprehensive Metabolic Panel AM DRAW Lab 04/09/25 04:32 Completed Comprehensive Metabolic Panel AM DRAW Lab 04/10/25 04:30 Completed Comprehensive Metabolic Panel Stat Lab 04/08/25 12:55 Completed Hemoglobin A1C [Glycohemoglobin w (eAG)] AM DRAW Lab 04/09/25 04:32 Completed LDH (Lactate Dehydrogenase) Stat Lab 04/08/25 12:55 Completed Lactate (Lactic Acid) Routine Lab 04/08/25 17:56 Completed Lactate (Lactic Acid) Stat Lab 04/08/25 12:55 Completed Lactic Acid, 3 HR Stat Lab 04/08/25 16:08 Completed Lipase Stat Lab 04/08/25 12:55 Completed Magnesium AM DRAW Lab 04/09/25 04:32 Completed Magnesium AM DRAW Lab 04/10/25 04:30 Completed Magnesium Stat Lab 04/08/25 12:55 Completed Partial Thromboplastin Time Stat Lab 04/08/25 12:55 Completed Phosphorous AM DRAW Lab 04/09/25 04:32 Completed Phosphorous AM DRAW Lab 04/10/25 04:30 Completed Phosphorous Stat Lab 04/08/25 12:55 Completed Procalcitonin Stat Lab 04/08/25 12:55 Completed Prothrombin Time with INR Stat Lab 04/08/25 12:55 Completed Troponin I Stat Lab 04/08/25 12:55 Completed Urinalysis, C/S if Indicated Stat Lab 04/08/25 14:50 Completed Urine Culture Stat Lab 04/08/25 14:50 Completed Acetaminophen Tab [Tylenol Tab] Med 04/08/25 15:55 Discontinued 650 mg PO Q6H PRN Aspirin [Ecotrin] Med 04/09/25 09:00 Discontinued 81 mg PO QDAY Atorvastatin Calcium [Lipitor] Med 04/08/25 21:00 Discontinued 40 mg PO HS Finasteride [Proscar] Med 04/09/25 09:00 Discontinued 5 mg PO QDAY Gabapentin Med 04/08/25 22:00 Discontinued 200 mg PO TID HYDROcodone*/APAP 5/325 [[place] 5/325] Med 04/08/25 16:05 Discontinued 1 tab PO Q4H PRN Severe Pain (Scale Score 7-10) Heparin Inj Med 04/08/25 22:00 Discontinued 5,000 unit SC Q8HR Lisinopril [Prinivil] Med 04/09/25 09:00 Discontinued 40 mg PO QDAY Magnesium Sulfate 4 GM Ivpb [Magnesium Sulfate Ivpb] Med 04/08/25 15:57 Discontinued 4 gm in 50 ml IV X1 Ondansetron Odt [Zofran Odt] Med 04/08/25 16:02 Discontinued 4 mg PO Q6H PRN NAUSEA/EMESIS Oseltamivir [Tamiflu] Med 04/08/25 15:57 Discontinued 75 mg PO X1 ONE Ringers Lactated 1000 ml [Lactated Ringers] 1,000 ml Med 04/08/25 12:24 Discontinued IV 999 mls/hr Ringers Lactated 1000 ml [Lactated Ringers] 1,000 ml Med 04/08/25 14:19 Discontinued IV 999 mls/hr Senna [Senokot] Med 04/09/25 09:00 Discontinued 1 tab PO QDAY cefTRIAXone/D5w 1gm IV premix [Rocephin/D5w 1gm IV Med 04/08/25 14:18 Discontinued premix] 1 gm in 50 ml IV X1 Code Status Routine Oth 04/08/25 15:55 Completed Oxygen Delivery NOW RT 04/08/25 12:24 Completed Oxygen Delivery PRN RT 04/08/25 15:55 Completed Vital Signs Vital signs: Vital Signs Temperature 98.4 F 04/08/25 12:20 Pulse Rate 66 04/08/25 12:20 Respiratory Rate 16 04/08/25 12:20 Blood Pressure 111/58 L 04/08/25 12:20 Pulse Oximetry (%) 99 04/08/25 12:20 Oxygen Delivery Method Nasal Cannula 04/08/25 12:20 Oxygen Flow Rate 2 04/08/25 12:20 Discharge Plan Plan Patient Disposition: Admit Acute Care w/in Hospital Patient condition on transfer: Stable Problem List Clinical Impression: Influenza A, Pneumonia, DENICE (acute kidney injury) MDM Clinical Information Provided by patient and EMS Medical Records Reviewed [facility] and EMS Meds/Rx Considered, not Ordered None Labs/Rad/Tests considered, not Ordered None EKG EKG Interpretation narrative: EKG performed at 1249 shows a ventricular rate of 7 0 MS interval 210 QRS of 136 QTc of 439 this is sinus rhythm first-degree block right bundle branch block. Lab Interpretation Lab(s) interpretation(s): CBC shows leukocytosis 17.9 H&H of 8.7 and 27.6 note the anemia is consistent with prior blood draws no thrombocytopenia CMP shows coags within acceptable limits. CMP shows a BUN of 46 creatinine of 1.7 Magnesium 1.3 T. bili of 0.2 Troponin of 0.031 BNP of 246 Lipase of 26 Pro-Dmoinic of 0.25 Influenza A positive Imaging Provider imaging interpretation(s): Chest x-ray as interpreted by radiology possible left lower lobe infiltrate. Medication Administration(s) Medication Administration History Discontinued Medications Acetaminophen (Acetaminophen 325 Mg Tablet) 650 mg PO Q6H PRN PRN Reason: Fever >101.5 and pain 1-3 Stop: 05/08/25 15:54 Hydrocodone Bitart/Acetaminophen (Hydrocodone/Apap 5/325 Tablet) 1 tab PO Q4H PRN PRN Reason: Severe Pain (Scale Score 7-10) Stop: 04/13/25 16:04 Amlodipine Besylate (Amlodipine Besylate 5 Mg Tablet) 5 mg PO QDAY BRADEN Stop: 05/10/25 08:59 Amlodipine Besylate (Amlodipine Besylate 5 Mg Tablet) 5 mg PO X1 ONE Stop: 04/10/25 08:33 Last Admin: 04/10/25 09:37 Dose: 5 mg Documented By: BELINDA Aspirin (Aspirin Ec 81 Mg Tabec) 81 mg PO QDAY BRADEN Stop: 05/09/25 08:59 Last Admin: 04/10/25 09:10 Dose: 81 mg Documented By: Admin: 04/09/25 09:05 Dose: 81 mg Documented By: DENTON Atorvastatin Calcium (Atorvastatin Calcium 20 Mg Tablet) 40 mg PO HS BRADEN Stop: 05/08/25 20:59 Last Admin: 04/09/25 20:50 Dose: 40 mg Documented By: Admin: 04/08/25 23:22 Dose: Not Given Documented By: ADWOA Non-Admin Reason: NPO Dextrose (Dextrose 50%-Water Inj 50 Ml Syringe) 25 ml IV Q15MIN PRN PRN Reason: BG 50-70 responsive npo pt Stop: 05/08/25 16:26 Dextrose (Dextrose 50%-Water Inj 50 Ml Syringe) 50 ml IV Q15MIN PRN PRN Reason: BG <50 OR BG <70 & pt unresponsive Stop: 05/08/25 16:26 Finasteride (Finasteride 5 Mg Tablet) 5 mg PO QDAY [facility] Stop: 05/09/25 08:59 Last Admin: 04/10/25 09:10 Dose: 5 mg Documented By: Admin: 04/09/25 09:05 Dose: 5 mg Documented By: DENTON Gabapentin (Gabapentin 100 Mg Capsule) 200 mg PO TID [facility] Stop: 05/08/25 21:59 Last Admin: 04/10/25 14:07 Dose: 200 mg Documented By: Admin: 04/10/25 05:03 Dose: 200 mg Documented By: Admin: 04/09/25 21:00 Dose: 200 mg Documented By: Admin: 04/09/25 13:34 Dose: 200 mg Documented By: Admin: 04/09/25 05:02 Dose: Not Given Documented By: ADWOA Non-Admin Reason: NPO Admin: 04/08/25 23:23 Dose: Not Given Documented By: ADWOA Non-Admin Reason: NPO Glucagon (Glucagon Inj 1 Mg Vial) 1 mg IM Q15MIN PRN PRN Reason: BG <70, and no IV access Heparin Sodium (Porcine) (Heparin Sod Inj 5000 Unit/Ml Vial) 5,000 unit SC Q8HR [facility] Stop: 04/22/25 21:59 Last Admin: 04/10/25 14:07 Dose: 5,000 unit Documented By: BELINDA Co-signed By: ALICE Admin: 04/10/25 05:07 Dose: 5,000 unit Documented By: CAMELIA Co-signed By: DEVORA Admin: 04/09/25 21:01 Dose: 5,000 unit Documented By: CAMELIA Co-signed By: SUSANNE Admin: 04/09/25 13:34 Dose: 5,000 unit Documented By: DENTON Co-signed By: NESTOR Admin: 04/09/25 05:07 Dose: 5,000 unit Documented By: ADWOA Co-signed By: CTF Admin: 04/08/25 23:28 Dose: 5,000 unit Documented By: ADWOA Co-signed By: AILEEN Lactated Ringer's (Lactated Ringers) 1,000 mls @ 999 mls/hr IV .Q1H1M ONE Stop: 04/08/25 13:24 Last Infusion: 04/08/25 14:42 Dose: Infused Documented By: Admin: 04/08/25 13:41 Dose: 999 mls/hr Documented By: NAWAF Ceftriaxone Sodium/Dextrose (Rocephin/D5w 1gm Iv Premix) 1 gm in 50 mls @ 100 mls/hr IV X1 ONE Stop: 04/08/25 14:47 Last Infusion: 04/08/25 15:06 Dose: Infused Documented By: Admin: 04/08/25 14:36 Dose: 100 mls/hr Documented By: TEENA Lactated Ringer's (Lactated Ringers) 1,000 mls @ 999 mls/hr IV .Q1H1M ONE Stop: 04/08/25 15:19 Last Infusion: 04/08/25 15:25 Dose: Infused Documented By: Admin: 04/08/25 14:26 Dose: 999 mls/hr Documented By: TEENA Magnesium Sulfate (Magnesium Sulfate Ivpb) 4 gm in 50 mls @ 12.5 mls/hr IV X1 ONE Stop: 04/08/25 19:56 Last Admin: 04/08/25 16:59 Dose: 12.5 mls/hr Documented By: TEENA Lactated Ringer's (Lactated Ringers) 1,000 mls @ 999 mls/hr IV .Q1H1M ONE Stop: 04/08/25 17:26 Last Admin: 04/08/25 20:00 Dose: 999 mls/hr Documented By: ADWOA Ceftriaxone Sodium/Dextrose (Rocephin/D5w 1gm Iv Premix) 1 gm in 50 mls @ 100 mls/hr IV QDAY BRADEN Stop: 04/16/25 08:59 Last Admin: 04/10/25 09:09 Dose: 100 mls/hr Documented By: Infusion: 04/09/25 09:35 Dose: Infused Documented By: Admin: 04/09/25 09:05 Dose: 100 mls/hr Documented By: DENTON Magnesium Sulfate (Magnesium Sulfate Ivpb) 4 gm in 50 mls @ 12.5 mls/hr IV X1 ONE Stop: 04/10/25 12:37 Last Admin: 04/10/25 10:09 Dose: 12.5 mls/hr Documented By: SHARAD Insulin Human Lispro (Insulin Lispro (Admelog) 1 Unit/0.01 Ml Unit) 0 unit SC ACHS [facility]; Protocol Stop: 05/08/25 16:59 Last Admin: 04/10/25 12:14 Dose: 2 unit Documented By: ALICE Co-signed By: GRISELDA Admin: 04/10/25 07:42 Dose: Not Given Documented By: BELINDA Non-Admin Reason: Per Protocol Admin: 04/09/25 21:01 Dose: 2 unit Documented By: CAMELIA Co-signed By: SUSANNE Admin: 04/09/25 17:44 Dose: 1 unit Documented By: BELINDA Co-signed By: GRACE Admin: 04/09/25 12:11 Dose: 1 unit Documented By: DENTON Co-signed By: GRACE Admin: 04/09/25 07:17 Dose: Not Given Documented By: ADWOA Non-Admin Reason: NPO Admin: 04/08/25 21:21 Dose: Not Given Documented By: ADWOA Non-Admin Reason: NPO Admin: 04/08/25 17:02 Dose: Not Given Documented By: TEENA Non-Admin Reason: Per Protocol Lisinopril (Lisinopril 20 Mg Tablet) 40 mg PO QDAY [facility] Stop: 05/09/25 08:59 Last Admin: 04/10/25 09:10 Dose: 40 mg Documented By: Admin: 04/09/25 09:04 Dose: 40 mg Documented By: DENTON Ondansetron HCl (Ondansetron Odt 4 Mg Tabrap) 4 mg PO Q6H PRN; Protocol PRN Reason: NAUSEA/EMESIS Stop: 05/08/25 16:01 Oseltamivir Phosphate (Oseltamivir 75 Mg Capsule) 75 mg PO X1 ONE Stop: 04/08/25 15:58 Last Admin: 04/09/25 07:17 Dose: Not Given Documented By: ADWOA Non-Admin Reason: NPO Oseltamivir Phosphate (Oseltamivir 30 Mg Capsule) 30 mg PO BID [facility] Stop: 04/13/25 21:01 Last Admin: 04/10/25 09:09 Dose: 30 mg Documented By: Admin: 04/09/25 20:50 Dose: 30 mg Documented By: ACMELIA Oseltamivir Phosphate (Oseltamivir 75 Mg Capsule) 75 mg PO X1 ONE Stop: 04/09/25 08:31 Last Admin: 04/09/25 09:04 Dose: 75 mg Documented By: DENTON Potassium Chloride (Potassium Chloride 10% 20 Meq/15 Ml Udc) 40 meq PO X1 ONE Stop: 04/09/25 08:34 Last Admin: 04/09/25 09:06 Dose: 40 meq Documented By: DENTON Sennosides (Senna Tablet) 1 tab PO QDAY BRADEN; Protocol Stop: 05/09/25 08:59 Last Admin: 04/10/25 09:09 Dose: 1 tab Documented By: Admin: 04/09/25 09:04 Dose: 1 tab Documented By: DENTON Trazodone HCl (Trazodone Hcl 50 Mg Tablet) 50 mg PO HS PRN PRN Reason: INSOMNIA Stop: 05/08/25 17:01
[2025-04-08 13:06] LABS: Lactate (Lactic Acid) 2.8 mMol/L (0.4-2.0)
[2025-04-08 13:08] LABS: Basophils # (Auto) 0.0 Thou/mm3 (0.0-0.2); Basophils % (Auto) 0 % (0-2.5); Eosinophils # (Auto) 0.0 Thou/mm3 (0.0-0.5); Eosinophils % (Auto) 0 % (0-10); Hematocrit 27.6 % (41.0-53.0); Immature Granulocytes Auto 0.12 Thou/mm3 (0.00-0.00); Lymphocytes # (Auto) 1.6 Thou/mm3 (1.0-4.8); Lymphocytes % (Auto) 9 % (10-50); Mean Corpuscular HGB Conc 31.5 g/dl (31.0-37.0); Mean Corpuscular Hemoglobin 25.4 pg (25.0-35.0); Mean Corpuscular Volume 81 fL (80-100); Monocytes # (Auto) 1.3 Thou/mm3 (0.0-0.8); Monocytes % (Auto) 7 % (0-12); Neutrophils # (Auto) 14.8 Thou/mm3 (1.8-7.7); Neutrophils % (Auto) 83 % (37-80); Nucleated Red Blood Cell # 0.00 Thou/mm3 (0.00-0.00); Nucleated Red Blood Cell % 0 /100 WBC (0); Platelet Count 234 Thou/mm3 (140-440); RDW Standard Deviation 51.9 fL (35.1-43.9); Red Blood Count 3.42 Miln/mm3 (4.50-5.90); White Blood Count 17.9 Thou/mm3 (3.8-10.6)
[2025-04-08 13:28] LABS: INR 1.1 (0.9-1.3); Partial Thromboplastin Time 27.4 Seconds (22.0-36.0); Prothrombin Time 12.4 Seconds (9.0-12.2)
[2025-04-08 13:29] LABS: B-Type Natriuretic Peptide 246 pg/mL (0-100)
[2025-04-08 13:39] LABS: Alanine Aminotransferase 7 U/L (10-49); Albumin, Serum 3.5 gm/dL (3.4-4.8); Albumin/Globulin Ratio 1.2 (1.2-2.2); Alkaline Phosphatase 87 U/L (46-116); Anion Gap 12 (7-16); Aspartate Amino Transferase 14 U/L (0-34); BUN/Creatinine Ratio 27 Ratio (12-20); Bilirubin,Total 0.2 mg/dL (0.3-1.2); Blood Urea Nitrogen 46 mg/dL (9-23); Calcium 9.5 mg/dL (8.3-10.6); Calcium (Corrected) 9.9 mg/dL (8.5-10.1); Carbon Dioxide 25.8 mMol/L (20.0-31.0); Chloride 103 mMol/L (98-107); Creatinine (Component) 1.7 mg/dL (0.6-1.3); Globulin 3.0 gm/dL (2.3-3.5); Glucose 210 mg/dL (74-106); Hemoglobin 8.7 g/dL (13.5-16.0); LDH (Lactate Dehydrogenase) 152 U/L (120-246); Lipase 26 U/L (12-53); Magnesium 1.3 mg/dL (1.6-2.6); Osmolality,Calculated 299 (275-295); Phosphorous 3.3 mg/dL (2.4-5.1); Potassium 4.1 mMol/L (3.4-5.1); Procalcitonin 0.25 ng/ml (0.0-0.49); Sodium 141 mMol/L (136-145); Total Protein 6.5 gm/dL (5.7-8.2); Troponin I 0.031 ng/mL (0.0-0.045); eGFR 42 See Note
[2025-04-08] MEDS: RINGERS LACTATED 1000 ML 1,000 ML 999 ML IV ×3 (13:41→20:00)
[2025-04-08] MEDS: cefTRIAXone/D5w 1gm IV premix 1 GM/50 ML BAG IV (14:36)
[2025-04-08 14:58] LABS: Collection Type, Urine Clean Catch
[2025-04-08 15:16] LABS: Bacteria,Urine 4+; Bilirubin,Urine Negative (Negative); Blood,Urine 1+ (Negative); Clarity,Urine Turbid (Clear/Hazy); Color,Urine Yellow (Lt Yel-Yel); Glucose, Urine Negative (Negative); Hyaline Casts,Urine < 1 /hpf (0-1); Ketones,Urine Negative (Negative); Leukocyte Esterase,Urine Positive (Negative); Nitrite,Urine Negative (Negative); PH,Urine 5.5 (5.0-7.0); Protein,Urine 1+ (Neg - Trace); RBC,Urine 6 /hpf (0-3); Specific Gravity,Urine 1.021 (1.001-1.035); Squamous Epithelial Cell,Urine < 1 /hpf (0-5); Urobilinogen,Urine Negative mg/dL (0.0-1.0); WBC,Urine 57 /hpf (0-5)
[2025-04-08 15:37] LABS: Culture Indicated,Urine Yes
[2025-04-08 16:03] LABS: Reflex Lactate? Y
--- NOTE | 2025-04-08 16:13 | PD.RESHP ---
Documentation for date of: 04/08/25 HPI History of Present Illness History of present illness: Patient is a 74-year-old male with past medical history of NIDDM2 with neuropathy, nephropathy, right eye blindness, left above the ankle amputation, CVA, dysphagia, HLD, HTN, major depressive disorder, who presented from [facility] on 04/08 for 1 day history of fever and lethargy. Patient is alert and oriented x 3 on exam however was very lethargic and not cooperative with some questions. History was limited as a result of confusion and lethargy. Patient does not use oxygen at facility. Denies chest pain, cough, nausea, vomiting, or back pain. Of note, patient has contracted left upper extremity, not noted in patient's medical records. He has history of CVA but noted to have no neurologic deficits. Per records, is able to tolerate pur?ed diet. Unable to reach facility staff in order to determine patient's baseline. ED Course: -Initial vitals: BP 111/58, HR 6 6, RR 16, temp 98.4, 99% on 2 L nasal cannula -Labs: WBC 17.9, hemoglobin 8.7, BUN 46, creatinine 1.7, GFR 42, glucose 210, lactic acid 2.8, magnesium 1.3, BNP 246. Lipase, Pro-Dominic, troponin, LDH all within normal limits. UA was positive for leukocyte esterase, negative nitrites, 57 WBC, 6 RBC, bacteria 4+. Influenza A and B negative. EKG shows sinus rhythm with RBBB. -Imaging included CXR shows left base pneumonia. -In the ED, patient was given LR 1 L bolus x 2, IV ceftriaxone 1 g x 1. -Patient was admitted for sepsis secondary to influenza. Review of Systems Review of systems otherwise negative except what is mentioned above. Past Medical History: As above. Family History: History of ischemic heart disease and other diseases of the circulatory system Surgical History: Left above the ankle amputation (01/2025), right foot multiple toe amputations Social History: Denies history of smoking, denies current alcohol use, denies recreational drug use Current Medications: ASA 81 daily, trazadone 50 mg prn HS, insulin NPH/regular 70-30, lisinopril 40 mg daily, norco 5 prn, milk of magnesia, zofran prn (Source: med list from rehab) Allergies: No known drug allergies Exam Vital Signs Temp Pulse Resp BP Pulse Ox O2 Del Method O2 Flow Rate 98.4 F 63 19 137/68 H 99 Nasal Cannula 2 04/08/25 12:20 04/08/25 14:54 04/08/25 14:54 04/08/25 14:54 04/08/25 14:54 04/08/25 14:54 04/08/25 14:54 Narrative Exam Physical Exam General: Awake and in no acute distress. Appears confused, however to appropriately answer some questions. Lethargic. Intermittently staring into space. HEENT: Normocephalic, atraumatic, mucous membranes moist. Missing teeth. Heart: Regular rate and rhythm, normal S1 and S2, no murmurs. Lungs: Clear to auscultation with no wheezing or crackles. Abdomen: Soft, nondistended, nontender, positive bowel sounds. No guarding or rebound tenderness. Neurologic: Unable to assess as patient was not compliant with instructions/questions. Extremities: No edema. Above ankle amputation of left foot. Skin: No rash or ecchymoses. Results: Labs 04/09/25 04:32 04/09/25 04:32 Labs: Short CBC 04/08/25 Range/Units 12:55 WBC 17.9 H (3.8-10.6) Thou/mm3 Hgb 8.7 L (13.5-16.0) g/dL Hct 27.6 L (41.0-53.0) % Plt Count 234 (140-440) Thou/mm3 BMP 04/08/25 12:55 Sodium 141 Potassium 4.1 Chloride 103 Carbon Dioxide 25.8 BUN 46 H Creatinine 1.7 H Glucose 210 H Calcium 9.5 Cardiac Enzymes 04/08/25 Range/Units 12:55 Troponin I 0.031 (0.0-0.045) ng/mL Liver Function 04/08/25 Range/Units 12:55 Total Bilirubin 0.2 L (0.3-1.2) mg/dL AST 14 (0-34) U/L ALT 7 L (10-49) U/L Alkaline Phosphatase 87 (46-116) U/L Albumin 3.5 (3.4-4.8) gm/dL Urine 04/08/25 Range/Units 14:50 Urine Color Yellow (Lt Yel-Yel) Urine Clarity Turbid A (Clear/Hazy) Urine pH 5.5 (5.0-7.0) Ur Specific [place] 1.021 (1.001-1.035) Urine Protein 1+ A (Neg - Trace) Urine Glucose (UA) Negative (Negative) Quality Measures Quality Measures VTE prophylaxis Advance care planning discussed with:: patient Medications Home Medications and Allergies Home Medications ?Medication ?Instructions ?Recorded ?Confirmed ?Type aluminum-mag hydroxide-simethicone 20 ml PO [id number] PRN Heartburn 06/14/22 04/08/25 History 400 mg-400 mg-40 mg/5 mL oral susp (Mylanta Maximum Strength) cholecalciferol (vitamin D3) 25 25 mcg PO QDAY VIT D DEFICIENCY 06/14/22 04/08/25 History mcg (1,000 unit) tablet finasteride 5 mg tablet 5 mg PO QDAY 06/14/22 04/08/25 History labetalol 100 mg tablet 50 mg PO BID 06/14/22 04/08/25 History latanoprost 0.005 % eye drops 1 drp ophthalmic (eye) HS 06/14/22 04/08/25 History metformin 1,000 mg tablet 1,000 mg PO BID 06/14/22 04/08/25 History pantoprazole 40 mg tablet,delayed 40 mg PO TID 06/14/22 04/08/25 History release sertraline 50 mg tablet 50 mg PO QDAY 06/14/22 04/08/25 History tamsulosin 0.4 mg capsule 0.8 mg PO QDAY 06/14/22 04/08/25 History timolol maleate 0.25 % eye drops 1 drp ophthalmic (eye) QDAY 06/14/22 04/08/25 History trazodone 50 mg tablet 50 mg PO QHSPRN PRN INABILITY TO 06/14/22 04/08/25 History REST/INSOMIA acetaminophen 325 mg tablet 650 mg PO Q4HR PRN ELEVATED 07/19/23 04/08/25 History (Tylenol) TEMPERATURE atorvastatin 40 mg tablet 40 mg PO HS 07/19/23 04/08/25 History gabapentin 100 mg capsule 200 mg PO TID 07/19/23 04/08/25 History insulin human U-100 NPH-regulr 15 unit subcut BID 07/19/23 04/08/25 History 70-30 mix 100 unit/mL subcutaneous susp multivitamin with minerals 1 tab PO QDAY 07/19/23 04/08/25 History (Multiple Vitamin-Minerals tablet) ondansetron HCl 4 mg tablet 4 mg PO Q6H PRN NAUSEA/EMESIS 07/19/23 04/08/25 History hydrocodone 5 mg-acetaminophen 325 1 tab PO Q4H PRN Severe Pain 05/28/24 04/08/25 History mg tablet (Scale Score 7-10) lisinopril 40 mg tablet 40 mg PO QDAY 05/28/24 04/08/25 History magnesium hydroxide 400 mg/5 mL 30 ml PO Q24H PRN Constipation 05/28/24 04/08/25 History oral suspension (Milk of Magnesia) triamcinolone acetonide 55 mcg 1 spray intranasal QDAY PRN 05/28/24 04/08/25 History nasal spray aerosol (Nasacort Allergy Symptoms Allergy) aspirin 81 mg tablet 81 mg PO QDAY 02/19/25 04/08/25 History ferrous sulfate 325 mg (65 mg 325 mg PO QDAY 02/19/25 04/08/25 History iron) tablet (Feosol) sucralfate 1 gram tablet (Carafate) 1 g PO TID 02/19/25 04/08/25 History benzonatate 100 mg capsule 100 mg PO TID PRN cough 04/08/25 04/08/25 History bisacodyl 10 mg rectal suppository 10 mg [place] Q48H PRN constipation 04/08/25 04/08/25 History (Dulcolax (bisacodyl)) cyanocobalamin (vitamin B-12) 1,000 mcg PO QDAY 04/08/25 04/08/25 History 1,000 mcg capsule yotpiurn-nesqxbszptf-lnnid 1 applic topical BID 04/08/25 04/08/25 History petrolatum topical cream (Cetaphil Moisturizing topical cream) guaifenesin 100 mg/5 mL oral 200 mg PO Q4H PRN cough 04/08/25 04/08/25 History liquid (Adult Tussin Chest Congestion) ipratropium 0.5 mg-albuterol 3 mg 3 ml inhalation Q4H PRN shortness 04/08/25 04/08/25 History (2.5 mg base)/3 mL nebulization of breath or wheezing soln Allergies Allergy/AdvReac Type Severity Reaction Status Date / Time No Known Allergies Allergy Verified 02/20/25 15:08 Visit Medications Acetaminophen (Acetaminophen 325 Mg Tablet) 650 mg PO Q6H PRN PRN Reason: Fever >101.5 and pain 1-3 Stop: 05/08/25 15:54 Hydrocodone Bitart/Acetaminophen (Hydrocodone/Apap 5/325 Tablet) 1 tab PO Q4H PRN PRN Reason: Severe Pain (Scale Score 7-10) Stop: 04/13/25 16:04 Aspirin (Aspirin Ec 81 Mg Tabec) 81 mg PO QDAY BRADEN Stop: 05/09/25 08:59 Atorvastatin Calcium (Atorvastatin Calcium 20 Mg Tablet) 40 mg PO HS BRADEN Stop: 05/08/25 20:59 Finasteride (Finasteride 5 Mg Tablet) 5 mg PO QDAY BRADEN Stop: 05/09/25 08:59 Gabapentin (Gabapentin 100 Mg Capsule) 200 mg PO TID BRADEN Stop: 05/08/25 21:59 Heparin Sodium (Porcine) (Heparin Sod Inj 5000 Unit/Ml Vial) 5,000 unit SC Q8HR BRADEN Stop: 04/22/25 21:59 Magnesium Sulfate (Magnesium Sulfate Ivpb) 4 gm in 50 mls @ 12.5 mls/hr IV X1 ONE Stop: 04/08/25 19:56 Lisinopril (Lisinopril 20 Mg Tablet) 40 mg PO QDAY BRADEN Stop: 05/09/25 08:59 Ondansetron HCl (Ondansetron Odt 4 Mg Tabrap) 4 mg PO Q6H PRN; Protocol PRN Reason: NAUSEA/EMESIS Stop: 05/08/25 16:01 Sennosides (Senna Tablet) 1 tab PO QDAY BRADEN; Protocol Stop: 05/09/25 08:59 Discontinued Medications Lactated Ringer's (Lactated Ringers) 1,000 mls @ 999 mls/hr IV .Q1H1M ONE Stop: 04/08/25 13:24 Last Infusion: 04/08/25 14:42 Dose: Infused Ceftriaxone Sodium/Dextrose (Rocephin/D5w 1gm Iv Premix) 1 gm in 50 mls @ 100 mls/hr IV X1 ONE Stop: 04/08/25 14:47 Last Infusion: 04/08/25 15:06 Dose: Infused Lactated Ringer's (Lactated Ringers) 1,000 mls @ 999 mls/hr IV .Q1H1M ONE Stop: 04/08/25 15:19 Last Infusion: 04/08/25 15:25 Dose: Infused Oseltamivir Phosphate (Oseltamivir 75 Mg Capsule) 75 mg PO X1 ONE Stop: 04/08/25 15:58 Assessment & Plan Plan Patient is a 74-year-old male with past medical history of NIDDM2 with neuropathy, nephropathy, right eye blindness, 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 #Severe sepsis 2/2 #UTI #Left base PNA Meets 2/4 SIRS criteria based on temperature (reported 101.4F) and WBC 17. On admission lactic acid 2.8, however Pro-Dominic, troponin, LDH all within normal limits. Suspected source of infection likely UTI versus left base PNA. UA was positive for leukocyte esterase, negative nitrites, 57 WBC, 6 RBC, bacteria 4+. TESTED NEGATIVE FOR INFLUENZA A&B. CXR showed left base PNA. Plan: - IV CFX 1 g daily - Oseltamivir 75 mg x1 - Follow up urine and blood cultures #AMS Possibly secondary to sepsis above. Did not pass bedside nurse swallow screen. Per records, patient is AxO3 on last admission. - Pending speech eval - NPO #Lactic acidosis, improving Admission lactic acid 2.8 > 3.3 > 2.5. S/p IV NS x1 in ED and IV LR x1 bolus. - Follow up lactic acid tomorrow morning #DENICE #CKD? Reported history of CKD, likely secondary to hx of DM as patient has many other related complications. Admission Cr 1.7, baseline 1.0-1.2. - IV fluid resuscitation as above - CTM renal function - Avoid nephrotoxic medications #Urinary retention #Hx BPH? Unknown history. Did not arrive with Mcclelaln. Medication list includes finasteride 5mg, possible history of BPH. Unclear etiology. - Bladder scan q4hr - In and out cath, consider Mcclellan cath if recurrent retention - Will call facility tomorrow to obtain history #Hx DM #DM neuropathy Insulin NPH and regular at facility. Has multiple complications including neuropathy, nephropathy, and likely retinopathy. Takes gabapentin 200 mg TID. - SSI step 1 - Continue gabapentin 200 mg TID #HLD #HTN #Insomnia Chronic problems. - Continue home lisiniprol, atorvastatin, and trazodone Health Maintenance Disposition: med tele for sepsis 2/2 UTI DVT prophylaxis: heparin GI prophylaxis: none needed Bowel: Senna Diet: NPO CODE STATUS: FULL Patient plan of care was discussed with the attending physician, Dr. Donaldson. Josy Ma, PGY-1 Attending Provider Attestation/Addendum I attest that I was physically present for the evaluation, physical examination, lab and imaging review of the patient with the residents. I discussed the case with the residents and agree with the findings and plans of care as documented above. After examination of the patient and review of the clinical data I feel that this patient needs admission to the hospital for further treatment/evaluation. Carroll Donaldson MD
[2025-04-08 16:16] LABS: Lactic Acid, 3 HR 3.3 mMol/L (0.4-2.0)
[2025-04-08] MEDS: Magnesium Sulfate 4 GM Ivpb 4 GM/50 ML BAG IV (16:59)
[2025-04-08 18:00] LABS: Lactate (Lactic Acid) 2.5 mMol/L (0.4-2.0)
--- NOTE | 2025-04-08 18:34 | XR_ITS ---
Examination: Retroperitoneal ultrasound, complete Technique: Multiple high resolution grayscale images of the retroperitoneum obtained, including kidneys and bladder. Exam date and time:April 08, 2025, 2127 hrs. Indications: Acute renal insufficiency on laboratory examination today. Findings: Right kidney 10.5 cm cortex 1.2 cm 9 mm right renal cyst. Left ovary obscured by bowel gas Contracted urinary bladder with possible 10 mm stone Prostate 33.4 cc no prostate nodules Impression: Right renal cortical thinning Moderate renal parenchymal scar formation, no hydronephrosis Suspicious for 10 mm bladder calculus
--- NOTE | 2025-04-08 18:35 | PC.NURSE ---
INFORMED DR. DOS SANTOS PATIENT HAD 80ML OF URINE IN THE IN AND OUT CATHETER THAT WAS ORDERED. PER MD PATIENT IS OKAY TO GO UPSTAIRS AND WILL NEED BLADDER SCAN TO MAKE SURE THERE IS NO URINE RETENTION. ALSO MADE MD AWARE OF PATIENT'S TEMPERATURE.
--- NOTE | 2025-04-08 18:53 | PC.NURSE ---
Pt arrived from ED to room 367, transferred to bed max assist, pt alert to self lethargic. Fall precautions placed.
[2025-04-08 20:58] LABS: Reflex Lactate? Y
[2025-04-08 21:35] LABS: Lactic Acid, 3 HR 1.7 mMol/L (0.4-2.0)
[2025-04-08] MEDS: HEPARIN SOD INJ 5000 UNIT/ML VIAL SC (23:28)
[2025-04-09] VITALS (12 sets, daily range): BP systolic 113–163; BP diastolic 60–84; PULSE 50–89; RESP 15–95; TEMP 16.1–36.9; O2SAT 90–99
--- NOTE | 2025-04-09 02:22 | PC.NURSE ---
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
[2025-04-09] MEDS: HEPARIN SOD INJ 5000 UNIT/ML VIAL SC ×3 (05:07→21:01)
[2025-04-09 05:49] LABS: Basophils # (Auto) 0.0 Thou/mm3 (0.0-0.2); Basophils % (Auto) 0 % (0-2.5); Eosinophils # (Auto) 0.4 Thou/mm3 (0.0-0.5); Eosinophils % (Auto) 4 % (0-10); Hematocrit 27.3 % (41.0-53.0); Immature Granulocytes Auto 0.04 Thou/mm3 (0.00-0.00); Lymphocytes # (Auto) 1.9 Thou/mm3 (1.0-4.8); Lymphocytes % (Auto) 17 % (10-50); Mean Corpuscular HGB Conc 31.1 g/dl (31.0-37.0); Mean Corpuscular Hemoglobin 25.1 pg (25.0-35.0); Mean Corpuscular Volume 81 fL (80-100); Monocytes # (Auto) 0.7 Thou/mm3 (0.0-0.8); Monocytes % (Auto) 6 % (0-12); Neutrophils # (Auto) 8.0 Thou/mm3 (1.8-7.7); Neutrophils % (Auto) 72 % (37-80); Nucleated Red Blood Cell # 0.00 Thou/mm3 (0.00-0.00); Nucleated Red Blood Cell % 0 /100 WBC (0); Platelet Count 212 Thou/mm3 (140-440); RDW Standard Deviation 51.1 fL (35.1-43.9); Red Blood Count 3.39 Miln/mm3 (4.50-5.90); White Blood Count 11.0 Thou/mm3 (3.8-10.6)
[2025-04-09 05:56] LABS: Glucose Estimated Average 140 mg/dL (80-131); Hemoglobin A1C 6.5 % Hgb (4.8-6.0)
[2025-04-09 06:13] LABS: Hemoglobin 8.5 g/dL (13.5-16.0)
[2025-04-09 06:30] LABS: Alanine Aminotransferase < 7 U/L (10-49); Albumin, Serum 3.4 gm/dL (3.4-4.8); Anion Gap 10 (7-16); Aspartate Amino Transferase < 8 U/L (0-34); BUN/Creatinine Ratio 28 Ratio (12-20); Bilirubin,Total 0.2 mg/dL (0.3-1.2); Blood Urea Nitrogen 34 mg/dL (9-23); Calcium 9.2 mg/dL (8.3-10.6); Calcium (Corrected) 9.7 mg/dL (8.5-10.1); Carbon Dioxide 28.5 mMol/L (20.0-31.0); Chloride 104 mMol/L (98-107); Creatinine (Component) 1.2 mg/dL (0.6-1.3); Estimated Creatinine Clearance 58.4 mL/min (>60); Glucose 157 mg/dL (74-106); Magnesium 1.8 mg/dL (1.6-2.6); Osmolality,Calculated 293 (275-295); Phosphorous 3.2 mg/dL (2.4-5.1); Potassium 3.6 mMol/L (3.4-5.1); Sodium 142 mMol/L (136-145); Total Protein 6.1 gm/dL (5.7-8.2); eGFR > 60 See Note
[2025-04-09 06:31] LABS: Albumin/Globulin Ratio 1.3 (1.2-2.2); Alkaline Phosphatase 80 U/L (46-116); Globulin 2.7 gm/dL (2.3-3.5)
--- NOTE | 2025-04-09 08:16 | PCS.ST ---
Swallow Evaluation completed. See report for details. Puree/regular liquids. Baseline swallowing skills. ST will follow up.
[2025-04-09] MEDS: OSELTAMIVIR 75 MG CAPSULE PO (09:04)
[2025-04-09] MEDS: ASPIRIN EC 81 MG TABEC PO (09:05)
[2025-04-09] MEDS: cefTRIAXone/D5w 1gm IV premix 1 GM/50 ML BAG IV (09:05)
[2025-04-09] MEDS: FINASTERIDE 5 MG TABLET PO (09:05)
[2025-04-09] MEDS: POTASSIUM CHLORIDE 10% 20 MEQ/15 ML UDC 40 MEQ PO (09:06)
[2025-04-09] MEDS: INSULIN LISPRO (AdmeLOG) 1 UNIT/0.01 ML UNIT SC ×3 (12:11→21:01)
--- NOTE | 2025-04-09 12:40 | PC.SS ---
Rounding: Flu +, poss DC tomorrow 04/10 back to [facility]
--- NOTE | 2025-04-09 13:18 | PC.PT ---
PT eval only. Patient is at his PLOF. Patient has been bedbound for an extended period of time and is dependent for all transfers. RN made aware.
[2025-04-09] MEDS: GABAPENTIN 100 MG CAPSULE 200 MG PO ×2 (13:34→21:00)
--- NOTE | 2025-04-09 14:13 | ESPR_ITS ---
<Statement entered by Manjinder Kohler MD - 04/12/25 16:19> I have personally seen and examined the patient, agree with residents assessment and plan Patient plan of care was discussed with the attending physician, Dr. Anika Kohler, PGY2 Documentation for date of: 04/09/25 Subjective Subjective Interval history: No acute overnight events, had urinary retention later in the afternoon yesterday, however appeared to resolve overnight. Patient does not require Mcclellan this morning, wearing diaper. Denies difficulty urinating. Patient doing much better this morning. Patient is more conversational, alert and oriented x 2 (oriented to self and time, not place). Per review of records, this appears to be patient's baseline. Urine culture grew GNR, will pending final cultures and sensitivities. Will continue IV ceftriaxone as WBC down trended, and patient improving. DENICE resolved with IV fluid resuscitation. Started on Tamiflu, continue for 5-day course. Will resume home labetolol 100 mg due to high BP, will continue lisinopril. Anticipate discharge back to rehab facility tomorrow. Exam Vital Signs Temp Pulse Resp BP Pulse Ox O2 Del Method O2 Flow Rate 61 F L 61 10 L 150/67 H 97 Nasal Cannula 2 04/09/25 12:00 04/09/25 10:39 04/09/25 12:00 04/09/25 12:00 04/09/25 12:00 04/09/25 12:00 04/08/25 23:27 Narrative Exam Physical Exam General: Awake and in no acute distress. Conversational and non-toxic appearing. HEENT: Normocephalic, atraumatic, mucous membranes moist. Missing teeth/dentures. Heart: Regular rate and rhythm, normal S1 and S2, no murmurs. Lungs: Clear to auscultation with no wheezing or crackles. Abdomen: Soft, nondistended, nontender, positive bowel sounds. No guarding or rebound tenderness. Neurologic: Alert and oriented x2 (oriented to self and time, not to place), no gross neurological deficit, and patient able to move all 4 extremities. Extremities: No edema. Above ankle amputation of left foot. Skin: No rash or ecchymoses. Objective Labs 04/09/25 04:32 04/09/25 04:32 Labs: Laboratory Results - last 24 hr 04/08/25 04/08/25 04/08/25 14:50 16:08 17:56 WBC RBC Hgb Hct MCV MCH MCHC RDW Std Deviation Plt Count Neut % (Auto) Lymph % (Auto) Treasure % (Auto) Eos % (Auto) Baso % (Auto) Neut # (Auto) Lymph # (Auto) Treasure # (Auto) Eos # (Auto) Baso # (Auto) Immature Gran # (Auto) Absolute Nucleated RBC Immature Gran % Nucleated RBC % Sodium Potassium Chloride Carbon Dioxide Anion Gap BUN Creatinine Estim Creat Clear Calc eGFR BUN/Creatinine Ratio Glucose Estimated Ave Glu mg/dL Hemoglobin A1c Calculated Osmolality Lactic Acid 3.3 H 2.5 H Calcium Corrected Calcium Phosphorus Magnesium Total Bilirubin AST ALT Alkaline Phosphatase Total Protein Albumin Globulin Albumin/Globulin Ratio Ur Collection Type Clean Catch Urine Color Yellow Urine Clarity Turbid A Urine pH 5.5 Ur Specific Renick 1.021 Urine Protein 1+ A Urine Glucose (UA) Negative Urine Ketones Negative Urine Blood 1+ A Urine Nitrite Negative Urine Bilirubin Negative Urine Urobilinogen (Auto) Negative Ur Leukocyte Esterase Positive Urine RBC 6 H Urine WBC 57 H Ur Squamous Epith Cells < 1 Urine Bacteria 4+ A Hyaline Casts < 1 Ur Culture Indicated? Yes 04/08/25 04/09/25 21:18 04:32 WBC 11.0 H D RBC 3.39 L Hgb 8.5 L Hct 27.3 L MCV 81 MCH 25.1 MCHC 31.1 RDW Std Deviation 51.1 H Plt Count 212 Neut % (Auto) 72 Lymph % (Auto) 17 Treasure % (Auto) 6 Eos % (Auto) 4 Baso % (Auto) 0 Neut # (Auto) 8.0 H Lymph # (Auto) 1.9 Treasure # (Auto) 0.7 Eos # (Auto) 0.4 Baso # (Auto) 0.0 Immature Gran # (Auto) 0.04 H Absolute Nucleated RBC 0.00 Immature Gran % 0 Nucleated RBC % 0 Sodium 142 Potassium 3.6 D Chloride 104 Carbon Dioxide 28.5 Anion Gap 10 BUN 34 H Creatinine 1.2 D Estim Creat Clear Calc 58.4 L eGFR > 60 BUN/Creatinine Ratio 28 H Glucose [address] Glu mg/dL 140 H Hemoglobin A1c 6.5 H Calculated Osmolality 293 Lactic Acid 1.7 Calcium 9.2 Corrected Calcium 9.7 Phosphorus 3.2 Magnesium 1.8 Total Bilirubin 0.2 L AST < 8 ALT < 7 L Alkaline Phosphatase 80 Total Protein 6.1 Albumin 3.4 Globulin 2.7 Albumin/Globulin Ratio 1.3 Ur Collection Type Urine Color Urine Clarity Urine pH Ur Specific Renick Urine Protein Urine Glucose (UA) Urine Ketones Urine Blood Urine Nitrite Urine Bilirubin Urine Urobilinogen (Auto) Ur Leukocyte Esterase Urine RBC Urine WBC Ur Squamous Epith Cells Urine Bacteria Hyaline Casts Ur Culture Indicated? Quality Measures Quality Measures VTE prophylaxis Advance care planning discussed with:: patient Assessment & Plan Assessment Current Active Medications: Generic Name Dose Route Start Last Admin Trade Name Freq PRN Reason Stop Dose Admin Acetaminophen 650 mg 04/08/25 15:55 Acetaminophen 325 Mg Tablet PO 05/08/25 15:54 Q6H PRN Fever >101.5 and pain 1-3 Hydrocodone Bitart/Acetaminophen 1 tab 04/08/25 16:05 Hydrocodone/Apap 5/325 Tablet PO 04/13/25 16:04 Q4H PRN Severe Pain (Scale Score 7-10) Aspirin 81 mg 04/09/25 09:00 04/09/25 09:05 Aspirin Ec 81 Mg Tabec PO 05/09/25 08:59 81 mg QDAY BRADEN Administration Atorvastatin Calcium 40 mg 04/08/25 21:00 04/08/25 23:22 Atorvastatin Calcium 20 Mg Tablet PO 05/08/25 20:59 Not Given HS BRADEN Dextrose 25 ml 04/08/25 16:27 Dextrose 50%-Water Inj 50 Ml Syringe IV 05/08/25 16:26 Q15MIN PRN BG 50-70 responsive npo pt Dextrose 50 ml 04/08/25 16:27 Dextrose 50%-Water Inj 50 Ml Syringe IV 05/08/25 16:26 Q15MIN PRN BG <50 OR BG <70 & pt unresponsive Finasteride 5 mg 04/09/25 09:00 04/09/25 09:05 Finasteride 5 Mg Tablet PO 05/09/25 08:59 5 mg QDAY BRADEN Administration Gabapentin 200 mg 04/08/25 22:00 04/09/25 13:34 Gabapentin 100 Mg Capsule PO 05/08/25 21:59 200 mg TID BRADEN Administration Glucagon 1 mg 04/08/25 16:27 Glucagon Inj 1 Mg Vial IM Q15MIN PRN BG <70, and no IV access Heparin Sodium (Porcine) 5,000 unit 04/08/25 22:00 04/09/25 13:34 Heparin Sod Inj 5000 Unit/Ml Vial SC 04/22/25 21:59 5,000 unit Q8HR BRADEN Administration Ceftriaxone Sodium/Dextrose 1 gm in 50 mls @ 100 mls/hr 04/09/25 09:00 04/09/25 09:05 Rocephin/D5w 1gm Iv Premix IV 04/16/25 08:59 100 mls/hr QDAY BRADEN Administration Insulin Human Lispro 0 unit 04/08/25 17:00 04/09/25 12:11 Insulin Lispro (Admelog) 1 Unit/0.01 Ml Unit SC 05/08/25 16:59 1 unit ACHS BRADEN Administration Protocol Lisinopril 40 mg 04/09/25 09:00 04/09/25 09:04 Lisinopril 20 Mg Tablet PO 05/09/25 08:59 40 mg QDAY BRADEN Administration Ondansetron HCl 4 mg 04/08/25 16:02 Ondansetron Odt 4 Mg Tabrap PO 05/08/25 16:01 Q6H PRN NAUSEA/EMESIS Protocol Oseltamivir Phosphate 30 mg 04/09/25 21:00 Oseltamivir 30 Mg Capsule PO 04/13/25 21:01 BID BRADEN Sennosides 1 tab 04/09/25 09:00 04/09/25 09:04 Senna Tablet PO 05/09/25 08:59 1 tab QDAY BRADEN Administration Protocol Trazodone HCl 50 mg 04/08/25 17:02 Trazodone Hcl 50 Mg Tablet PO 05/08/25 17:01 HS PRN INSOMNIA Plan Patient is a 74-year-old male with past medical history of NIDDM2 with neuropathy, nephropathy, right eye blindness, 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 #Severe sepsis 2/2 #GNR UTI #Influenza A #Left base PNA #AMS, resolved #Lactic acidosis, resolved Meets 2/4 SIRS criteria based on temperature (reported 101.4F) and WBC 17. Admission lactic acid 2.8 > 3.3 > 2.5. S/p IV NS x1 in ED and IV LR x1 bolus. Pro-Dominic, troponin, LDH all within normal limits. Suspected source of infection likely UTI versus left base PNA. UA was positive for leukocyte esterase, negative nitrites, 57 WBC, 6 RBC, bacteria 4+. Tested positive for influenza A. CXR showed left base PNA. UCx positive for GNR. BCxs negative for 24 hours. Oseltamivir 75 mg x1 and CFX x1 in ED. S/p IV LR x3. Plan: - IV CFX 1 g (04/09- - Tamiflu (04/09- - follow up final urine culture and sensitivities - follow up blood culture - droplet precautions #DENICE, resolved Reported history of CKD, likely secondary to hx of DM as patient has many other related complications. Admission Cr 1.7, baseline 1.0-1.2. Back to baseline s/p IV fluids as above. - CTM renal function - Avoid nephrotoxic medications #Urinary retention, resolved #10 mm bladder calculus #Hx BPH Unknown history. Did not arrive with Mcclellan. Presented with retention however self resolved. Medication list includes finasteride 5mg, possible history of BPH. Renal US showed contracted bladder with possible 10 mm stone and prostate 33.4 cc no prostate nodules - home dose finasteride 5 mg #Hx DM #DM neuropathy Insulin NPH and regular at facility. Has multiple complications including neuropathy, nephropathy, and likely retinopathy. Also takes gabapentin 200 mg TID. - SSI step 1 - Continue gabapentin 200 mg TID #HLD #HTN #Insomnia #CVA #Hx dysphagia Chronic problems. - Start home dose labetolol 50 mg BID - Continue home lisinopril 40 mg, atorvastatin 40mg, trazadone 50mg, ASA 81 mg - Speech evaluation - dysphagia 1 diet Health Maintenance [facility] 2[facility]2 UTI DVT prophylaxis: heparin GI prophylaxis: none needed Bowel: Senna Diet: NPO CODE STATUS: FULL Patient plan of care was discussed with the resident Dr. Kohler and the attending physician, Dr. Donaldson. Josy Ma, PGY-1 Attending Provider Attestation/Addendum I attest that I was physically present for the evaluation, physical examination, lab and imaging review of the patient with the residents. I discussed the case with the residents and agree with the findings and plans of care as documented above. Carroll Donaldson MD
[2025-04-09] MEDS: ATORVASTATIN CALCIUM 20 MG TABLET 40 MG PO (20:50)
[2025-04-09] MEDS: OSELTAMIVIR 30 MG CAPSULE PO (20:50)
[2025-04-10] VITALS (9 sets, daily range): BP systolic 116–168; BP diastolic 50–74; PULSE 58–72; RESP 14–20; TEMP 36.2–36.6; O2SAT 96–98
[2025-04-10] MEDS: GABAPENTIN 100 MG CAPSULE 200 MG PO ×2 (05:03→14:07)
[2025-04-10] MEDS: HEPARIN SOD INJ 5000 UNIT/ML VIAL SC ×2 (05:07→14:07)
[2025-04-10 06:00] LABS: Basophils # (Auto) 0.0 Thou/mm3 (0.0-0.2); Basophils % (Auto) 0 % (0-2.5); Eosinophils # (Auto) 0.5 Thou/mm3 (0.0-0.5); Eosinophils % (Auto) 6 % (0-10); Hematocrit 26.8 % (41.0-53.0); Immature Granulocytes Auto 0.02 Thou/mm3 (0.00-0.00); Lymphocytes # (Auto) 1.8 Thou/mm3 (1.0-4.8); Lymphocytes % (Auto) 20 % (10-50); Mean Corpuscular HGB Conc 31.7 g/dl (31.0-37.0); Mean Corpuscular Hemoglobin 25.4 pg (25.0-35.0); Mean Corpuscular Volume 80 fL (80-100); Monocytes # (Auto) 0.6 Thou/mm3 (0.0-0.8); Monocytes % (Auto) 7 % (0-12); Neutrophils # (Auto) 5.9 Thou/mm3 (1.8-7.7); Neutrophils % (Auto) 67 % (37-80); Nucleated Red Blood Cell # 0.00 Thou/mm3 (0.00-0.00); Nucleated Red Blood Cell % 0 /100 WBC (0); Platelet Count 220 Thou/mm3 (140-440); RDW Standard Deviation 50.7 fL (35.1-43.9); Red Blood Count 3.35 Miln/mm3 (4.50-5.90); White Blood Count 8.9 Thou/mm3 (3.8-10.6)
[2025-04-10 06:02] LABS: Hemoglobin 8.5 g/dL (13.5-16.0)
[2025-04-10 06:35] LABS: Alanine Aminotransferase < 7 U/L (10-49); Albumin, Serum 3.6 gm/dL (3.4-4.8); Albumin/Globulin Ratio 1.4 (1.2-2.2); Alkaline Phosphatase 78 U/L (46-116); Anion Gap 11 (7-16); Aspartate Amino Transferase < 8 U/L (0-34); BUN/Creatinine Ratio 27 Ratio (12-20); Bilirubin,Total 0.2 mg/dL (0.3-1.2); Blood Urea Nitrogen 27 mg/dL (9-23); Calcium 9.5 mg/dL (8.3-10.6); Calcium (Corrected) 9.8 mg/dL (8.5-10.1); Carbon Dioxide 28.1 mMol/L (20.0-31.0); Chloride 103 mMol/L (98-107); Creatinine (Component) 1.0 mg/dL (0.6-1.3); Estimated Creatinine Clearance 70.1 mL/min (>60); Globulin 2.5 gm/dL (2.3-3.5); Glucose 116 mg/dL (74-106); Magnesium 1.6 mg/dL (1.6-2.6); Osmolality,Calculated 289 (275-295); Phosphorous 3.1 mg/dL (2.4-5.1); Potassium 3.9 mMol/L (3.4-5.1); Sodium 142 mMol/L (136-145); Total Protein 6.1 gm/dL (5.7-8.2); eGFR > 60 See Note
[2025-04-10] MEDS: OSELTAMIVIR 30 MG CAPSULE PO (09:09)
[2025-04-10] MEDS: cefTRIAXone/D5w 1gm IV premix 1 GM/50 ML BAG IV (09:09)
[2025-04-10] MEDS: FINASTERIDE 5 MG TABLET PO (09:10)
[2025-04-10] MEDS: ASPIRIN EC 81 MG TABEC PO (09:10)
[2025-04-10] MEDS: Magnesium Sulfate 4 GM Ivpb 4 GM/50 ML BAG IV (10:09)
[2025-04-10] MEDS: INSULIN LISPRO (AdmeLOG) 1 UNIT/0.01 ML UNIT SC (12:14)
--- NOTE | 2025-04-10 12:23 | PC.SS ---
Pt was identified as a DC today back to [facility] at [facility]. SS faxed over updated clinicals per Jose ORTIZ request to F# [phone]. Report to be called to [phone]. SS set up transport with [facility] for 1530. Aram ORTIZ made aware as she is covering for Berta ORTIZ. Packet placed on chart on [facility]-S. SS also attempted to contact pt son, Warren [phone], no answer brief message left with call back infor.
--- NOTE | 2025-04-10 14:28 | PD.RESDS ---
Planned Discharge Date 04/10/25 DS: Providers Provider Date of admission: 04/08/25 16:17 Primary care physician: Korina Howell MD Admitting Provider: Carroll Donaldson MD Attending Provider on Admission: Carroll Donaldson MD Consults: 04/08/25 18:35 Referral Speech Therapy Stat Comment: 04/09/25 08:00 Referral Wound Care Routine Comment: wound to back of left leg/buttock 04/09/25 08:22 Referral Physical Therapy Routine Comment: Physician Instructions: Attending Provider on DC: Carroll Donaldson MD Discharging Provider: Josy Ma, DS: Diagnosis Problem List Completed Was Problem List Reviewed/Reconciled?: Yes Hospital Course Hospital Course Hospital course: Summary: Patient is a 74-year-old male with past medical history of NIDDM2 with neuropathy, nephropathy, right eye blindness, 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 ED Course: -Initial vitals: BP 111/58, HR 6 6, RR 16, temp 98.4, 99% on 2 L nasal cannula -Labs: WBC 17.9, hemoglobin 8.7, BUN 46, creatinine 1.7, GFR 42, glucose 210, lactic acid 2.8, magnesium 1.3, BNP 246. Lipase, Pro-Dominic, troponin, LDH all within normal limits. UA was positive for leukocyte esterase, negative nitrites, 57 WBC, 6 RBC, bacteria 4+. Influenza A positive. EKG shows sinus rhythm with RBBB. -Imaging included CXR shows left base pneumonia. -In the ED, patient was given LR 1 L bolus x 2, IV ceftriaxone 1 g x 1. -Patient was admitted for sepsis secondary to influenza and DENICE. Reason for hospitalization: As above patient was admitted for sepsis secondary to UTI versus lipase pneumonia, also presented with DENICE. DENICE resolved with IV fluid resuscitation. Patient tested positive for influenza A, treated with Tamiflu starting 04/09, will need to continue till 04/14 for complete 5-day course. Patient also grew ESBL on urine culture, improved with IV ceftriaxone starting 04/09 however will discharge with Macrobid per sensitivities. Patient will need to continue for another 5 days for complete 7-day course. Continue all other home medications. Wound care was following for patient's chronic wounds, instructions for continued care below. Patient's mental status improved back to baseline, usually alert and oriented x 1- 2. Patient was medically stable on discharge back to rehab center. Discharge Recommendations: Please take amlodipine 5 mg by mouth once a day for high blood pressure Take Nitrofurantoin 100mg capsule for an additional 5 days for UTI Continue Oseltamivir (Tamiflu) 30mg tab twice a day for 2 more day for flu Continue all other home medications Please follow-up with your PCP within 1 week of discharge 1) Wound care: Deep tissue injury to sacrum, Unstageable to left lateral lower leg, healing surgical incision to left BKA: cleanse with wound cleaner carpet and upholstery, apt dry, apply skin prep and cover with allyven dressing daily. Side to side repositioning and negative heel/stump pressure at all times. If your symptoms worsen or if you develop new chest pain, shortness of breath, dizziness or bleeding - please come back to the ED immediately. Hospital Diagnoses: #Severe sepsis 2/2 #ESBL UTI #Influenza A #Left base PNA #AMS, resolved #Lactic acidosis, resolved #DENICE, resolved #Urinary retention, resolved #10 mm bladder calculus #Hx BPH #Hx DM #DM neuropathy #HLD #HTN #Insomnia #CVA #Hx dysphagia Disposition: Safe discharge back to [facility]. Patient plan of care was discussed with the attending physician, Dr. Donaldson. Josy Ma, PGY-1 Time Spent with Patient Time attestation: Total time spent providing and/or coordinating discharge services: 36 min Time spent: Greater than 30 minutes Exam Vital Signs Temp Pulse Resp BP Pulse Ox O2 Del Method O2 Flow Rate 97.3 F 62 18 116/50 L 98 Nasal Cannula 2 04/10/25 12:00 04/10/25 12:10 04/10/25 12:10 04/10/25 12:00 04/10/25 12:10 04/10/25 12:00 04/10/25 12:10 Narrative Exam Physical Exam General: Awake and in no acute distress. Non-toxic appearing. Intermittently staring into space but answering questions appropriately. HEENT: Normocephalic, atraumatic, mucous membranes moist. Missing teeth/dentures. Heart: Regular rate and rhythm, normal S1 and S2, no murmurs. Lungs: Clear to auscultation with no wheezing or crackles. Abdomen: Soft, nondistended, nontender, positive bowel sounds. No guarding or rebound tenderness. Neurologic: Alert and oriented x1 (oriented to self, knew month but not year, not to place), no gross neurological deficit, and patient able to move all 4 extremities. Extremities: No edema. Above ankle amputation of left foot. Missing right toes s/p amputation. Arms somewhat contracted but able to move without difficulty. Skin: No rash or ecchymoses. Discharge Plan Plan Patient Disposition: Xfer Skilled Nsg Fac (SNF) Disposition Comment: [facility] Patient condition on transfer: Stable Care Plan Goals: Please take amlodipine 5 mg by mouth once a day for high blood pressure Take Nitrofurantoin 100mg capsule for an additional 5 days for UTI Continue Oseltamivir (Tamiflu) 30mg tab twice a day for 2 more day for flu Continue all other home medications Please follow-up with your PCP within 1 week of discharge 1) Wound care: Deep tissue injury to sacrum, Unstageable to left lateral lower leg, healing surgical incision to left BKA: cleanse with wound cleaner carpet and upholstery, apt dry, apply skin prep and cover with allyven dressing daily. Side to side repositioning and negative heel/stump pressure at all times. If your symptoms worsen or if you develop new chest pain, shortness of breath, dizziness or bleeding - please come back to the ED immediately. Prescriptions/Referrals Prescriptions/Med Rec: New oseltamivir 30 mg Capsule 30 mg PO BID 2 Days Qty: 4 0RF amlodipine 5 mg Tablet 5 mg PO QDAY 30 Days Qty: 30 0RF nitrofurantoin monohyd/m-cryst 100 mg capsule 100 mg PO BID 5 Days Qty: 10 0RF Rx Instructions: must administer with a meal/food Continued hydrocodone-acetaminophen 5-325 mg Tablet 1 tab PO Q4H PRN (Reason: Severe Pain (Scale Score 7-10)) magnesium hydroxide [Milk of Magnesia] 400 mg/5 mL Suspension 30 ml PO Q24H PRN (Reason: Constipation) triamcinolone acetonide [Nasacort Allergy] 55 mcg Aerosol,Rye 1 spray INTRANASAL QDAY PRN (Reason: Allergy Symptoms) Rx Instructions: administer into each nostril lisinopril 40 mg Tablet 40 mg PO QDAY aspirin 81 mg tablet 81 mg PO QDAY ferrous sulfate [Feosol] 325 mg (65 mg iron) tablet 325 mg PO QDAY sucralfate [Carafate] 1 gram tablet 1 g PO TID guaifenesin [Adult Tussin Chest Congestion] 100 mg/5 mL liquid 200 mg PO Q4H PRN (Reason: cough) ipratropium-albuterol 0.5 mg-3 mg(2.5 mg base)/3 mL solution for nebulization 3 ml inhalation Q4H PRN (Reason: shortness of breath or wheezing) Rx Instructions: until breathing returns to target peak flow/parameters benzonatate 100 mg capsule 100 mg PO TID PRN (Reason: cough) bisacodyl [Dulcolax (bisacodyl)] 10 mg suppository 10 mg TX Q48H PRN (Reason: constipation) cyanocobalamin (vitamin B-12) 1,000 mcg capsule 1,000 mcg PO QDAY Cetaphil Moisturizing Cream 1 applic topical BID Rx Instructions: APPLY TO BILATERAL EXTREMITIES EVERY SHIFT finasteride 5 mg Tablet 5 mg PO QDAY cholecalciferol (vitamin D3) 25 mcg (1,000 unit) Tablet 25 mcg PO QDAY latanoprost 0.005 % Drops 1 drp OPHTHALMIC (EYE) HS Rx Instructions: BOTH EYES trazodone 50 mg Tablet 50 mg PO QHSPRN PRN (Reason: INABILITY TO REST/INSOMIA) Rx Instructions: GIVE 1-2 TABLETS QHS FOR INSOMIA PRN tamsulosin 0.4 mg Capsule 0.8 mg PO QDAY timolol maleate 0.25 % Drops 1 drp OPHTHALMIC (EYE) QDAY Rx Instructions: BOTH EYES pantoprazole 40 mg Tablet,Delayed Release (Dr/Ec) 40 mg PO TID metformin 1,000 mg Tablet 1,000 mg PO BID sertraline 50 mg Tablet 50 mg PO QDAY alum-mag hydroxide-simeth [Mylanta Maximum Strength] 400-400-40 mg/5 mL Suspension 20 ml PO [id number] PRN (Reason: Heartburn) atorvastatin 40 mg Tablet 40 mg PO HS gabapentin 100 mg Capsule 200 mg PO TID insulin NPH and regular human 100 unit/mL (70-30) Suspension 15 unit SUBCUT BID Rx Instructions: Hold for blood glucose <130 Multiple Vitamin-Minerals Tablet 1 tab PO QDAY acetaminophen [Tylenol] 325 mg Tablet 650 mg PO Q4HR PRN (Reason: ELEVATED TEMPERATURE) ondansetron HCl 4 mg Tablet 4 mg PO Q6H PRN (Reason: NAUSEA/EMESIS) Held labetalol 100 mg Tablet 50 mg PO BID Hold Instructions: Resume on 04/17/25. Resume only when you are seen by PCP; you may not need it if it's only for hypertension Rx Instructions: Hold if SBP <90 or HR <60 Referrals: Korina Howell MD [Primary Care Provider] Patient/Caregiver Discharge Instructions Education Materials: Urinary Tract Infections in Men, Pressure Injury Dc, Preventing Common Respiratory ..., When to Use Antibiotics, ED Influenza (Adult) Print Language: Citizen [place] Stand Alone Forms: Kaci Award Info., Patient Portal Info Letter Discharge Order Discharge Orders: Discharge (Routine); Ordered 04/10/25 Ordered By: James Lanza Quality Discharge Quality Measures VTE prophylaxis Attestestation MD Attestation I attest that I was physically present for the evaluation, physical examination, lab and imaging review of the patient with the residents. I discussed the case with the residents and agree with the findings and plans of care as documented above. Carroll Donaldson MD
--- NOTE | 2025-04-10 15:21 | PC.NURSE ---
Called [facility] and gave report to Igor at [phone].
--- NOTE | 2025-04-10 16:14 | PC.SS ---
SS follow up note; SS was contacted by Hannah from [facility] and she informed SS ETA was switched for [id number]. SS updated [employer] and Staff at [facility].
== END 2025-04-10 16:56 | disposition skilled nursing facility (03) | DRG 871 ==
LOC: SERX 15:57 → SERHOLD 16:20 → S3SX 18:54
PROVIDERS: Registered Nurse General Practice; Admitting Provider Student in an Organized Health Care Education/Training Program; Emergency Provider Emergency Medicine; PCP Hospitalist; Visit Provider Student in an Organized Health Care Education/Training Program
DX: A41.50 Gram-negative sepsis, unspecified (principal); J10.00 Influenza due to other identified influenza virus with unspecified type of pneumonia; J18.9 Pneumonia, unspecified organism; N17.9 Acute kidney failure, unspecified; N39.0 Urinary tract infection, site not specified; E87.20 Acidosis, unspecified; R65.20 Severe sepsis without septic shock; F32.9 Major depressive disorder, single episode, unspecified; E11.40 Type 2 diabetes mellitus with diabetic neuropathy, unspecified; E78.5 Hyperlipidemia, unspecified; I12.9 Hypertensive chronic kidney disease with stage 1 through stage 4 chronic kidney disease, or unspecified chronic kidney disease; N18.9 Chronic kidney disease, unspecified; I45.10 Unspecified right bundle-branch block; E11.22 Type 2 diabetes mellitus with diabetic chronic kidney disease; N40.0 Benign prostatic hyperplasia without lower urinary tract symptoms; E11.319 Type 2 diabetes mellitus with unspecified diabetic retinopathy without macular edema; G47.00 Insomnia, unspecified; H54.61 Unqualified visual loss, right eye, normal vision left eye; N32.89 Other specified disorders of bladder; Z86.73 Personal history of transient ischemic attack (TIA), and cerebral infarction without residual deficits; J10.1 Influenza due to other identified influenza virus with other respiratory manifestations; D63.1 Anemia in chronic kidney disease; N21.0 Calculus in bladder; E55.9 Vitamin D deficiency, unspecified; R13.10 Dysphagia, unspecified; Z89.442 Acquired absence of left ankle; Z78.9 Other specified health status; Z79.82 Long term (current) use of aspirin; Z79.84 Long term (current) use of oral hypoglycemic drugs; Z79.899 Other long term (current) drug therapy; Z89.421 Acquired absence of other right toe(s)
CPT/HCPCS: 36415; 71045; 76770; 80053; 81001; 83036; 83605; 83615; 83690; 83735; 83880; 84100; 84145; 84484; 85025; 85610; 85730; 87040; 87077; 87081; 87086; 87186; 87400; 87811; 92610; 93005; 93225; 96361; 96365; 96366; 96372; 97161; 99285; J0696; J1644; J1815; J3475; J7120; A9270

== ENCOUNTER → 2025-04-16 | Outpatient (CLI) | payer MEDICARE, MEDICAID, SELFPAY | END | disposition home or self-care (01) | LOC: SERX 20:48 → SLDO 06-13 09:11 | PROVIDERS: PCP Hospitalist; Referring Provider Hospitalist; Visit Provider Hospitalist | DX: Z01.89 Encounter for other specified special examinations (principal); B95.62 Methicillin resistant Staphylococcus aureus infection as the cause of diseases classified elsewhere | CPT/HCPCS: 87081 ==